=== PATIENT | male | born 1995 | race Two or more races ===

== ENCOUNTER 2024-03-04 08:35 | Emergency (ER) | payer MEDICAID, SELFPAY ==
[2024-03-04 08:46] VITALS: BP 195/97; PULSE 123; RESP 24; TEMP 36.6; O2SAT 95; BMI 29.6
--- NOTE | 2024-03-04 09:04 | PC.NURSE ---
Pt. here from home to bed 1, pt. states he woke up at 5 and went poop then started having a gastritis attack, pt. is diaphoretic and lifting himself off the bed, pt. vomiting and states he has vomited 5 or 6 times. Pt. denies any blood in his poop.
[2024-03-04 09:06] VITALS: PULSE 89
--- NOTE | 2024-03-04 09:08 | EDNOTE_ITS ---
ED Abdominal Pain RME/HPI General Chief Complaint: Abdominal Pain Stated complaint: GASTRITIS Time seen by provider: 03/04/24 08:37 Arrival date/time: 03/04/24 08:35 Limitations: no limitations RME / HPI RME / HPI narrative: 28 year old male with history of gastritis presents to the ED for complaint of gastritis attack beginning this morning. Described as burning in sensation that is located most to the epigastric region, rating as moderate-severe. Accompanied by nausea and vomiting. Mentioned yesterday had more diary products than he normally would and unsure if that is contributing to his symptoms. Stat es his last attack was 2 months ago and evaluated here with improvement. No other associated symptoms or complaints reported. Denies fevers, chills, chest pain, cough, shortness of breath, diarrhea, constipation, or urinary symptoms. Related Data Home Medications ?Medication ?Instructions ?Recorded ?Confirmed omeprazole 20 mg capsule,delayed 20 mg PO QDAY 05/30/23 05/30/23 release trazodone 50 mg tablet 50 mg PO QHSPRN PRN Insomnia 05/30/23 11/13/23 Previous Rx's ?Medication ?Instructions ?Recorded pantoprazole 40 mg tablet,delayed 40 mg PO QDAY #30 tabs 06/10/23 release (Protonix) dicyclomine 20 mg tablet 20 mg PO TID PRN abdominal pain 08/02/23 #20 tabs famotidine 40 mg tablet 40 mg PO BID #14 tabs 08/02/23 ibuprofen 600 mg tablet 600 mg PO Q8H PRN pain #14 tabs 08/02/23 ondansetron 4 mg disintegrating 4 mg PO Q8H PRN nausea and 08/02/23 tablet vomiting #20 tabs metoclopramide HCl 10 mg tablet 10 mg PO Q6H PRN nausea and 09/15/23 (Reglan) vomiting #20 tabs aluminum-mag hydroxide-simethicone 5 ml PO Q3H PRN dyspepsia #3,000 mL 01/03/24 200 mg-200 mg-20 mg/5 mL oral susp (Advanced Antacid-Antigas) ondansetron 4 mg disintegrating 4 mg PO Q8H PRN nausea and 01/03/24 tablet vomiting #14 tabs Allergies Allergy/AdvReac Type Severity Reaction Status Date / Time No Known Allergies Allergy Verified 01/06/24 14:31 Review of Systems Review of Systems Narrative Review of Systems: GEN: No fever, no chills, no weight loss EYES: No discharge, no visual changes, no pain HEENT: No ear pain, no congestion, no sore throat PULM: No shortness of breath, no cough, no congestion CV: No chest pain, no dyspnea on exertion, no palpitations GI: +nausea, +vomiting, no diarrhea, + pain, no constipation : No frequency, no urgency, no dysuria MUSC/SKEL: No joint pain, no back pain SKIN: No rash NEURO: No weakness, no headache Past Medical History Past Medical History MUSCULOSKELETAL: Positive Fractures (Ankle fracture) PSYCHO/SOCIAL: Positive Recreational Drug Use (Vape Marijuana), Depression and Anxiety OTHER HISTORY: Positive Hospitalization Family History FAMILY HISTORY: Positive Family Cardiac Disorders Surgical History SURGICAL: Negative Cardiac Surgery, Endocrine Surgery, Ear Surgery or Neurologic Surgery Social History SMOKING STATUS: Current every day smoker SUBSTANCE USE: marijuana ED Exam General Limitations: Present no limitations General appearance: Present alert and in distress (appears to be in pain, moving in bed) Head Head exam: Present atraumatic, normocephalic and normal inspection Eye Eye exam: Present normal appearance, PERRL and EOMI ENT ENT exam: Present normal exam, normal oropharynx and mucous membranes moist Neck Neck exam: Present normal inspection, full ROM and trachea midline Chest Chest inspection: Present normal inspection and symmetric chest wall rise Respiratory Respiratory exam: Present normal lung sounds bilaterally Cardiovascular Cardiovascular exam: Present regular rate, normal rhythm and normal heart sounds Abdominal Exam Abdominal exam: Present soft, tenderness (generalized moderate tenderness throughout ) and normal bowel sounds Extremities Exam Extremities exam: Present normal inspection and full ROM Back Exam Back exam: Present normal inspection and full ROM Neurological Exam Neurological exam: Present alert, oriented X3 and CN II-XII intact Psychiatric Psychiatric exam: Present normal affect and normal mood Skin Skin exam: Present warm, dry, intact and normal color Course Quality Measures none Orders Category Date Time Status [employer] Repairer STAT Care 03/04/24 09:06 Active Continuous Pulse Oximetry STAT Care 03/04/24 09:06 Active Insert IV STAT Care 03/04/24 09:06 Active NPO STAT Care 03/04/24 09:06 Active CBC Stat Lab 03/04/24 10:02 Completed Comprehensive Metabolic Panel Stat Lab 03/04/24 10:02 Completed Lipase Stat Lab 03/04/24 10:02 Completed Magnesium Stat Lab 03/04/24 10:02 Completed Urinalysis Stat Lab 03/04/24 09:06 Stop Req Famotidine Inj [Pepcid Inj] Med 03/04/24 09:05 Discontinued 20 mg IVP X1 ONE HYDROmorphone INJ [Dilaudid Inj] Med 03/04/24 09:05 Active 1 mg IVP Q1H PRN Ondansetron Inj [Zofran Inj] Med 03/04/24 09:09 Discontinued 4 mg IV X1 ONE Pantoprazole Inj [Protonix Inj] Med 03/04/24 09:05 Discontinued 40 mg IVP X1 ONE Sodium Chloride 0.9% 1000 ml [Ns] 1,000 ml Med 03/04/24 09:05 Discontinued IV 999 mls/hr Sucralfate Susp [Carafate Susp] Med 03/04/24 09:05 Discontinued 1 gm PO X1 ONE mg Hyd/Al Hyd/Patricia Susp [Maalox Susp] Med 03/04/24 09:05 Discontinued 30 ml PO X1 ONE Reevaluation(s) Reevaluation #1: Patient reports improvement after medications. No complaints at this time. We reviewed all the results, analysis, and treatment plans. Patient is amenable to discharge. Strict return precautions were outlined. Patient was discharged in stable condition. Time: 11:20 Vital Signs Vital signs: Vital Signs Temperature 97.9 F 03/04/24 08:46 Pulse Rate 123 H 03/04/24 08:46 Respiratory Rate 24 H 03/04/24 08:46 Blood Pressure 195/97 H 03/04/24 08:46 Pulse Oximetry (%) 95 03/04/24 08:46 Oxygen Delivery Method Room Air 03/04/24 08:46 Pulse ox is 95% on room air which is adequate. Abdominal Pain MDM MDM Narrative MDM Narrative:: IZahraa am scribing for and in the presence of Dr. Draper. Patient data External records reviewed:: [facility] previous records (I reviewed ED visit on 01/08/2024 for similar pain ) Clinical information provided by:: patient Social determinants that could affect healthcare access:: substance use (Marijuana ) Patient has the following chronic illnesses:: Gastritis How is presenting disease/condition affected by chronic disease/condition?: exacerbated by Evaluation data The following diagnostics were reviewed and interpreted by me:: lab results Lab and/or radiology exams considered but not ordered:: None Interpretation Summary: Electrolytes wnl Medications / Prescriptions Medications or Prescriptions considered but not ordered:: None Medication administrations:: Medication Administration History Hydromorphone HCl (Hydromorphone Inj 2 Mg/Ml Vial) 1 mg IVP Q1H PRN PRN Reason: gastritis Stop: 03/04/24 12:06 Last Admin: 03/04/24 10:03 Dose: 1 mg Documented By: Admin: 03/04/24 09:25 Dose: 1 mg Documented By: MS Discontinued Medications Al Hydrox/Mg Hydrox/Simethicone (Mg Hyd/Al Hyd/Patricia (Maalox Reg) Susp 30 Ml Udc) 30 ml PO X1 ONE Stop: 03/04/24 09:06 Last Admin: 03/04/24 09:23 Dose: 30 ml Documented By: MS Famotidine (Famotidine Inj 10 Mg/Ml Vial 2 Ml) 20 mg IVP X1 ONE Stop: 03/04/24 09:06 Last Admin: 03/04/24 09:25 Dose: 20 mg Documented By: MS Sodium Chloride (Ns) 1,000 mls @ 999 mls/hr IV .Q1H1M ONE Stop: 03/04/24 10:05 Last Infusion: 03/04/24 10:52 Dose: Infused Documented By: Admin: 03/04/24 09:36 Dose: 999 mls/hr Documented By: MS Ondansetron HCl (Ondansetron Inj 2 Mg/Ml Inj 2 Ml) 4 mg IV X1 ONE; Protocol Stop: 03/04/24 09:10 Last Admin: 03/04/24 09:24 Dose: 4 mg Documented By: MS Pantoprazole Sodium (Pantoprazole Inj 40 Mg Vial) 40 mg IVP X1 ONE Stop: 03/04/24 09:06 Last Admin: 03/04/24 09:24 Dose: 40 mg Documented By: MS Sucralfate (Sucralfate Susp 1 Gm/10 Ml Udc) 1 gm PO X1 ONE Stop: 03/04/24 09:06 Last Admin: 03/04/24 10:03 Dose: 1 gm Documented By: MS See above Consultations Consultation(s) initiated? (list below): No Diagnosis Differential diagnosis abdominal pain: abdominal pain, calculus of kidney, gastroenteritis and other (Gastritis ) Most likely diagnosis given after review of the tests above:: Gastritis Cyclical vomiting Admission Indicated Admission indicated?: not indicated Admission Request Was there a request for admission?: No Disposition Plan Disposition Plan: Discharge Discharge Attestation Discharge Attestation: The patient and all family members were given an opportunity to ask questions and understood the discharge instructions. Discharge instructions specifically effects, indications for sooner follow up or return to the emergency department, and the expected course of current diagnosis. Patient condition: Stable Discharge Plan Plan Patient Disposition: HOME (Self Care) Disposition Comment: Stable for discharge Patient condition on transfer: Stable Prescriptions/Referrals Prescriptions/Med Rec: No Action ondansetron 4 mg tablet,disintegrating 4 mg PO Q8H PRN (Reason: nausea and vomiting) Qty: 14 0RF alum-mag hydroxide-simeth [Advanced Antacid-Antigas] 200-200-20 mg/5 mL suspension 5 ml PO Q3H PRN (Reason: dyspepsia) Qty: 3000 0RF omeprazole 20 mg capsule,delayed release(DR/EC) 20 mg PO QDAY Patient Comments: 1 CAPSULE 30 MINUTES BEFORE MEAL ORALLY ONCE A DAY 30 DAYS trazodone 50 mg tablet 50 mg PO QHSPRN PRN (Reason: Insomnia) pantoprazole [Protonix] 40 mg tablet,delayed release (DR/EC) 40 mg PO QDAY Qty: 30 0RF dicyclomine 20 mg tablet 20 mg PO TID PRN (Reason: abdominal pain) Qty: 20 0RF ibuprofen 600 mg tablet 600 mg PO Q8H PRN (Reason: pain) Qty: 14 0RF ondansetron 4 mg tablet,disintegrating 4 mg PO Q8H PRN (Reason: nausea and vomiting) Qty: 20 0RF famotidine 40 mg tablet 40 mg PO BID Qty: 14 0RF metoclopramide HCl [Reglan] 10 mg tablet 10 mg PO Q6H PRN (Reason: nausea and vomiting) Qty: 20 0RF Referrals: Lindsay Barrera PA-C [Primary Care Provider] - In 1 week Quang Barrow MD [Physician] - In 1 week Problem List Clinical Impression: Gastritis, Cyclical vomiting Patient/Caregiver Discharge Instructions Discharge Activity: activity as tolerated Education Materials: Treating Gastritis, Understanding Gastritis, Cyclic Vomiting Syndrome, ED Gastritis (Adult) Additional Instructions: Please return to the emergency department for any worsening or any further medical problems You should avoid spicy or fatty foods for the next several days. Please follow-up with your primary care doctor within the next several days Please follow-up with Dr. Barrow within the next week or so. Dr. Barrow is a security assistant or a specialist for the stomach Print Language: Yi Stand Alone Forms: Jenn Award Info., Patient Portal Info Letter
[2024-03-04] MEDS: MG HYD/AL HYD/SIME (Maalox Reg) SUSP 30 ML UDC PO (09:23)
[2024-03-04] MEDS: ONDANSETRON INJ 2 MG/ML INJ 2 ML 4 MG IV (09:24)
[2024-03-04] MEDS: PANTOPRAZOLE INJ 40 MG VIAL IVP (09:24)
[2024-03-04] MEDS: FAMOTIDINE INJ 10 MG/ML VIAL 2 ML 20 MG IVP (09:25)
[2024-03-04] MEDS: HYDROmorphone INJ 2 MG/ML VIAL 1 MG IVP ×2 (09:25→10:03)
[2024-03-04] MEDS: SODIUM CHLORIDE 0.9% 1000 ML 1,000 ML 999 ML IV (09:36)
[2024-03-04] MEDS: SUCRALFATE SUSP 1 GM/10 ML UDC PO (10:03)
[2024-03-04 10:17] VITALS: BP 132/87; PULSE 79; RESP 19; TEMP 36.5; O2SAT 100
[2024-03-04 10:25] LABS: Basophils # (Auto) 0.1 Thou/mm3 (0.0-0.2); Basophils % (Auto) 1 % (0-2.5); Eosinophils % (Auto) 0 % (0-10); Hematocrit 38.8 % (41.0-53.0); Hemoglobin 13.3 g/dL (13.5-16.0); Immature Granulocytes % (Auto) 0 % (0-0); Immature Granulocytes Auto 0.03 Thou/mm3 (0.00-0.00); Lymphocytes # (Auto) 0.5 Thou/mm3 (1.0-4.8); Lymphocytes % (Auto) 4 % (10-50); Mean Corpuscular HGB Conc 34.3 g/dl (31.0-37.0); Mean Corpuscular Hemoglobin 31.9 pg (25.0-35.0); Mean Corpuscular Volume 93 fL (80-100); Monocytes # (Auto) 0.3 Thou/mm3 (0.0-0.8); Monocytes % (Auto) 2 % (0-12); Neutrophils # (Auto) 12.2 Thou/mm3 (1.8-7.7); Neutrophils % (Auto) 93 % (37-80); Nucleated Red Blood Cell % 0 /100 WBC (0); Platelet Count 288 Thou/mm3 (140-440); RDW Standard Deviation 45.5 fL (35.1-43.9); Red Blood Count 4.17 Miln/mm3 (4.50-5.90); White Blood Count 13.1 Thou/mm3 (3.8-10.6)
[2024-03-04 10:43] LABS: Alanine Aminotransferase 76 U/L (10-49); Albumin, Serum 4.5 gm/dL (3.5-5.0); Albumin/Globulin Ratio 2.4 (1.2-2.2); Alkaline Phosphatase 76 U/L (46-116); Anion Gap 8 (7-16); Aspartate Amino Transferase 25 U/L (0-34); BUN/Creatinine Ratio 16 Ratio (12-20); Bilirubin,Total 0.4 mg/dL (0.3-1.2); Blood Urea Nitrogen 11 mg/dL (9-23); Calcium 8.4 mg/dL (8.3-10.6); Calcium (Corrected) 8.4 mg/dL (8.5-10.1); Chloride 110 mMol/L (98-107); Creatinine (Component) 0.7 mg/dL (0.6-1.3); Estimated Creatinine Clearance 169.8 mL/min (>60); Globulin 1.9 gm/dL (2.3-3.5); Glucose 148 mg/dL (74-106); Lipase 38 U/L (12-53); Magnesium 1.9 mg/dL (1.6-2.6); Osmolality,Calculated 287 (275-295); Potassium 3.6 mMol/L (3.4-5.1); Sodium 143 mMol/L (136-145); Total Protein 6.4 gm/dL (5.7-8.2); eGFR > 60 See Note
[2024-03-04 12:00] VITALS: BP 124/89; PULSE 76; RESP 16; TEMP 37; O2SAT 96
== END 2024-03-04 12:06 | disposition home or self-care (01) ==
PROVIDERS: Emergency Provider Emergency Medicine; PCP Physician Assistant
DX: K29.70 Gastritis, unspecified, without bleeding (principal)
CPT/HCPCS: 36415; 80053; 81001; 83690; 83735; 85025; 96361; 96374; 96375; 99284; J2405; J2470; J3490; J7030; A9270

== ENCOUNTER 2024-03-05 09:00 | Emergency (ER) | payer MEDICAID, SELFPAY ==
[2024-03-05 09:11] VITALS: BP 148/67; PULSE 90; RESP 18; TEMP 36.6; O2SAT 97; BMI 27.9
--- NOTE | 2024-03-05 09:19 | EKG_ITS ---
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
--- NOTE | 2024-03-05 09:42 | PD.EDRME ---
Rapid Medical Screening Exam RME Arrival date/time: 03/05/24 09:00 28-year-old male with a history of alcoholism reports with complaints of abdominal pain and vomiting Chief Complaint: Abdominal Pain Time Seen by Provider: 03/05/24 09:06 Vital signs: Vital Signs Temperature 97.9 F 03/05/24 09:11 Pulse Rate 90 03/05/24 09:11 Respiratory Rate 18 03/05/24 09:11 Blood Pressure 148/67 H 03/05/24 09:11 Pulse Oximetry (%) 97 03/05/24 09:11 Oxygen Delivery Method Room Air 03/05/24 09:11
[2024-03-05] MEDS: SODIUM CHLORIDE 0.9% 1000 ML 1,000 ML 999 ML IV (09:50)
[2024-03-05] MEDS: METOCLOPRAMIDE INJ 5 MG/ML VIAL 2 ML 10 MG IVP (09:50)
[2024-03-05 10:27] LABS: Alcohol, Blood Medical < 3.0 mg/dL (0-10.0)
--- NOTE | 2024-03-05 10:29 | PD.EDABDPN ---
ED Abdominal Pain RME/HPI General Chief Complaint: Abdominal Pain Stated complaint: ABDOMINAL PAIN Time seen by provider: 03/05/24 09:06 Arrival date/time: 03/05/24 09:00 Limitations: no limitations RME / HPI RME / HPI narrative: 03/05/24 09:00 28-year-old male with a history of alcoholism reports with complaints of abdominal pain and vomiting DR. KAIA GRIMES ED EVALUATION: 28 year old male with history of gastritis presents to the ED for complaint of abdominal pain beginning this morning. Pain described as burning in sensation that is located most to the epigastric region, rating as severe. Accompanied by nausea and vomiting. Reportedly pain today is similar to previous gastritis attacks and was last evaluated here yesterday. Denies eating any spicy foods at home. Denies fevers, chills, chest pain, cough, shortness of breath, diarrhea, constipation, or urinary symptoms. Patient mentioned he had been referred to GI at [facility] in [place] and is pending an appointment. Related Data Home Medications ?Medication ?Instructions ?Recorded ?Confirmed omeprazole 20 mg capsule,delayed 20 mg PO QDAY 05/30/23 05/30/23 release trazodone 50 mg tablet 50 mg PO QHSPRN PRN Insomnia 05/30/23 11/13/23 Previous Rx's ?Medication ?Instructions ?Recorded pantoprazole 40 mg tablet,delayed 40 mg PO QDAY #30 tabs 06/10/23 release (Protonix) dicyclomine 20 mg tablet 20 mg PO TID PRN abdominal pain 08/02/23 #20 tabs famotidine 40 mg tablet 40 mg PO BID #14 tabs 08/02/23 ibuprofen 600 mg tablet 600 mg PO Q8H PRN pain #14 tabs 08/02/23 ondansetron 4 mg disintegrating 4 mg PO Q8H PRN nausea and 08/02/23 tablet vomiting #20 tabs metoclopramide HCl 10 mg tablet 10 mg PO Q6H PRN nausea and 09/15/23 (Reglan) vomiting #20 tabs aluminum-mag hydroxide-simethicone 5 ml PO Q3H PRN dyspepsia #3,000 mL 01/03/24 200 mg-200 mg-20 mg/5 mL oral susp (Advanced Antacid-Antigas) ondansetron 4 mg disintegrating 4 mg PO Q8H PRN nausea and 01/03/24 tablet vomiting #14 tabs famotidine 40 mg tablet (Pepcid) 40 mg PO BID #30 tabs 03/10/24 metoclopramide HCl 10 mg tablet 10 mg PO Q6H PRN nausea and 03/10/24 (Reglan) vomiting #30 tabs Allergies Allergy/AdvReac Type Severity Reaction Status Date / Time No Known Allergies Allergy Verified 03/05/24 09:01 Review of Systems Review of Systems Narrative Review of Systems: GEN: No fever, no chills, no weight loss EYES: No discharge, no visual changes, no pain HEENT: No ear pain, no congestion, no sore throat PULM: No shortness of breath, no cough, no congestion CV: No chest pain, no dyspnea on exertion, no palpitations GI: + nausea, + vomiting, no diarrhea, +pain, no constipation : No frequency, no urgency, no dysuria MUSC/SKEL: No joint pain, no back pain SKIN: No rash PSYCH: No hallucinations, no depression HEME/LYMPH: No easy bleeding or bruising tendencies NEURO: No weakness, no headache Past Medical History Past Medical History MUSCULOSKELETAL: Positive Fractures (Ankle fracture) PSYCHO/SOCIAL: Positive Recreational Drug Use (Vape Marijuana), Depression and Anxiety OTHER HISTORY: Positive Hospitalization Family History FAMILY HISTORY: Positive Family Cardiac Disorders; Negative Family Psychiatric Problems, Family Respiratory Disorders, Family Gastrointestinal Problems, Family Cancer, Family Surgery or Family Anesthesia Reaction Surgical History SURGICAL: Negative Cardiac Surgery, Endocrine Surgery, Ear Surgery or Neurologic Surgery Social History SMOKING STATUS: Current every day smoker SUBSTANCE USE: marijuana ED Exam General Limitations: Present no limitations General appearance: Present alert and other (Appears in pain, moving on the gurney ) Head Head exam: Present atraumatic, normocephalic and normal inspection Eye Eye exam: Present normal appearance, PERRL and EOMI ENT ENT exam: Present normal exam, normal oropharynx and mucous membranes moist Neck Neck exam: Present normal inspection, full ROM and trachea midline Chest Chest inspection: Present normal inspection and symmetric chest wall rise Respiratory Respiratory exam: Present normal lung sounds bilaterally Cardiovascular Cardiovascular exam: Present regular rate, normal rhythm and normal heart sounds Abdominal Exam Abdominal exam: Present soft, tenderness (generalized moderate tenderness throughout ) and normal bowel sounds Extremities Exam Extremities exam: Present normal inspection and full ROM Back Exam Back exam: Present normal inspection and full ROM Neurological Exam Neurological exam: Present alert, oriented X3 and CN II-XII intact Psychiatric Psychiatric exam: Present normal affect and normal mood Skin Skin exam: Present warm, dry, intact and normal color Course Quality Measures none Orders Category Date Time Status [employer] STAT Care 03/05/24 10:31 Completed EKG (ED ONLY) *Do not use* NOW Care 03/05/24 09:19 Completed Discharge Routine Discharge 03/05/24 15:04 Active EKG (ED Only) Stat Exams 03/05/24 09:19 Draft XR chest 1V portable Stat Exams 03/05/24 14:00 Completed Alcohol, Blood Medical Stat Lab 03/05/24 09:50 Completed CBC Stat Lab 03/05/24 09:50 Completed Comprehensive Metabolic Panel Stat Lab 03/05/24 09:50 Completed Lipase Stat Lab 03/05/24 09:50 Completed Bismuth Subsalicyl [Pepto-Bismol] Med 03/05/24 15:15 Discontinued 2 tab PO X1 ONE DiphenhydrAMINE INJ [Benadryl Inj] Med 03/05/24 10:31 Discontinued 12.5 mg IVP X1 ONE Famotidine Inj [Pepcid Inj] Med 03/05/24 10:31 Discontinued 20 mg IVP X1 ONE Folic Acid Inj Med 03/05/24 09:18 Discontinued 1 mg IM X1 ONE HYDROmorphone INJ [Dilaudid Inj] Med 03/05/24 10:31 Discontinued 1 mg IVP X1 ONE HYDROmorphone INJ [Dilaudid Inj] Med 03/05/24 13:15 Discontinued 1 mg IVP X1 ONE Metoclopramide Inj [Reglan Inj] Med 03/05/24 09:14 Discontinued 10 mg IVP X1 ONE Multivitamin Inj [Infuvite Inj] Med 03/05/24 09:18 Discontinued 10 ml IV X1 ONE Sodium Chloride 0.9% 1000 ml [Ns] 1,000 ml Med 03/05/24 09:14 Discontinued IV 999 mls/hr Sucralfate Susp [Carafate Susp] Med 03/05/24 10:31 Discontinued 1 gm PO X1 ONE Thiamine Inj [Vitamin B-1 Inj] Med 03/05/24 09:18 Discontinued 100 mg IM X1 ONE mg Hyd/Al Hyd/Patricia Susp [Maalox Susp] Med 03/05/24 10:31 Discontinued 30 ml PO X1 ONE Reevaluation(s) Reevaluation #1: Patient still complains of pain, will order additional medications. Time: 10:30 Vital Signs Vital signs: Vital Signs Temperature 97.9 F 03/05/24 09:11 Pulse Rate 90 03/05/24 09:11 Respiratory Rate 18 03/05/24 09:11 Blood Pressure 148/67 H 03/05/24 09:11 Pulse Oximetry (%) 97 03/05/24 09:11 Oxygen Delivery Method Room Air 03/05/24 09:11 Pulse ox is 97% on room air which is adequate. Abdominal Pain MDM MDM Narrative MDM Narrative:: Zahraa Hoang am scribing for and in the presence of Dr. Draper. Patient data External records reviewed:: [facility] previous records (I reviewed yesterdays ED visit for similar pain ) Clinical information provided by:: patient Social determinants that could affect healthcare access:: substance use (Marijuana ) Patient has the following chronic illnesses:: Gastritis How is presenting disease/condition affected by chronic disease/condition?: caused by Evaluation data The following diagnostics were reviewed and interpreted by me:: lab results and EKG tracing(s) Lab and/or radiology exams considered but not ordered:: None Interpretation Summary: WBC elevated at 12.4 however improved from yesterdays visit Medications / Prescriptions Medications or Prescriptions considered but not ordered:: None Medication administrations:: Medication Administration History Discontinued Medications Al Hydrox/Mg Hydrox/Simethicone (Mg Hyd/Al Hyd/Patricia (Maalox Reg) Susp 30 Ml Udc) 30 ml PO X1 ONE Stop: 03/05/24 10:32 Last Admin: 03/05/24 10:45 Dose: 30 ml Documented By: FELICIA Bismuth Subsalicylate (Bismuth Subsalicyl 1 Tablet (Pepto-Bismol)) 2 tab PO X1 ONE Stop: 03/05/24 15:16 Last Admin: 03/05/24 15:23 Dose: 2 tab Documented By: CORNELIUS Diphenhydramine HCl (Diphenhydramine Inj 50 Mg/Ml Vial) 12.5 mg IVP X1 ONE Stop: 03/05/24 10:32 Last Admin: 03/05/24 10:47 Dose: 12.5 mg Documented By: FELICIA Famotidine (Famotidine Inj 10 Mg/Ml Vial 2 Ml) 20 mg IVP X1 ONE Stop: 03/05/24 10:32 Last Admin: 03/05/24 10:47 Dose: 20 mg Documented By: FELICIA Folic Acid (Folic Acid Inj 1 Mg/0.2 Ml) 1 mg IM X1 ONE Stop: 03/05/24 09:19 Last Admin: 03/05/24 10:36 Dose: Not Given Documented By: VG Non-Admin Reason: Discontinued Hydromorphone HCl (Hydromorphone Inj 2 Mg/Ml Vial) 1 mg IVP X1 ONE Stop: 03/05/24 10:32 Last Admin: 03/05/24 10:44 Dose: 1 mg Documented By: FELICIA Hydromorphone HCl (Hydromorphone Inj 2 Mg/Ml Vial) 1 mg IVP X1 ONE Stop: 03/05/24 13:16 Last Admin: 03/05/24 13:31 Dose: 1 mg Documented By: FELICIA Sodium Chloride (Ns) 1,000 mls @ 999 mls/hr IV .Q1H1M ONE Stop: 03/05/24 10:14 Last Infusion: 03/05/24 11:35 Dose: Infused Documented By: Admin: 03/05/24 09:50 Dose: 999 mls/hr Documented By: FELICIA Metoclopramide HCl (Metoclopramide Inj 5 Mg/Ml Vial 2 Ml) 10 mg IVP X1 ONE; Protocol Stop: 03/05/24 09:15 Last Admin: 03/05/24 09:50 Dose: 10 mg Documented By: FELICIA Multivitamins/Minerals (Multivitamin Inj 10 Ml Vial) 10 ml IV X1 ONE Stop: 03/05/24 09:19 Last Admin: 03/05/24 10:36 Dose: Not Given Documented By: VG Non-Admin Reason: Cancelled by Provider Sucralfate (Sucralfate Susp 1 Gm/10 Ml Udc) 1 gm PO X1 ONE Stop: 03/05/24 10:32 Last Admin: 03/05/24 10:50 Dose: 1 gm Documented By: FELICIA Thiamine HCl (Thiamine Inj 100 Mg/Ml Vial 2 Ml) 100 mg IM X1 ONE Stop: 03/05/24 09:19 Last Admin: 03/05/24 10:36 Dose: Not Given Documented By: VG Non-Admin Reason: Discontinued See above Consultations Consultation(s) initiated? (list below): No Diagnosis Differential diagnosis abdominal pain: abdominal pain, acute appendicitis, calculus of kidney, constipation and other (Gastritis ) Most likely diagnosis given after review of the tests above:: gastritis Admission Indicated Admission indicated?: not indicated Admission Request Was there a request for admission?: No Disposition Plan Disposition Plan: Discharge Discharge Attestation Discharge Attestation: The patient and all family members were given an opportunity to ask questions and understood the discharge instructions. Discharge instructions specifically effects, indications for sooner follow up or return to the emergency department, and the expected course of current diagnosis. Patient condition: Stable Discharge Plan Plan Patient Disposition: HOME (Self Care) Disposition Comment: Stable for discharge Patient condition on transfer: Stable Prescriptions/Referrals Prescriptions/Med Rec: No Action ondansetron 4 mg tablet,disintegrating 4 mg PO Q8H PRN (Reason: nausea and vomiting) Qty: 14 0RF alum-mag hydroxide-simeth [Advanced Antacid-Antigas] 200-200-20 mg/5 mL suspension 5 ml PO Q3H PRN (Reason: dyspepsia) Qty: 3000 0RF omeprazole 20 mg capsule,delayed release(DR/EC) 20 mg PO QDAY Patient Comments: 1 CAPSULE 30 MINUTES BEFORE MEAL ORALLY ONCE A DAY 30 DAYS trazodone 50 mg tablet 50 mg PO QHSPRN PRN (Reason: Insomnia) pantoprazole [Protonix] 40 mg tablet,delayed release (DR/EC) 40 mg PO QDAY Qty: 30 0RF dicyclomine 20 mg tablet 20 mg PO TID PRN (Reason: abdominal pain) Qty: 20 0RF ibuprofen 600 mg tablet 600 mg PO Q8H PRN (Reason: pain) Qty: 14 0RF ondansetron 4 mg tablet,disintegrating 4 mg PO Q8H PRN (Reason: nausea and vomiting) Qty: 20 0RF famotidine 40 mg tablet 40 mg PO BID Qty: 14 0RF metoclopramide HCl [Reglan] 10 mg tablet 10 mg PO Q6H PRN (Reason: nausea and vomiting) Qty: 20 0RF metoclopramide HCl [Reglan] 10 mg tablet 10 mg PO Q6H PRN (Reason: nausea and vomiting) Qty: 30 0RF famotidine [Pepcid] 40 mg tablet 40 mg PO BID Qty: 30 0RF Referrals: [facility] [Outside] - In 1 week No Primary/Family,Physician [Primary Care Provider] - In 1 week Problem List Clinical Impression: Gastritis, Vomiting Patient/Caregiver Discharge Instructions Discharge Activity: activity as tolerated Diet Instructions: A gastritis diet involves eating bland, low-fat foods that are easy to digest. You should avoid foods that are: Spicy, Acidic, Fried, Fatty, Processed, Sugary, Caffeinated, and Alcoholic. Here are some foods you can eat on a gastritis diet: Whole grains: Brown bread, brown rice, and whole grain pasta Lean meats: Chicken and fish, preferably roasted, grilled, or boiled Eggs: A common inclusion in bland diets Leafy greens: Spinach, kale, and Bolivian chard Oats: Plain, unflavored oats are a good source of soluble fiber Lizzie: Can soothe stomach inflammation and alleviate nausea and bloating Probiotic foods: Fermented milk products like yogurt contain bacteria that promote digestion Education Materials: Understanding Gastritis, Anatomy of the Digestive System, ED Diet for Vomiting or ..., ED Gastritis (Adult) Additional Instructions: Return to the emergency department for any worsening or any further medical problem Please follow-up with your primary care doctor within the next several days Print Language: Japanese Stand Alone Forms: Jenn Award Info., Patient Portal Info Letter
[2024-03-05] MEDS: HYDROmorphone INJ 2 MG/ML VIAL 1 MG IVP ×2 (10:44→13:31)
[2024-03-05] MEDS: MG HYD/AL HYD/SIME (Maalox Reg) SUSP 30 ML UDC PO (10:45)
[2024-03-05] MEDS: DiphenhydrAMINE INJ 50 MG/ML VIAL 12.5 MG IVP (10:47)
[2024-03-05] MEDS: FAMOTIDINE INJ 10 MG/ML VIAL 2 ML 20 MG IVP (10:47)
[2024-03-05] MEDS: SUCRALFATE SUSP 1 GM/10 ML UDC PO (10:50)
[2024-03-05 10:54] LABS: Alanine Aminotransferase 71 U/L (10-49); Albumin, Serum 4.9 gm/dL (3.5-5.0); Albumin/Globulin Ratio 2.3 (1.2-2.2); Alkaline Phosphatase 69 U/L (46-116); Anion Gap 9 (7-16); Aspartate Amino Transferase 31 U/L (0-34); BUN/Creatinine Ratio 11 Ratio (12-20); Basophils # (Auto) 0.1 Thou/mm3 (0.0-0.2); Basophils % (Auto) 0 % (0-2.5); Bilirubin,Total 0.5 mg/dL (0.3-1.2); Blood Urea Nitrogen 9 mg/dL (9-23); Calcium 9.2 mg/dL (8.3-10.6); Calcium (Corrected) 9.2 mg/dL (8.5-10.1); Carbon Dioxide 23.9 mMol/L (20.0-31.0); Chloride 106 mMol/L (98-107); Creatinine (Component) 0.8 mg/dL (0.6-1.3); Eosinophils % (Auto) 0 % (0-10); Estimated Creatinine Clearance 144.7 mL/min (>60); Globulin 2.1 gm/dL (2.3-3.5); Glucose 138 mg/dL (74-106); Hematocrit 41.4 % (41.0-53.0); Hemoglobin 14.4 g/dL (13.5-16.0); Immature Granulocytes % (Auto) 0 % (0-0); Immature Granulocytes Auto 0.05 Thou/mm3 (0.00-0.00); Lipase 33 U/L (12-53); Lymphocytes # (Auto) 0.8 Thou/mm3 (1.0-4.8); Lymphocytes % (Auto) 7 % (10-50); Mean Corpuscular HGB Conc 34.8 g/dl (31.0-37.0); Mean Corpuscular Volume 92 fL (80-100); Monocytes # (Auto) 0.5 Thou/mm3 (0.0-0.8); Monocytes % (Auto) 4 % (0-12); Neutrophils # (Auto) 10.9 Thou/mm3 (1.8-7.7); Neutrophils % (Auto) 88 % (37-80); Nucleated Red Blood Cell % 0 /100 WBC (0); Osmolality,Calculated 278 (275-295); Platelet Count 325 Thou/mm3 (140-440); Potassium 3.6 mMol/L (3.4-5.1); RDW Standard Deviation 45.9 fL (35.1-43.9); Sodium 139 mMol/L (136-145); White Blood Count 12.4 Thou/mm3 (3.8-10.6); eGFR > 60 See Note
[2024-03-05 12:00] VITALS: PULSE 72
[2024-03-05 12:04] VITALS: BP 146/96; PULSE 100; RESP 15; TEMP 36.7; O2SAT 99
--- NOTE | 2024-03-05 14:00 | XR_ITS ---
Examination: AP chest single view Technique: AP portable semiupright chest single view Exam date and time: March 05, 2024 1407 hrs. Comparison September 06, 2020 Indications: Onset chest pain today. Findings: Normal heart size Lungs are clear. The osseous structures are intact Impression: No active disease
[2024-03-05 14:31] VITALS: BP 127/89; PULSE 93; RESP 15; O2SAT 97
--- NOTE | 2024-03-05 15:11 | PC.NURSE ---
spoke w/pharmacy regarding med they will bring it
[2024-03-05] MEDS: BISMUTH SUBSALICYL 1 TABLET (Pepto-Bismol) 2 TAB PO (15:23)
[2024-03-05 15:40] VITALS: BP 125/65; PULSE 90; RESP 16; TEMP 36.6; O2SAT 99
== END 2024-03-05 15:40 | disposition home or self-care (01) ==
PROVIDERS: Physician Assistant; Emergency Provider Emergency Medicine
DX: K29.70 Gastritis, unspecified, without bleeding (principal); R07.9 Chest pain, unspecified
CPT/HCPCS: 36415; 71045; 80053; 80320; 83690; 85025; 93005; 96361; 96374; 96375; 96376; 99284; J1200; J2765; J3490; J7030; A9270; G0480

== ENCOUNTER 2024-03-10 19:34 | Emergency (ER) | payer MEDICAID, SELFPAY ==
[2024-03-10 19:42] VITALS: BP 159/75; PULSE 106; RESP 20; TEMP 37; O2SAT 98; BMI 28.1
--- NOTE | 2024-03-10 19:57 | EDNOTE_ITS ---
<Statement entered by Janet Nieves MD - 03/11/24 19:39> As co-signing physician, I was present and available for consult prn. I concur with the plan and care as documented by the midlevel provider. ED Abdominal Pain RME/HPI General Chief Complaint: Abdominal Pain Stated complaint: ABD PAIN Time seen by provider: 03/10/24 19:47 Arrival date/time: 03/10/24 19:34 RME / HPI RME / HPI narrative: 28-year-old male patient with significant history of gastritis in the past, came in for evaluation regarding epigastric tenderness. Onset of symptoms since earlier today as sudden onset of epigastric tenderness, severity moderate associated with nausea. Patient had surgery today right foot in [facility] for foot reconstruction according to him. Patient was given ketamine prior to arrival. Denies any other complaints or medications taken prior to arrival. Related Data Home Medications ?Medication ?Instructions ?Recorded ?Confirmed omeprazole 20 mg capsule,delayed 20 mg PO QDAY 05/30/23 05/30/23 release trazodone 50 mg tablet 50 mg PO QHSPRN PRN Insomnia 05/30/23 11/13/23 Previous Rx's ?Medication ?Instructions ?Recorded pantoprazole 40 mg tablet,delayed 40 mg PO QDAY #30 tabs 06/10/23 release (Protonix) dicyclomine 20 mg tablet 20 mg PO TID PRN abdominal pain 08/02/23 #20 tabs famotidine 40 mg tablet 40 mg PO BID #14 tabs 08/02/23 ibuprofen 600 mg tablet 600 mg PO Q8H PRN pain #14 tabs 08/02/23 ondansetron 4 mg disintegrating 4 mg PO Q8H PRN nausea and 08/02/23 tablet vomiting #20 tabs metoclopramide HCl 10 mg tablet 10 mg PO Q6H PRN nausea and 09/15/23 (Reglan) vomiting #20 tabs aluminum-mag hydroxide-simethicone 5 ml PO Q3H PRN dyspepsia #3,000 mL 01/03/24 200 mg-200 mg-20 mg/5 mL oral susp (Advanced Antacid-Antigas) ondansetron 4 mg disintegrating 4 mg PO Q8H PRN nausea and 01/03/24 tablet vomiting #14 tabs famotidine 40 mg tablet (Pepcid) 40 mg PO BID #30 tabs 03/10/24 metoclopramide HCl 10 mg tablet 10 mg PO Q6H PRN nausea and 03/10/24 (Reglan) vomiting #30 tabs Allergies Allergy/AdvReac Type Severity Reaction Status Date / Time No Known Allergies Allergy Verified 03/05/24 09:01 Review of Systems Review of Systems Narrative Review of Systems: Review of system reviewed and within normal limits except mentioned in HPI ED Exam Narrative Physical exam: VITAL SIGNS: Reviewed. GENERAL APPEARANCE: Alert and interactive, follows commands, no acute distress, HEAD AND FACE: Non-traumatic. ENT: PERRL, pink conjunctivitis, eyelid no trauma, Mucous membrane moist. NECK: Supple, nontender, no nuchal rigidity. CHEST: No tenderness, no crepitus, no paradoxical movement, no retractions. LUNGS: Clear, well ventilated, symmetric, no rales, no wheezing, no ronchi, no stridor, good breath sounds bilaterally. HEART: Regular rate, regular rhythm, no murmur, no gallops. ABDOMEN: Soft, positive bowel sounds, nondistended, no guarding, epigastric tenderness, no rebound, no masses, RECTAL: Deferred. GENITAL: Deferred. NEUROLOGICAL: Gross motor function intact sensory function intact, Appropriate for age. MUSCULOSKELETAL: low back nontender, full range of motion. EXTREMITIES: Nontender, full range of motion. SKIN: Color pink, dry, no rash, no lacerations, no abrasions, no contusions. LYMPHATICS: Deferred. Course Quality Measures none Orders Category Date Time Status CBC [CBC] Stat Lab 03/10/24 20:44 Completed CMP [Comprehensive Metabolic Panel] Stat Lab 03/10/24 20:44 Completed Lipase Stat Lab 03/10/24 20:44 Completed DiphenhydrAMINE INJ [Benadryl Inj] Med 03/10/24 19:54 Discontinued 50 mg IVP X1 ONE Famotidine Inj [Pepcid Inj] Med 03/10/24 19:55 Discontinued 20 mg IVP X1 ONE Haloperidol Lactate [Haldol Inj] Med 03/10/24 19:56 Discontinued 5 mg IM X1 ONE Metoclopramide Inj [Reglan Inj] Med 03/10/24 19:54 Discontinued 10 mg IVP X1 ONE Vital Signs Vital signs: Vital Signs Temperature 98.6 F 03/10/24 19:42 Pulse Rate 106 H 03/10/24 19:42 Respiratory Rate 20 03/10/24 19:42 Blood Pressure 159/75 H 03/10/24 19:42 Pulse Oximetry (%) 98 03/10/24 19:42 Oxygen Delivery Method Room Air 03/10/24 19:42 Abdominal Pain MDM MDM Narrative MDM Narrative:: Patient's laboratory workup all came back unremarkable. Patient was given Haldol, Reglan, Benadryl, and Pepcid with complete resolution of symptoms. 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 CBC CMP all came back normal. Lipase is normal Medications / Prescriptions Medications or Prescriptions considered but not ordered:: None Medication administrations:: Medication Administration History Discontinued Medications Diphenhydramine HCl (Diphenhydramine Inj 50 Mg/Ml Vial) 50 mg IVP X1 ONE Stop: 03/10/24 19:55 Last Admin: 03/10/24 20:01 Dose: 50 mg Documented By: CVL Famotidine (Famotidine Inj 10 Mg/Ml Vial 2 Ml) 20 mg IVP X1 ONE Stop: 03/10/24 19:56 Last Admin: 03/10/24 20:00 Dose: 20 mg Documented By: CVL Haloperidol Lactate (Haloperidol Lact Inj 5 Mg/Ml Vial) 5 mg IM X1 ONE Stop: 03/10/24 19:57 Last Admin: 03/10/24 19:59 Dose: 5 mg Documented By: CVL Metoclopramide HCl (Metoclopramide Inj 5 Mg/Ml Vial 2 Ml) 10 mg IVP X1 ONE; Protocol Stop: 03/10/24 19:55 Last Admin: 03/10/24 20:04 Dose: 10 mg Documented By: CVL Reglan, Haldol, famotidine and Benadryl Consultations Consultation(s) initiated? (list below): No Diagnosis Differential diagnosis abdominal pain: abdominal pain, gastroenteritis, pancreatitis and other (Gastritis) Most likely diagnosis given after review of the tests above:: Gastritis, abdominal pain Admission Indicated Admission indicated?: indicated Explain why admission is indicated or not indicated:: Stable for discharge Admission Request Was there a request for admission?: No Disposition Plan Disposition Plan: Discharge Discharge Attestation Discharge Attestation: The patient was given an opportunity to ask questions and understood the discharge instructions. Discharge instructions specifically effects, indications for sooner follow up or return to the emergency department, and the expected course of current diagnosis. Patient condition: Stable Discharge Plan Plan Patient Disposition: HOME (Self Care) Disposition Comment: stable Prescriptions/Referrals Prescriptions/Med Rec: New metoclopramide HCl [Reglan] 10 mg tablet 10 mg PO Q6H PRN (Reason: nausea and vomiting) Qty: 30 0RF famotidine [Pepcid] 40 mg tablet 40 mg PO BID Qty: 30 0RF No Action ondansetron 4 mg tablet,disintegrating 4 mg PO Q8H PRN (Reason: nausea and vomiting) Qty: 14 0RF alum-mag hydroxide-simeth [Advanced Antacid-Antigas] 200-200-20 mg/5 mL suspension 5 ml PO Q3H PRN (Reason: dyspepsia) Qty: 3000 0RF omeprazole 20 mg capsule,delayed release(DR/EC) 20 mg PO QDAY Patient Comments: 1 CAPSULE 30 MINUTES BEFORE MEAL ORALLY ONCE A DAY 30 DAYS trazodone 50 mg tablet 50 mg PO QHSPRN PRN (Reason: Insomnia) pantoprazole [Protonix] 40 mg tablet,delayed release (DR/EC) 40 mg PO QDAY Qty: 30 0RF dicyclomine 20 mg tablet 20 mg PO TID PRN (Reason: abdominal pain) Qty: 20 0RF ibuprofen 600 mg tablet 600 mg PO Q8H PRN (Reason: pain) Qty: 14 0RF ondansetron 4 mg tablet,disintegrating 4 mg PO Q8H PRN (Reason: nausea and vomiting) Qty: 20 0RF famotidine 40 mg tablet 40 mg PO BID Qty: 14 0RF metoclopramide HCl [Reglan] 10 mg tablet 10 mg PO Q6H PRN (Reason: nausea and vomiting) Qty: 20 0RF Referrals: No Primary/Family,Physician [Referring Provider] - In 1 week Problem List Clinical Impression: Abdominal pain Patient/Caregiver Discharge Instructions Discharge Activity: activity as tolerated Education Materials: Abdominal Pain Additional Instructions: Thank you for the opportunity for serving you today. You are stable for discharged . You are advised to: Follow-up with your PCP in 1 to 2 days Return to ED for worsening of symptoms Increase oral fluids Take medication as prescribed Print Language: Croatian Stand Alone Forms: Jenn Award Info., Patient Portal Info Letter PA/ZOIE Supervising Physician PA/ESTHETICIAN PERMANENT MAKEUP ARTIST Supervising Physician: MD Ezequiel
[2024-03-10] MEDS: HALOPERIDOL LACT INJ 5 MG/ML VIAL IM (19:59)
[2024-03-10] MEDS: FAMOTIDINE INJ 10 MG/ML VIAL 2 ML 20 MG IVP (20:00)
[2024-03-10] MEDS: DiphenhydrAMINE INJ 50 MG/ML VIAL IVP (20:01)
[2024-03-10] MEDS: METOCLOPRAMIDE INJ 5 MG/ML VIAL 2 ML 10 MG IVP (20:04)
[2024-03-10 20:37] VITALS: BP 136/96; PULSE 92; RESP 20; O2SAT 99
[2024-03-10 20:57] LABS: Basophils % (Auto) 0 % (0-2.5); Eosinophils % (Auto) 0 % (0-10); Hemoglobin 14.2 g/dL (13.5-16.0); Immature Granulocytes % (Auto) 0 % (0-0); Immature Granulocytes Auto 0.05 Thou/mm3 (0.00-0.00); Lymphocytes % (Auto) 7 % (10-50); Mean Corpuscular HGB Conc 35.5 g/dl (31.0-37.0); Mean Corpuscular Hemoglobin 32.5 pg (25.0-35.0); Mean Corpuscular Volume 92 fL (80-100); Monocytes # (Auto) 1.1 Thou/mm3 (0.0-0.8); Monocytes % (Auto) 7 % (0-12); Neutrophils # (Auto) 13.2 Thou/mm3 (1.8-7.7); Neutrophils % (Auto) 86 % (37-80); Nucleated Red Blood Cell % 0 /100 WBC (0); Platelet Count 218 Thou/mm3 (140-440); RDW Standard Deviation 45.1 fL (35.1-43.9); Red Blood Count 4.37 Miln/mm3 (4.50-5.90); White Blood Count 15.4 Thou/mm3 (3.8-10.6)
[2024-03-10 21:14] LABS: Alanine Aminotransferase 41 U/L (10-49); Albumin, Serum 4.6 gm/dL (3.5-5.0); Albumin/Globulin Ratio 2.3 (1.2-2.2); Alkaline Phosphatase 63 U/L (46-116); Anion Gap 7 (7-16); Aspartate Amino Transferase 43 U/L (0-34); BUN/Creatinine Ratio 10 Ratio (12-20); Bilirubin,Total 0.3 mg/dL (0.3-1.2); Blood Urea Nitrogen 9 mg/dL (9-23); Calcium 9.3 mg/dL (8.3-10.6); Calcium (Corrected) 9.3 mg/dL (8.5-10.1); Carbon Dioxide 27.1 mMol/L (20.0-31.0); Chloride 105 mMol/L (98-107); Creatinine (Component) 0.9 mg/dL (0.6-1.3); Estimated Creatinine Clearance 128.9 mL/min (>60); Glucose 131 mg/dL (74-106); Lipase 32 U/L (12-53); Osmolality,Calculated 278 (275-295); Potassium 3.9 mMol/L (3.4-5.1); Sodium 139 mMol/L (136-145); Total Protein 6.6 gm/dL (5.7-8.2); eGFR > 60 See Note
[2024-03-10 22:23] VITALS: BP 133/88; PULSE 89; RESP 16; O2SAT 99
== END 2024-03-10 22:37 | disposition home or self-care (01) ==
PROVIDERS: Nurse Practitioner Family; Emergency Provider Emergency Medicine; PCP Family Medicine
DX: R10.9 Unspecified abdominal pain (principal)
CPT/HCPCS: 36415; 80053; 83690; 85025; 96372; 96374; 96375; 99284; J1200; J1630; J2765; J3490

== ENCOUNTER 2024-04-21 19:43 | Emergency (ER) | payer MEDICAID, SELFPAY ==
[2024-04-21 19:52] VITALS: PULSE 109; RESP 22; TEMP 37; O2SAT 97
--- NOTE | 2024-04-21 19:53 | PC.NURSE ---
unable to obtain b/p at this time, pt is jerking body back and fourth and is unable to follow commands. CN aware.
--- NOTE | 2024-04-21 19:57 | PD.EDABDPN ---
ED Abdominal Pain RME/HPI General Chief Complaint: Skin/Abscess/Foreign Body Stated complaint: ABDOMINAL PAIN Time seen by provider: 04/21/24 19:55 Arrival date/time: 04/21/24 19:43 RME / HPI RME / HPI narrative: 28-year-old male patient with significant history of cannabinoid hyperemesis syndrome, came in for evaluation regarding sudden onset of vomiting, abdominal pain, restless, crying, moaning, severity moderate. Everything started after eating dinner today. Patient has been vomiting a lot according to him also. Nonbloody. Denies any fever denies any other complaints patient admits of smoking marijuana still however stopped drinking alcohol. Was given Tylenol with no relief. Related Data Home Medications ?Medication ?Instructions ?Recorded ?Confirmed omeprazole 20 mg capsule,delayed 20 mg PO QDAY 05/30/23 05/30/23 release trazodone 50 mg tablet 50 mg PO QHSPRN PRN Insomnia 05/30/23 11/13/23 Previous Rx's ?Medication ?Instructions ?Recorded pantoprazole 40 mg tablet,delayed 40 mg PO QDAY #30 tabs 06/10/23 release (Protonix) dicyclomine 20 mg tablet 20 mg PO TID PRN abdominal pain 08/02/23 #20 tabs famotidine 40 mg tablet 40 mg PO BID #14 tabs 08/02/23 ibuprofen 600 mg tablet 600 mg PO Q8H PRN pain #14 tabs 08/02/23 ondansetron 4 mg disintegrating 4 mg PO Q8H PRN nausea and 08/02/23 tablet vomiting #20 tabs metoclopramide HCl 10 mg tablet 10 mg PO Q6H PRN nausea and 09/15/23 (Reglan) vomiting #20 tabs aluminum-mag hydroxide-simethicone 5 ml PO Q3H PRN dyspepsia #3,000 mL 01/03/24 200 mg-200 mg-20 mg/5 mL oral susp (Advanced Antacid-Antigas) ondansetron 4 mg disintegrating 4 mg PO Q8H PRN nausea and 01/03/24 tablet vomiting #14 tabs famotidine 40 mg tablet (Pepcid) 40 mg PO BID #30 tabs 03/10/24 metoclopramide HCl 10 mg tablet 10 mg PO Q6H PRN nausea and 03/10/24 (Reglan) vomiting #30 tabs dicyclomine 20 mg tablet 20 mg PO TID PRN abdominal pain 04/21/24 #20 tabs famotidine 40 mg tablet (Pepcid) 40 mg PO BID #14 tabs 04/21/24 metoclopramide HCl 10 mg tablet 10 mg PO Q6H PRN nausea and 04/21/24 (Reglan) vomiting #20 tabs Allergies Allergy/AdvReac Type Severity Reaction Status Date / Time No Known Allergies Allergy Verified 03/05/24 09:01 Review of Systems Review of Systems Narrative Review of Systems: Review of system reviewed and within normal limits except mentioned in HPI ED Exam Narrative Physical exam: VITAL SIGNS: Reviewed. GENERAL APPEARANCE: Alert and interactive, follows commands, no acute distress, HEAD AND FACE: Non-traumatic. ENT: PERRL, pink conjunctivitis, eyelid no trauma, Mucous membrane moist. NECK: Supple, nontender, no nuchal rigidity. CHEST: No tenderness, no crepitus, no paradoxical movement, no retractions. LUNGS: Clear, well ventilated, symmetric, no rales, no wheezing, no ronchi, no stridor, good breath sounds bilaterally. HEART: Regular rate, regular rhythm, no murmur, no gallops. ABDOMEN: Soft, positive bowel sounds, nondistended, no guarding, epigastric tenderness, no rebound, no masses, RECTAL: Deferred. GENITAL: Deferred. NEUROLOGICAL: Gross motor function intact sensory function intact, Appropriate for age. MUSCULOSKELETAL: low back nontender, full range of motion. EXTREMITIES: Nontender, full range of motion. SKIN: Color pink, dry, no rash, no lacerations, no abrasions, no contusions. LYMPHATICS: Deferred. Course Quality Measures none Orders Category Date Time Status CBC Stat Lab 04/21/24 20:10 Completed Comprehensive Metabolic Panel Stat Lab 04/21/24 20:10 Completed Lipase Stat Lab 04/21/24 20:10 Completed Prothrombin Time with INR Stat Lab 04/21/24 20:10 Completed CHLORpromAZINE INJ [Thorazine Inj] Med 04/21/24 19:56 Discontinued 25 mg IV X1 ONE DiphenhydrAMINE INJ [Benadryl Inj] Med 04/21/24 19:55 Discontinued 50 mg IVP X1 ONE Ketorolac Inj [Toradol Inj] Med 04/21/24 19:55 Discontinued 30 mg IVP X1 ONE Metoclopramide Inj [Reglan Inj] Med 04/21/24 19:55 Discontinued 10 mg IVP X1 ONE Sodium Chloride 0.9% 1000 ml [Ns] 1,000 ml Med 04/21/24 19:56 Discontinued IV 999 mls/hr Vital Signs Vital signs: Vital Signs Temperature 98.6 F 04/21/24 19:52 Pulse Rate 109 H 04/21/24 19:52 Respiratory Rate 22 H 04/21/24 19:52 Pulse Oximetry (%) 97 04/21/24 19:52 Oxygen Delivery Method Room Air 04/21/24 19:52 Abdominal Pain MDM MDM Narrative MDM Narrative:: 28-year-old male patient with significant history of cannabinoid hyperemesis syndrome, came in for evaluation regarding sudden onset of vomiting, abdominal pain, restless, crying, moaning, severity moderate. Everything started after eating dinner today. Patient has been vomiting a lot according to him also. Nonbloody. Denies any fever denies any other complaints patient admits of smoking marijuana still however stopped drinking alcohol. Was given Tylenol with no relief. Patient's workup today all came back normal. Patient was given IV fluids, Reglan, Thorazine, Benadryl, with significant improvement of symptoms. Patient data External records reviewed:: None Clinical information provided by:: none Social determinants that could affect healthcare access:: substance use Patient has the following chronic illnesses:: Cannabinoid hyperemesis syndrome How is presenting disease/condition affected by chronic disease/condition?: exacerbated by Evaluation data The following diagnostics were reviewed and interpreted by me:: lab results Lab and/or radiology exams considered but not ordered:: None Interpretation Summary: Laboratory workup all came back unremarkable. Medications / Prescriptions Medications or Prescriptions considered but not ordered:: None Medication administrations:: Medication Administration History Discontinued Medications Chlorpromazine HCl (Chlorpromazine Inj 25 Mg/Ml Ampule 2ml) 25 mg IV X1 ONE Stop: 04/21/24 19:57 Last Admin: 04/21/24 20:22 Dose: 25 mg Documented By: MARIAH Diphenhydramine HCl (Diphenhydramine Inj 50 Mg/Ml Vial) 50 mg IVP X1 ONE Stop: 04/21/24 19:56 Last Admin: 01/24/25 20:22 Dose: 50 mg Documented By: EE Sodium Chloride (Ns) 1,000 mls @ 999 mls/hr IV .Q1H1M ONE Stop: 04/21/24 20:56 Last Infusion: 04/21/24 22:44 Dose: Infused Documented By: Admin: 04/21/24 20:23 Dose: 999 mls/hr Documented By: EE Ketorolac Tromethamine (Ketorolac Inj 30 Mg/Ml Vial) 30 mg IVP X1 ONE Stop: 04/21/24 19:56 Last Admin: 04/21/24 20:23 Dose: 30 mg Documented By: EE Metoclopramide HCl (Metoclopramide Inj 5 Mg/Ml Vial 2 Ml) 10 mg IVP X1 ONE; Protocol Stop: 04/21/24 19:56 Last Admin: 04/21/24 20:22 Dose: 10 mg Documented By: EE Toradol, Reglan, IV fluids, Benadryl, and Thorazine IV Consultations Consultation(s) initiated? (list below): No Diagnosis Differential diagnosis abdominal pain: abdominal pain and constipation Most likely diagnosis given after review of the tests above:: Cannabinoid hyperemesis syndrome Admission Indicated Admission indicated?: not indicated Explain why admission is indicated or not indicated:: Discharge stable Admission Request Was there a request for admission?: No Disposition Plan Disposition Plan: Discharge Discharge Attestation Discharge Attestation: The patient was given an opportunity to ask questions and understood the discharge instructions. Discharge instructions specifically effects, indications for sooner follow up or return to the emergency department, and the expected course of current diagnosis. Patient condition: Stable Discharge Plan Plan Patient Disposition: HOME (Self Care) Disposition Comment: Stable Prescriptions/Referrals Prescriptions/Med Rec: New metoclopramide HCl [Reglan] 10 mg tablet 10 mg PO Q6H PRN (Reason: nausea and vomiting) Qty: 20 0RF dicyclomine 20 mg tablet 20 mg PO TID PRN (Reason: abdominal pain) Qty: 20 0RF famotidine [Pepcid] 40 mg tablet 40 mg PO BID Qty: 14 0RF No Action ondansetron 4 mg tablet,disintegrating 4 mg PO Q8H PRN (Reason: nausea and vomiting) Qty: 14 0RF alum-mag hydroxide-simeth [Advanced Antacid-Antigas] 200-200-20 mg/5 mL suspension 5 ml PO Q3H PRN (Reason: dyspepsia) Qty: 3000 0RF omeprazole 20 mg capsule,delayed release(DR/EC) 20 mg PO QDAY Patient Comments: 1 CAPSULE 30 MINUTES BEFORE MEAL ORALLY ONCE A DAY 30 DAYS trazodone 50 mg tablet 50 mg PO QHSPRN PRN (Reason: Insomnia) pantoprazole [Protonix] 40 mg tablet,delayed release (DR/EC) 40 mg PO QDAY Qty: 30 0RF dicyclomine 20 mg tablet 20 mg PO TID PRN (Reason: abdominal pain) Qty: 20 0RF ibuprofen 600 mg tablet 600 mg PO Q8H PRN (Reason: pain) Qty: 14 0RF ondansetron 4 mg tablet,disintegrating 4 mg PO Q8H PRN (Reason: nausea and vomiting) Qty: 20 0RF famotidine 40 mg tablet 40 mg PO BID Qty: 14 0RF metoclopramide HCl [Reglan] 10 mg tablet 10 mg PO Q6H PRN (Reason: nausea and vomiting) Qty: 20 0RF metoclopramide HCl [Reglan] 10 mg tablet 10 mg PO Q6H PRN (Reason: nausea and vomiting) Qty: 30 0RF famotidine [Pepcid] 40 mg tablet 40 mg PO BID Qty: 30 0RF Referrals: Nadir Khoury MD [Primary Care Provider] - In 1 week Problem List Clinical Impression: Abdominal pain, Cannabinoid hyperemesis syndrome Patient/Caregiver Discharge Instructions Discharge Activity: activity as tolerated Education Materials: ED Vomiting (Adult) Additional Instructions: Thank you for the opportunity for serving you today. You are stable for discharged . You are advised to: Follow-up with your PCP in 1 to 2 days Return to ED for worsening of symptoms Increase oral fluids Take medication as prescribed Stop abusing or using marijuana which could be the reason for your symptoms Print Language: Japanese Stand Alone Forms: Jenn Award Info., Patient Portal Info Letter PA/ZOIE Supervising Physician NATANAEL/ZOIE Supervising Physician: MD Malou
[2024-04-21 20:03] VITALS: PULSE 66; RESP 24; O2SAT 99; BMI 28.8
[2024-04-21 20:07] VITALS: BP 153/110
[2024-04-21] MEDS: METOCLOPRAMIDE INJ 5 MG/ML VIAL 2 ML 10 MG IVP (20:22)
[2024-04-21] MEDS: CHLORpromAZINE INJ 25 MG/ML AMPULE 2ML IV (20:22)
[2024-04-21] MEDS: DiphenhydrAMINE INJ 50 MG/ML VIAL IVP (20:22)
[2024-04-21] MEDS: SODIUM CHLORIDE 0.9% 1000 ML 1,000 ML 999 ML IV (20:23)
[2024-04-21] MEDS: KETOROLAC INJ 30 MG/ML VIAL IVP (20:23)
[2024-04-21 20:26] LABS: Basophils # (Auto) 0.1 Thou/mm3 (0.0-0.2); Basophils % (Auto) 0 % (0-2.5); Eosinophils % (Auto) 0 % (0-10); Hematocrit 38.6 % (41.0-53.0); Hemoglobin 13.5 g/dL (13.5-16.0); Immature Granulocytes % (Auto) 0 % (0-0); Immature Granulocytes Auto 0.05 Thou/mm3 (0.00-0.00); Lymphocytes # (Auto) 0.9 Thou/mm3 (1.0-4.8); Lymphocytes % (Auto) 6 % (10-50); Mean Corpuscular Hemoglobin 31.8 pg (25.0-35.0); Mean Corpuscular Volume 91 fL (80-100); Monocytes # (Auto) 0.8 Thou/mm3 (0.0-0.8); Monocytes % (Auto) 5 % (0-12); Neutrophils # (Auto) 13.9 Thou/mm3 (1.8-7.7); Neutrophils % (Auto) 89 % (37-80); Nucleated Red Blood Cell % 0 /100 WBC (0); Platelet Count 275 Thou/mm3 (140-440); RDW Standard Deviation 41.9 fL (35.1-43.9); Red Blood Count 4.24 Miln/mm3 (4.50-5.90); White Blood Count 15.8 Thou/mm3 (3.8-10.6)
[2024-04-21 20:43] LABS: Prothrombin Time 10.9 Seconds (9.0-12.2)
[2024-04-21 20:48] LABS: Alanine Aminotransferase 112 U/L (10-49); Albumin, Serum 4.9 gm/dL (3.5-5.0); Alkaline Phosphatase 65 U/L (46-116); Anion Gap 11 (7-16); Aspartate Amino Transferase 110 U/L (0-34); BUN/Creatinine Ratio 12 Ratio (12-20); Bilirubin,Total 0.4 mg/dL (0.3-1.2); Blood Urea Nitrogen 11 mg/dL (9-23); Calcium 10.1 mg/dL (8.3-10.6); Calcium (Corrected) 10.1 mg/dL (8.5-10.1); Carbon Dioxide 26.7 mMol/L (20.0-31.0); Chloride 105 mMol/L (98-107); Creatinine (Component) 0.9 mg/dL (0.6-1.3); Estimated Creatinine Clearance 130.5 mL/min (>60); Globulin 2.5 gm/dL (2.3-3.5); Glucose 150 mg/dL (74-106); Lipase 41 U/L (12-53); Osmolality,Calculated 287 (275-295); Potassium 3.8 mMol/L (3.4-5.1); Sodium 143 mMol/L (136-145); Total Protein 7.4 gm/dL (5.7-8.2); eGFR > 60 See Note
[2024-04-21 21:47] VITALS: BP 120/82; PULSE 110; RESP 18; TEMP 36.9; O2SAT 97
[2024-04-21 23:51] VITALS: BP 136/89; PULSE 108; RESP 17; TEMP 36.9; O2SAT 97
== END 2024-04-22 00:09 | disposition home or self-care (01) ==
PROVIDERS: Nurse Practitioner Family; Emergency Provider Emergency Medicine; PCP Family Medicine
DX: F12.90 Cannabis use, unspecified, uncomplicated (principal); R11.2 Nausea with vomiting, unspecified; R10.9 Unspecified abdominal pain
CPT/HCPCS: 36415; 80053; 83690; 85025; 85610; 96361; 96374; 96375; J1200; J1885; J2765; J3230; J7030

== ENCOUNTER 2024-06-11 07:21 | Observation (INO) | payer MEDICAID, SELFPAY ==
[2024-06-11] VITALS (15 sets, daily range): BP systolic 111–146; BP diastolic 58–94; PULSE 60–135; RESP 17–24; TEMP 36.5–37.3; O2SAT 95–98; BMI 28.8; BMI 27.3
--- NOTE | 2024-06-11 07:29 | PD.EDABDPN ---
ED Abdominal Pain RME/HPI General Chief Complaint: Abdominal Pain Stated complaint: ABD PAIN Time seen by provider: 06/11/24 07:23 Arrival date/time: 06/11/24 07:21 Source: patient, EMS and old records reviewed Mode of arrival: ambulatory Limitations: no limitations RME / HPI RME / HPI narrative: DR. WESTFALL MAIN ED EVALUATION: 28-year-old male patient with significant history of cannabinoid hyperemesis syndrome, presents to the emergency department by ambulance came in for evaluation regarding sudden onset of vomiting, abdominal pain, restlessness after smoking marijuana 30 minutes prior to arrival. Patient is crying, moaning, severity- moderate. Patient states he has had similar symptoms after smoking marijuana. Patient has nausea and dry heaving is unable to keep any fluid down. Denies vomiting. No black, dark or foul-smelling diarrhea/stools Denies any fever denies any other complaints patient admits of smoking marijuana still however stopped drinking alcohol. Related Data Home Medications ?Medication ?Instructions ?Recorded ?Confirmed omeprazole 20 mg capsule,delayed 20 mg PO QDAY 05/30/23 05/30/23 release trazodone 50 mg tablet 50 mg PO QHSPRN PRN Insomnia 05/30/23 11/13/23 Previous Rx's ?Medication ?Instructions ?Recorded pantoprazole 40 mg tablet,delayed 40 mg PO QDAY #30 tabs 06/10/23 release (Protonix) dicyclomine 20 mg tablet 20 mg PO TID PRN abdominal pain 08/02/23 #20 tabs famotidine 40 mg tablet 40 mg PO BID #14 tabs 08/02/23 ibuprofen 600 mg tablet 600 mg PO Q8H PRN pain #14 tabs 08/02/23 ondansetron 4 mg disintegrating 4 mg PO Q8H PRN nausea and 08/02/23 tablet vomiting #20 tabs metoclopramide HCl 10 mg tablet 10 mg PO Q6H PRN nausea and 09/15/23 (Reglan) vomiting #20 tabs aluminum-mag hydroxide-simethicone 5 ml PO Q3H PRN dyspepsia #3,000 mL 01/03/24 200 mg-200 mg-20 mg/5 mL oral susp (Advanced Antacid-Antigas) ondansetron 4 mg disintegrating 4 mg PO Q8H PRN nausea and 01/03/24 tablet vomiting #14 tabs famotidine 40 mg tablet (Pepcid) 40 mg PO BID #30 tabs 03/10/24 metoclopramide HCl 10 mg tablet 10 mg PO Q6H PRN nausea and 03/10/24 (Reglan) vomiting #30 tabs dicyclomine 20 mg tablet 20 mg PO TID PRN abdominal pain 04/21/24 #20 tabs famotidine 40 mg tablet (Pepcid) 40 mg PO BID #14 tabs 04/21/24 metoclopramide HCl 10 mg tablet 10 mg PO Q6H PRN nausea and 04/21/24 (Reglan) vomiting #20 tabs Allergies Allergy/AdvReac Type Severity Reaction Status Date / Time No Known Allergies Allergy Verified 03/05/24 09:01 Review of Systems Review of Systems Systems Reviewed: All systems reviewed, normal except as documented Gastrointestinal Gastrointestinal: Reports abdominal pain, Reports cramping, Reports heartburn and Reports nausea Past Medical History Past Medical History CARDIAC: Negative Cardiac Disorders RESPIRATORY: Negative Asthma GASTROINTESTINAL: Negative Gastrointestinal Disorders or Gastroesophageal Reflux Disease GENITOURINARY: Negative Genitourinary Disorders or Renal Disease PSYCHO/SOCIAL: Positive Recreational Drug Use, Depression and Anxiety OTHER HISTORY: Positive Hospitalization Family History FAMILY HISTORY: Positive Family Cardiac Disorders; Negative Family Psychiatric Problems, Family Respiratory Disorders, Family Gastrointestinal Problems, Family Cancer, Family Surgery or Family Anesthesia Reaction Surgical History SURGICAL: Negative Cardiac Surgery, Endocrine Surgery, Ear Surgery or Neurologic Surgery Social History SMOKING STATUS: Current every day smoker SUBSTANCE USE: marijuana ALCOHOL: Never Past Medical History Comments PMH COMMENT: Cannabis hyperemesis syndrome ED Exam Narrative Physical exam: Patient is awake and lying on stretcher. He is kicking his legs [id number]. General Limitations: Present no limitations General appearance: Present alert; Absent appears intoxicated, obese or cachectic Head Head exam: Present atraumatic Eye Eye exam: Present normal appearance and EOMI; Absent scleral icterus or nystagmus ENT ENT exam: Present normal exam, normal oropharynx and mucous membranes moist Neck Neck exam: Present normal inspection, full ROM and trachea midline Chest Chest inspection: Present normal inspection and symmetric chest wall rise Respiratory Respiratory exam: Present normal lung sounds bilaterally Cardiovascular Cardiovascular exam: Present regular rate, normal rhythm and normal heart sounds Abdominal Exam Abdominal exam: Present soft, guarding and normal bowel sounds; Absent mass exam: Present normal inspection; Absent testicular tenderness, scrotal swelling or normal testicular lie Extremities Exam Extremities exam: Present normal inspection and full ROM Back Exam Back exam: Present normal inspection and full ROM Neurological Exam Neurological exam: Present alert, oriented X3 and normal gait; Absent motor sensory deficit Psychiatric Psychiatric exam: Present normal affect; Absent homicidal ideation or suicidal ideation Skin Skin exam: Present warm, dry, intact and normal color Course Course Course Narrative: 0733: Patient placed in the bed. States this is similar to his hyperemesis secondary to cannabis and his gastritis. Medications are ordered. 0800: NS IVF and started. 0919: Sepsis alert initiated. Orders made at this time are congruent with ED Adult Sepsis Order List. Re-evaluation is to be completed. 0919- @L NS given. Addition 500 CC pending NS IVF and Zosyn started. CT ordered. 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 Care 06/11/24 09:14 Active Continuous Pulse Oximetry STAT Care 06/11/24 09:14 Completed EKG (ED ONLY) *Do not use* NOW Care 06/11/24 09:14 Completed Insert IV STAT Care 06/11/24 07:26 Active NPO STAT Care 06/11/24 09:14 Active Strict Intake and Output Routine Care 06/11/24 09:[address] chest abdomen pelvis w con SEPSIS PROTOCOL Stat Exams 06/11/24 09:14 Completed EKG (ED Only) Stat Exams 06/11/24 09:14 Draft B-Type Natriuretic Peptide Stat Lab 06/11/24 09:27 Completed Blood Culture (Lab) Stat Lab 06/11/24 09:20 Received CBC Stat Lab 06/11/24 07:55 Completed CBC Stat Lab 06/11/24 15:05 Completed Comprehensive Metabolic Panel Stat Lab 06/11/24 07:55 Completed Drug Screen,Urine Stat Lab 06/11/24 10:47 Completed LDH (Lactate Dehydrogenase) Stat Lab 06/11/24 09:27 Completed Lactate (Lactic Acid) Stat Lab 06/11/24 09:27 Completed Lactate (Lactic Acid) Stat Lab 06/11/24 10:22 Completed Lactic Acid [Lactate (Lactic Acid)] Stat Lab 06/11/24 15:05 Results Lactic Acid, 3 HR Stat Lab 06/11/24 12:56 Completed Lipase Stat Lab 06/11/24 07:55 Completed Magnesium Stat Lab 06/11/24 07:55 Completed Magnesium Stat Lab 06/11/24 09:27 Completed Partial Thromboplastin Time Stat Lab 06/11/24 09:27 Completed Phosphorous Stat Lab 06/11/24 09:27 Completed Procalcitonin Stat Lab 06/11/24 09:27 Completed Prothrombin Time with INR Stat Lab 06/11/24 09:27 Completed Troponin I Stat Lab 06/11/24 09:27 Completed Urinalysis Stat Lab 06/11/24 10:47 Completed Urine Culture Stat Lab 06/11/24 10:47 Received Famotidine Inj [Pepcid Inj] Med 06/11/24 07:24 Discontinued 20 mg IVP X1 ONE Haloperidol Lactate [Haldol Inj] Med 06/11/24 07:24 Discontinued 5 mg IM X1 ONE LORazepam [Ativan Inj] Med 06/11/24 08:10 Discontinued 1 mg IVP X1 ONE Ondansetron Inj [Zofran Inj] Med 06/11/24 07:26 Discontinued 4 mg IV X1 ONE Pantoprazole Inj [Protonix Inj] Med 06/11/24 10:38 Discontinued 40 mg IVP X1 ONE Piper/Tazo 3.375 gm Premix [Zosyn] Med 06/11/24 09:14 Discontinued 3.375 gm in 50 ml IV X1 Sodium Chloride 0.9% 1000 ml [Ns] 1,000 ml Med 06/11/24 07:24 Discontinued IV 999 mls/hr Sodium Chloride 0.9% 1000 ml [Ns] 1,000 ml Med 06/11/24 08:10 Discontinued IV 999 mls/hr Sodium Chloride 0.9% 1000 ml [Ns] 2,052 ml Med 06/11/24 09:14 Discontinued IV 2,052 mls/hr Sodium Chloride 0.9% 500 ml [Ns] 500 ml Med 06/11/24 09:35 Discontinued IV 999 mls/hr cefTRIAXone [Rocephin] 1,000 mg Med 06/11/24 16:27 Discontinued SODIUM CHLORIDE 0.9% (Popper) [Ns 0.9% (P)] 50 ml IV X1 Oxygen Delivery NOW RT 06/11/24 09:14 Active Reevaluation(s) Reevaluation #1: Patient resting comfortably in the stretcher. Repeat abdominal exam shows no rebound. No Chávez sign. Patient is not vomiting at this time. Time: 10:00 Vital Signs Vital signs: Vital Signs Temperature 97.9 F 06/11/24 07:48 Pulse Rate 135 H 06/11/24 07:48 Respiratory Rate 22 H 06/11/24 07:48 Blood Pressure 111/94 H 06/11/24 07:48 Pulse Oximetry (%) 97 06/11/24 07:48 Oxygen Delivery Method Room Air 06/11/24 07:48 Procedures -ED EKG Interpretation #1: Date of EK06/11/24 Time of EK:58 Rate: 79 Interpretation: Interpreted by me EKG Impression: Normal sinus rhythm, No acute ST-T changes and Multifocal PVCs Additional EKG comment: No ischemia Abdominal Pain MDM MDM Narrative MDM Narrative:: While in the emergency department the patient screened positive for sepsis. He is placed into a room and IV fluids are started. Patient is treated with Zosyn after all cultures. Patient denies testicular pain. Repeat heart rate at approximately 1027 is down to 83 and he is 97% on room air Suspect pneumonia, bacterial or viral gastroenteritis, small bowel obstruction, possible undiagnosed gallbladder disease, diverticulitis, appendicitis White count is 32,000. 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 1620: Patient repeat lactic acid is down to 2.6 and white count is slightly decreased as well to 27,000. I had a long discussion with the patient at this time he is tolerating p.o. and not having any abdominal pain. Suspect likely chronic cyclic syndrome versus etiology from daily marijuana however this is the highest white count that this patient has had and I am not sure how reliable he is he stated that I will try to come back when I asked him to come back in 24 hours for recheck. 1640: Hospitalist paged for admission for observation. Kyleigh Hoang am scribing for and in the presence of Dr. Westfall. Patient data External records reviewed:: [facility] previous records (Recently seen in March 2024 for similar hyperemesis secondary to cannabis) Clinical information provided by:: patient and EMS (EMS reports the patient is coming from home) Social determinants that could affect healthcare access:: substance use Patient has the following chronic illnesses:: History of gastritis, cannabis use How is presenting disease/condition affected by chronic disease/condition?: exacerbated by Evaluation data The following diagnostics were reviewed and interpreted by me:: lab results and radiology exam(s) Lab and/or radiology exams considered but not ordered:: None Interpretation Summary: See above under MDM narrative. RADIOLOGY Procedure(s): CT chest abd pel w SEPSIS PRO Accession Number(s): [id number] cc: Nadir Khoury MD; Jj Mckeon MD; Beth Westfall MD~ Examination: CT abdomen with intravenous contrast CT pelvis with intravenous contrast 2-D coronal reconstructions 2-D sagittal reconstructions Date and time of exam:June 11, 2024 0935 hrs. Indications: Sepsis today. CTDI: vol (mGy) 4.82 DLP: (mGycm) 380 Technique: Multiple axial sections of the abdomen and pelvis have been obtained. 64 slice high-resolution scanner used. 3 mm axial sections have been obtained, post intravenous injection 60 cc Isovue-370 2-D sagittal, coronal reconstructions obtained. Low dose protocols were performed. One or more of the following dose reduction techniques were used; automated exposure control, adjustment of the mA and/or KV according to patient size, use of iterative reconstruction technique. Findings: No thoracic aortic aneurysm dilatation or dissection No mediastinal lymphadenopathy No pneumonia or pulmonary edema Diffuse fatty liver Absent gallbladder No pancreatic or adrenal mass Spleen not enlarged No hydronephrosis or renal calculi Normal appendix No bowel obstruction No abdominal or pelvic abscess Urinary bladder intact Intact osseous structures Impression: No mediastinal lymphadenopathy No pneumonia or pulmonary edema or pleural disease. Fatty liver. No abdominal or pelvic abscess Dictated By: Jj Mckeon MD Procedure(s): CT chest abd pel w SEPSIS PRO Accession Number(s): [id number] cc: Nadir Khoury MD; Jj Mckeon MD; Beth Westfall MD~ Examination: CT abdomen with intravenous contrast CT pelvis with intravenous contrast 2-D coronal reconstructions 2-D sagittal reconstructions Date and time of exam:June 11, 2024 0935 hrs. Indications: Sepsis today. CTDI: vol (mGy) 4.82 DLP: (mGycm) 380 Technique: Multiple axial sections of the abdomen and pelvis have been obtained. 64 slice high-resolution scanner used. 3 mm axial sections have been obtained, post intravenous injection 60 cc Isovue-370 2-D sagittal, coronal reconstructions obtained. Low dose protocols were performed. One or more of the following dose reduction techniques were used; automated exposure control, adjustment of the mA and/or KV according to patient size, use of iterative reconstruction technique. Findings: No thoracic aortic aneurysm dilatation or dissection No mediastinal lymphadenopathy No pneumonia or pulmonary edema Diffuse fatty liver Absent gallbladder No pancreatic or adrenal mass Spleen not enlarged No hydronephrosis or renal calculi Normal appendix No bowel obstruction No abdominal or pelvic abscess Urinary bladder intact Intact osseous structures Impression: No mediastinal lymphadenopathy No pneumonia or pulmonary edema or pleural disease. Fatty liver. No abdominal or pelvic abscess Dictated By: Jj Mckeon MD Medications / Prescriptions Medications or Prescriptions considered but not ordered:: none Medication administrations:: Medication Administration History Acetaminophen (Acetaminophen 325 Mg Tablet) 650 mg PO Q6H PRN PRN Reason: Fever >100.4 or Pain 1-10 Stop: 07/11/24 17:11 Capsaicin (Capsaicin Cr 60 Gm Tube) 0 gm TOP TID [facility] Stop: 07/11/24 17:29 Enoxaparin Sodium (Enoxaparin Sod Inj 40 Mg/0.4 Ml Syringe) 40 mg SC QDAY [facility] Stop: 06/26/24 08:59 Folic Acid (Folic Acid 1 Mg Tablet) 1 mg PO BID [facility] Stop: 06/16/24 20:59 Lactated Ringer's (Lactated Ringers) 1,000 mls @ 75 mls/hr IV .[id number] [facility] Stop: 07/11/24 17:14 Lorazepam (Lorazepam 0.5 Mg Tablet) 0.5 mg PO Q4HR PRN PRN Reason: CIWA Score 2-6 Stop: 06/16/24 17:15 Lorazepam (Lorazepam 2 Mg/Ml Vial) 1 mg IV X1 PRN PRN Reason: Breakthrough Agitation Lorazepam (Lorazepam 0.5 Mg Tablet) 2 mg PO Q4HR PRN PRN Reason: CIWA SCORE 12-15 Stop: 06/16/24 17:15 Lorazepam (Lorazepam 0.5 Mg Tablet) 1 mg PO Q4HR PRN PRN Reason: CIWA SCORE 7-11 Stop: 06/16/24 17:15 Ondansetron HCl (Ondansetron Inj 2 Mg/Ml Inj 2 Ml) 4 mg IV Q6H PRN; Protocol PRN Reason: NAUSEA OR VOMITING Stop: 07/11/24 17:11 Pantoprazole Sodium (Pantoprazole 40 Mg Tablet) 40 mg PO QDAY [facility] Stop: 07/12/24 08:59 Thiamine HCl (Thiamine 100 Mg Tablet) 100 mg PO BID [facility] Stop: 06/16/24 20:59 Discontinued Medications Famotidine (Famotidine Inj 10 Mg/Ml Vial 2 Ml) 20 mg IVP X1 ONE Stop: 06/11/24 07:25 Last Admin: 06/11/24 07:40 Dose: 20 mg Documented By: DB Haloperidol Lactate (Haloperidol Lact Inj 5 Mg/Ml Vial) 5 mg IM X1 ONE Stop: 06/11/24 07:25 Last Admin: 06/11/24 07:42 Dose: 5 mg Documented By: AUGUSTUS Sodium Chloride (Ns) 1,000 mls @ 999 mls/hr IV .Q1H1M ONE Stop: 06/11/24 08:24 Last Infusion: 06/11/24 09:29 Dose: Infused Documented By: Admin: 06/11/24 07:44 Dose: 999 mls/hr Documented By: AUGUSTUS Sodium Chloride (Ns) 1,000 mls @ 999 mls/hr IV .Q1H1M ONE Stop: 06/11/24 09:10 Last Infusion: 06/11/24 09:29 Dose: Infused Documented By: Admin: 06/11/24 08:25 Dose: 999 mls/hr Documented By: DAMARIS Sodium Chloride (Ns) 2,052 mls @ 2,052 mls/hr 30 ml/kg infuse over 60 min (2052 ml) IV .Q1H ONE Stop: 06/11/24 10:13 Last Admin: 06/11/24 09:36 Dose: Not Given Documented By: AUGUSTUS Non-Admin Reason: Cancelled by Provider Piperacillin/Tazobactam/Dextrose (Zosyn) 3.375 gm in 50 mls @ 100 mls/hr IV X1 ONE Stop: 06/11/24 09:43 Last Infusion: 06/11/24 10:43 Dose: Infused Documented By: Admin: 06/11/24 09:59 Dose: 100 mls/hr Documented By: DAMARIS Sodium Chloride (Ns) 500 mls @ 999 mls/hr IV .Q31M ONE Stop: 06/11/24 10:05 Last Infusion: 06/11/24 10:43 Dose: Infused Documented By: Admin: 06/11/24 10:08 Dose: 999 mls/hr Documented By: DAMARIS Ceftriaxone Sodium 1,000 mg/ (Sodium Chloride) 50 mls @ 100 mls/hr IV X1 ONE Stop: 06/11/24 16:56 Last Admin: 06/11/24 17:00 Dose: 100 mls/hr Documented By: AUGUSTUS Lorazepam (Lorazepam 2 Mg/Ml Vial) 1 mg IVP X1 ONE Stop: 06/11/24 08:11 Last Admin: 06/11/24 08:24 Dose: 1 mg Documented By: DAMARIS Ondansetron HCl (Ondansetron Inj 2 Mg/Ml Inj 2 Ml) 4 mg IV X1 ONE Stop: 06/11/24 07:27 Last Admin: 06/11/24 07:40 Dose: 4 mg Documented By: AUGUSTUS Pantoprazole Sodium (Pantoprazole Inj 40 Mg Vial) 40 mg IVP X1 ONE Stop: 06/11/24 10:39 Last Admin: 06/11/24 11:01 Dose: 40 mg Documented By: DAMARIS see above Consultations Consultation(s) initiated? (list below): Yes Consultation #1 (Physician, Specialty, Details): Discussed test HPI, PMHx, lab, radiology results and/or management with hospitalist. Will admit for further evaluation and management. Accepts patient for admission. Time: 17:11 Diagnosis Differential diagnosis abdominal pain: abdominal pain and other (marijuana abuse, vomiting, cannabinoid hyperemesis syndrome) Most likely diagnosis given after review of the tests above:: See below. Admission Indicated Admission indicated?: indicated Admission Request Was there a request for admission?: Yes Admission Attestation Admission request attestation: Discussed case with [] from Hospitalist service regarding admission. Discussed patients ED course, exam findings, labs, and radiology results. The Hospitalist [agrees,declines] to accept the patient for admission. Disposition Plan Disposition Plan: Admit Discharge Plan Plan Patient Disposition: Admit Acute Care w/in Hospital Patient condition on transfer: Stable Problem List Clinical Impression: Abdominal pain, Vomiting, Cannabis abuse, Leukocytosis, Elevated lactic acid level, Severe sepsis Patient/Caregiver Discharge Instructions Diet Instructions: Please continue hydration with Pedialyte and or Gatorade. Avoid greasy or fatty foods or anything spicy for the next 24 to 48 hours.
[2024-06-11] MEDS: FAMOTIDINE INJ 10 MG/ML VIAL 2 ML 20 MG IVP (07:40)
[2024-06-11] MEDS: ONDANSETRON INJ 2 MG/ML INJ 2 ML 4 MG IV (07:40)
[2024-06-11] MEDS: HALOPERIDOL LACT INJ 5 MG/ML VIAL IM (07:42)
[2024-06-11] MEDS: SODIUM CHLORIDE 0.9% 1000 ML 1,000 ML 999 ML IV ×2 (07:44→08:25)
[2024-06-11 08:06] LABS: Basophils # (Auto) 0.1 Thou/mm3 (0.0-0.2); Basophils % (Auto) 0 % (0-2.5); Eosinophils % (Auto) 0 % (0-10); Hematocrit 43.2 % (41.0-53.0); Hemoglobin 15.3 g/dL (13.5-16.0); Immature Granulocytes % (Auto) 1 % (0-0); Immature Granulocytes Auto 0.26 Thou/mm3 (0.00-0.00); Lymphocytes # (Auto) 0.9 Thou/mm3 (1.0-4.8); Lymphocytes % (Auto) 3 % (10-50); Mean Corpuscular HGB Conc 35.4 g/dl (31.0-37.0); Mean Corpuscular Hemoglobin 31.4 pg (25.0-35.0); Mean Corpuscular Volume 89 fL (80-100); Monocytes # (Auto) 1.7 Thou/mm3 (0.0-0.8); Monocytes % (Auto) 5 % (0-12); Neutrophils # (Auto) 29.9 Thou/mm3 (1.8-7.7); Neutrophils % (Auto) 91 % (37-80); Nucleated Red Blood Cell % 0 /100 WBC (0); Platelet Count 251 Thou/mm3 (140-440); RDW Standard Deviation 39.7 fL (35.1-43.9); Red Blood Count 4.87 Miln/mm3 (4.50-5.90); White Blood Count 32.8 Thou/mm3 (3.8-10.6)
[2024-06-11 08:20] LABS: Alanine Aminotransferase 36 U/L (10-49); Albumin, Serum 4.6 gm/dL (3.5-5.0); Albumin/Globulin Ratio 1.7 (1.2-2.2); Alkaline Phosphatase 61 U/L (46-116); Anion Gap 16 (7-16); Aspartate Amino Transferase 27 U/L (0-34); BUN/Creatinine Ratio 11 Ratio (12-20); Bilirubin,Total 0.5 mg/dL (0.3-1.2); Blood Urea Nitrogen 9 mg/dL (9-23); Calcium 8.8 mg/dL (8.3-10.6); Calcium (Corrected) 8.8 mg/dL (8.5-10.1); Carbon Dioxide 21.5 mMol/L (20.0-31.0); Chloride 108 mMol/L (98-107); Creatinine (Component) 0.8 mg/dL (0.6-1.3); Estimated Creatinine Clearance 146.8 mL/min (>60); Globulin 2.7 gm/dL (2.3-3.5); Glucose 140 mg/dL (74-106); Lipase 30 U/L (12-53); Magnesium 1.9 mg/dL (1.6-2.6); Osmolality,Calculated 289 (275-295); Potassium 3.9 mMol/L (3.4-5.1); Sodium 145 mMol/L (136-145); Total Protein 7.3 gm/dL (5.7-8.2); eGFR > 60 See Note
[2024-06-11] MEDS: LORazepam 2 MG/ML VIAL 1 MG IVP (08:24)
--- NOTE | 2024-06-11 09:14 | EKG_ITS ---
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
--- NOTE | 2024-06-11 09:14 | XR_ITS ---
Examination: CT abdomen with intravenous contrast CT pelvis with intravenous contrast 2-D coronal reconstructions 2-D sagittal reconstructions Date and time of exam:June 11, 2024 0935 hrs. Indications: Sepsis today. CTDI: vol (mGy) 4.82 DLP: (mGycm) 380 Technique: Multiple axial sections of the abdomen and pelvis have been obtained. 64 slice high-resolution scanner used. 3 mm axial sections have been obtained, post intravenous injection 60 cc Isovue-370 2-D sagittal, coronal reconstructions obtained. Low dose protocols were performed. One or more of the following dose reduction techniques were used; automated exposure control, adjustment of the mA and/or KV according to patient size, use of iterative reconstruction technique. Findings: No thoracic aortic aneurysm dilatation or dissection No mediastinal lymphadenopathy No pneumonia or pulmonary edema Diffuse fatty liver Absent gallbladder No pancreatic or adrenal mass Spleen not enlarged No hydronephrosis or renal calculi Normal appendix No bowel obstruction No abdominal or pelvic abscess Urinary bladder intact Intact osseous structures Impression: No mediastinal lymphadenopathy No pneumonia or pulmonary edema or pleural disease. Fatty liver. No abdominal or pelvic abscess
[2024-06-11 09:48] LABS: Lactate (Lactic Acid) 4.8 mMol/L (0.4-2.0)
[2024-06-11 09:52] LABS: INR 1.1 (0.9-1.3); Partial Thromboplastin Time 23.6 Seconds (22.0-36.0); Prothrombin Time 11.7 Seconds (9.0-12.2)
[2024-06-11 09:55] LABS: B-Type Natriuretic Peptide < 20 pg/mL (0-100)
[2024-06-11] MEDS: PIPER/TAZO 3.375 GM PREMIX 3.375 GM/50 ML BAG IV (09:59)
[2024-06-11 10:03] LABS: LDH (Lactate Dehydrogenase) 241 U/L (120-246); Magnesium 1.7 mg/dL (1.6-2.6); Phosphorous 2.7 mg/dL (2.4-5.1); Procalcitonin 0.12 ng/ml (0.0-0.49); Troponin I < 0.002 ng/mL (0.0-0.045)
[2024-06-11] MEDS: SODIUM CHLORIDE 0.9% 500 ML 500 ML 999 ML IV (10:08)
[2024-06-11 10:26] LABS: Lactate (Lactic Acid) 5.2 mMol/L (0.4-2.0)
[2024-06-11 10:53] LABS: Collection Type, Urine Clean Catch; Squamous Epithelial Cell,Urine 0 /hpf (0-5)
[2024-06-11] MEDS: PANTOPRAZOLE INJ 40 MG VIAL IVP (11:01)
--- NOTE | 2024-06-11 11:02 | PRELIM_ITS ---
CT scan of the chest, abdomen and pelvis with intravenous contrast (axial sections with sagittal and coronal reformats) June 11, 2024 0935 hours Clinical History: Abdominal pain and vomiting Comparison: Reference is made to the prior report dated November 13, 2023 Findings: Linear atelectasis is seen in the lungs. There is no focal consolidation, pleural effusion or pneumothorax. The aorta is unremarkable without evidence of dissection or aneurysm. No evidence of mediastinal mass or significant lymphadenopathy. There is no pericardial effusion. There is mild fatty infiltration of the liver. The gallbladder is surgically absent. The spleen, pancreas, and adrenals are unremarkable. Mild extrarenal pelvis is seen. No evidence of bowel obstruction. The appendix is not definitively visualized; however, there is no evidence of inflammatory process in the right lower quadrant to suggest appendicitis. There is mild thickening versus underdistention of the cecum, ascending colon and hepatic flexure with mild adjacent fat stranding. The urinary bladder is incompletely distended at the time of the examination. There is no free fluid, free air or abscess. The aorta is unremarkable. Small marginal osteophytes are seen involving a few thoracic vertebrae. Mild disc disease is seen in the lumbar spine. Impression: No pneumonia or pleural effusion. No evidence of bowel obstruction or discrete fluid collection. Mild thickening versus underdistention of the right hemicolon. Recommend clinical correlation to rule out mild colitis of inflammatory or infectious etiology in the appropriate clinical setting. Other findings as described above. Report Electronically Signed By: Moose Roy 06/11/2024 11:01:04 AM [EST]
[2024-06-11 11:11] LABS: Bilirubin,Urine Negative (Negative); Blood,Urine Negative (Negative); Clarity,Urine Clear (Clear/Hazy); Color,Urine Lt-Yellow (Lt Yel-Yel); Glucose, Urine Negative (Negative); Ketones,Urine 2+ (Negative); Leukocyte Esterase,Urine Negative (Negative); Nitrite,Urine Negative (Negative); Protein,Urine Trace (Neg - Trace); RBC,Urine 2 /hpf (0-3); Urobilinogen,Urine Negative mg/dL (0.0-1.0); WBC,Urine < 1 /hpf (0-5)
[2024-06-11 11:14] LABS: Specific Gravity,Urine 1.025 (1.001-1.035)
[2024-06-11 11:15] LABS: Amphetamine/Methamp Scrn,U Negative (Negative); Barbiturate Screen,Urine Negative (Negative); Benzodiazepines Screen,Urine Negative (Negative); Benzoylecgonine Screen, Ur Negative (Negative); Fentanyl Screen,Urine Negative (Negative); Opiate Screen,Urine Negative (Negative); THC Screen,Urine Positive (Negative)
[2024-06-11 12:31] LABS: Reflex Lactate? Y
[2024-06-11 13:23] LABS: Reflex Lactate? Y
[2024-06-11 15:11] LABS: Lactate (Lactic Acid) 2.6 mMol/L (0.4-2.0)
[2024-06-11 15:12] LABS: Basophils % (Auto) 0 % (0-2.5); Eosinophils % (Auto) 0 % (0-10); Hematocrit 38.6 % (41.0-53.0); Hemoglobin 13.7 g/dL (13.5-16.0); Immature Granulocytes % (Auto) 1 % (0-0); Immature Granulocytes Auto 0.15 Thou/mm3 (0.00-0.00); Lymphocytes # (Auto) 1.1 Thou/mm3 (1.0-4.8); Lymphocytes % (Auto) 4 % (10-50); Mean Corpuscular HGB Conc 35.5 g/dl (31.0-37.0); Mean Corpuscular Hemoglobin 31.6 pg (25.0-35.0); Mean Corpuscular Volume 89 fL (80-100); Monocytes # (Auto) 1.1 Thou/mm3 (0.0-0.8); Monocytes % (Auto) 4 % (0-12); Neutrophils # (Auto) 25.2 Thou/mm3 (1.8-7.7); Neutrophils % (Auto) 92 % (37-80); Nucleated Red Blood Cell % 0 /100 WBC (0); Platelet Count 236 Thou/mm3 (140-440); RDW Standard Deviation 40.1 fL (35.1-43.9); Red Blood Count 4.34 Miln/mm3 (4.50-5.90); White Blood Count 27.5 Thou/mm3 (3.8-10.6)
[2024-06-11] MEDS: cefTRIAXone 1,000 MG in SODIUM CHLORIDE 0.9% (Popper) 50 ML 100 MG IV (17:00)
--- NOTE | 2024-06-11 17:18 | PD.RESHP ---
Documentation for date of: 06/11/24 [facility] History of Present Illness Chief complaint: Abdominal pain, nausea, vomiting 30 minutes after smoking marijuana History of present illness: Patient is a 28-year-old male with past medical history of cannabinoid hyperemesis syndrome and alcohol use disorder who presented to the ED on 06/11/2024 with abdominal pain, nausea, and vomiting about 30 minutes after smoking marijuana this morning. He reports he was unable to keep anything down and mild amount of blood tinge in the vomitus. Patient endorses smoking marijuana daily. He also drinks alcohol, recently had been trying to stay sober but relapsed, last drink was last night. Patient reports similar episodes in the past, and has multiple ED visits and past prior admissions for the same problem. Per RN report patient was initially very agitated, restless, and yelling in pain in the morning. At the time of evaluation for admission patient is very somnolent, arousable to repeated prompting and sternal rub but falling asleep repeatedly. ED Course: -Initial vitals were BP 111/94, HR 135, RR 22, and Temp 97.9, saturating 97% on room air -Labs significant for WBC 32.8->27.5, lactate 4.8->5.2->5.0->2.6, otherwise all other labs normal, including normal troponin, BNP, procalcitonin, UA -Urine tox was positive for marijuana -CT chest/abdomen/pelvis with contrast was negative for any abnormalities -Sepsis alert was initiated in the ED around 09:19 due to leukocytosis, tachypneia, tachycardia -In the ED, patient was given famotidine 20 mg IV x1, Zofran 4 mg IV x1, haloperidol 5 mg IM x1, 2L IV NS, lorazepam 1 mg IV x1, Zosyn 3.375 g IV x1, pantoprazole 40 mg IV x1, ceftriaxone 1 g IV x1 -Patient was admitted for observation for cannabinoid hyperemesis syndrome, intractable nausea and vomiting Review of Systems Review of systems otherwise negative except what is mentioned above. Past Medical History Past Medical History Comments PMH COMMENT: Past Medical History: Cannabinoid hyperemesis syndrome and alcohol use disorder Family History: Type 2 diabetes in mother, positive for family cardiac disease Surgical History: Cholecystectomy, ankle fracture s/p repair, rhinoplasty Social History: Smokes marijuana daily, drinks alcohol daily but was previously trying to quit, denies other recreational drug use Current Medications: None (Source: Patient) Allergies: No known drug allergies Exam Vital Signs Temp Pulse Resp BP Pulse Ox O2 Del Method 98.4 F 100 18 115/64 95 Room Air 06/11/24 16:24 06/11/24 16:24 06/11/24 16:24 06/11/24 16:24 06/11/24 16:24 06/11/24 16:24 Narrative Exam Physical Exam General: Somnolent in no acute distress. Repeatedly falling asleep mid-question. HEENT: Normocephalic, atraumatic, mucous membranes moist. Bilateral injected conjunctiva. Heart: Regular rate and rhythm, no murmurs. Lungs: Clear to auscultation with no wheezing or crackles. Abdomen: Soft, nondistended, nontender, positive bowel sounds. ?No guarding or rebound tenderness. Neurologic: Alert and oriented x3, no gross neurological deficit, and patient able to move all 4 extremities. Extremities: No edema. Skin: No rash or ecchymoses. Results: Labs 06/12/24 05:23 06/12/24 05:23 Labs: Short CBC 06/11/24 06/11/24 Range/Units 07:55 15:05 WBC 32.8 H 27.5 H D (3.8-10.6) Thou/mm3 Hgb 15.3 13.7 (13.5-16.0) g/dL Hct 43.2 38.6 L (41.0-53.0) % Plt Count 251 236 (140-440) Thou/mm3 BMP 06/11/24 07:55 Sodium 145 Potassium 3.9 Chloride 108 H Carbon Dioxide 21.5 BUN 9 Creatinine 0.8 Glucose 140 H Calcium 8.8 Cardiac Enzymes 06/11/24 Range/Units 09:27 Troponin I < 0.002 (0.0-0.045) ng/mL Liver Function 06/11/24 Range/Units 07:55 Total Bilirubin 0.5 (0.3-1.2) mg/dL AST 27 (0-34) U/L ALT 36 (10-49) U/L Alkaline Phosphatase 61 (46-116) U/L Albumin 4.6 (3.5-5.0) gm/dL Urine 03/16/25 Range/Units 10:47 Urine Color Lt-Yellow (Lt Yel-Yel) Urine Clarity Clear (Clear/Hazy) Urine pH 6.0 (5.0-7.0) Ur Specific [place] 1.025 (1.001-1.035) Urine Protein Trace (Neg - Trace) Urine Glucose (UA) Negative (Negative) Quality Measures Quality Measures none Medications Home Medications and Allergies Home Medications ?Medication ?Instructions ?Recorded ?Confirmed ?Type No Known Home Medications 06/12/24 06/12/24 History Allergies Allergy/AdvReac Type Severity Reaction Status Date / Time No Known Allergies Allergy Verified 03/05/24 09:01 Visit Medications Acetaminophen (Acetaminophen 325 Mg Tablet) 650 mg PO Q6H PRN PRN Reason: Fever >100.4 or Pain 1-10 Stop: 07/11/24 17:11 Capsaicin (Capsaicin Cr 60 Gm Tube) 0 gm TOP TID [facility] Stop: 07/11/24 17:29 Enoxaparin Sodium (Enoxaparin Sod Inj 40 Mg/0.4 Ml Syringe) 40 mg SC QDAY [facility] Stop: 06/26/24 08:59 Folic Acid (Folic Acid 1 Mg Tablet) 1 mg PO BID [facility] Stop: 06/16/24 20:59 Lactated Ringer's (Lactated Ringers) 1,000 mls @ 75 mls/hr IV .[id number] [facility] Stop: 07/11/24 17:14 Lorazepam (Lorazepam 0.5 Mg Tablet) 0.5 mg PO Q4HR PRN PRN Reason: CIWA Score 2-6 Stop: 06/16/24 17:15 Lorazepam (Lorazepam 2 Mg/Ml Vial) 1 mg IV X1 PRN PRN Reason: Breakthrough Agitation Lorazepam (Lorazepam 0.5 Mg Tablet) 2 mg PO Q4HR PRN PRN Reason: CIWA SCORE 12-15 Stop: 06/16/24 17:15 Lorazepam (Lorazepam 0.5 Mg Tablet) 1 mg PO Q4HR PRN PRN Reason: CIWA SCORE 7-11 Stop: 06/16/24 17:15 Ondansetron HCl (Ondansetron Inj 2 Mg/Ml Inj 2 Ml) 4 mg IV Q6H PRN; Protocol PRN Reason: NAUSEA OR VOMITING Stop: 07/11/24 17:11 Pantoprazole Sodium (Pantoprazole 40 Mg Tablet) 40 mg PO QDAY [facility] Stop: 07/12/24 08:59 Thiamine HCl (Thiamine 100 Mg Tablet) 100 mg PO BID [facility] Stop: 06/16/24 20:59 Discontinued Medications Famotidine (Famotidine Inj 10 Mg/Ml Vial 2 Ml) 20 mg IVP X1 ONE Stop: 06/11/24 07:25 Last Admin: 06/11/24 07:40 Dose: 20 mg Haloperidol Lactate (Haloperidol Lact Inj 5 Mg/Ml Vial) 5 mg IM X1 ONE Stop: 06/11/24 07:25 Last Admin: 06/11/24 07:42 Dose: 5 mg Sodium Chloride (Ns) 1,000 mls @ 999 mls/hr IV .Q1H1M ONE Stop: 06/11/24 08:24 Last Infusion: 06/11/24 09:29 Dose: Infused Sodium Chloride (Ns) 1,000 mls @ 999 mls/hr IV .Q1H1M ONE Stop: 06/11/24 09:10 Last Infusion: 06/11/24 09:29 Dose: Infused Sodium Chloride (Ns) 2,052 mls @ 2,052 mls/hr 30 ml/kg infuse over 60 min (2052 ml) IV .Q1H ONE Stop: 06/11/24 10:13 Last Admin: 06/11/24 09:36 Dose: Not Given Piperacillin/Tazobactam/Dextrose (Zosyn) 3.375 gm in 50 mls @ 100 mls/hr IV X1 ONE Stop: 06/11/24 09:43 Last Infusion: 06/11/24 10:43 Dose: Infused Sodium Chloride (Ns) 500 mls @ 999 mls/hr IV .Q31M ONE Stop: 06/11/24 10:05 Last Infusion: 06/11/24 10:43 Dose: Infused Ceftriaxone Sodium 1,000 mg/ (Sodium Chloride) 50 mls @ 100 mls/hr IV X1 ONE Stop: 06/11/24 16:56 Last Admin: 06/11/24 17:00 Dose: 100 mls/hr Lorazepam (Lorazepam 2 Mg/Ml Vial) 1 mg IVP X1 ONE Stop: 06/11/24 08:11 Last Admin: 06/11/24 08:24 Dose: 1 mg Ondansetron HCl (Ondansetron Inj 2 Mg/Ml Inj 2 Ml) 4 mg IV X1 ONE Stop: 06/11/24 07:27 Last Admin: 06/11/24 07:40 Dose: 4 mg Pantoprazole Sodium (Pantoprazole Inj 40 Mg Vial) 40 mg IVP X1 ONE Stop: 06/11/24 10:39 Last Admin: 06/11/24 11:01 Dose: 40 mg Assessment & Plan Plan 28-year-old male with past medical history of cannabinoid hyperemesis syndrome and alcohol use disorder who presented to the ED on 06/11/2024 with abdominal pain, nausea, and vomiting after smoking marijuana and had a sepsis alert initiated in ED for leukocytosis, tachycardia, and tachypneia and was subsequently admitted for observation for exacerbation of cannabinoid hyperemesis syndrome. #Intractable nausea and vomiting #Generalized abdominal pain #Cannabinoid hyperemesis syndrome #SIRS without sepsis #Leukocytosis #Lactic acidosis, resolving Patient presented with generalized abdominal pain, nausea, and vomiting. Patient met SIRS criteria with leukocytosis, tachycardia, tachypneia, likely reactive and less likely to be infectious given the patient's history, examination, and workup. While WBC is higher than previous visits at 32.8, there is no finding to suggest a sepsis source. Physical exam reveals nontender soft abdomen. CT chest/abdomen/pelvis with contrast did not show any pathology. General surgery Dr. Talbot was consulted from the ED and was not concerned for any acute abdomen or infectious etiology. Patient was thus admitted for observation and symptomatic management. -IV fluids LR at 75 ml/hr -Capsaicin topical cream TID for hyperemesis -Acetaminophen as needed for fever or pain -Zofran as needed for nausea -Follow blood cultures, urine culture -Resume diet as tolerated #Alcohol use disorder Patient endorses drinking alcohol, he was not able to clarify amount as he was somnolent. Last drink 06/10 at night. -CIWA protocol with PO lorazepam -Folic acid 1 mg PO BID -Thiamine 100 mg PO BID -network services project manager referral DVT prophylaxis: Lovenox GI prophylaxis: Pantoprazole 40 mg PO daily Diet: Regular Bishop: None Lines: Peripheral IV Antibiotics: Not indicated CODE STATUS: FULL Reason for hospitalization: Cannabinoid hyperemesis syndrome Patient plan of care was discussed with the attending physician, Dr. Reynolds. Rachel Lewis, PGY-2 Attending Provider Attestation/Addendum I reviewed labs, imaging, EKG, home medications and prior available records. Face to face evaluation was performed by me. I have personally examined the patient and discussed assessment and plan with the IM team. I reviewed the resident note and agree with the plan with exceptions as below. Intractable nausea and vomiting Dehydration Marijuana abuse Alcohol abuse Lactic acidosis Continue IV fluids Zofran as needed for nausea/vomiting Trend lactic acid Start thiamine and folic acid Counseled the patient regarding the importance of avoiding marijuana and alcohol
[2024-06-11 18:08] LABS: Reflex Lactate? Y
[2024-06-11] MEDS: RINGERS LACTATED 1000 ML 1,000 ML 75 ML IV (18:14)
[2024-06-11 18:39] LABS: Lactic Acid, 3 HR 1.5 mMol/L (0.4-2.0)
[2024-06-11] MEDS: THIAMINE 100 MG TABLET PO (20:34)
[2024-06-11] MEDS: FOLIC ACID 1 MG TABLET PO (20:34)
[2024-06-12] VITALS: BP 146/83; PULSE 76; RESP 18; TEMP 37.2; O2SAT 95
[2024-06-12 04:00] VITALS: BP 131/75; PULSE 81; RESP 18; TEMP 37.1; O2SAT 96
[2024-06-12] MEDS: LORazepam 0.5 MG TABLET PO (05:48)
[2024-06-12] MEDS: RINGERS LACTATED 1000 ML 1,000 ML 75 ML IV (05:48)
[2024-06-12 05:59] LABS: Basophils # (Auto) 0.1 Thou/mm3 (0.0-0.2); Basophils % (Auto) 0 % (0-2.5); Eosinophils % (Auto) 0 % (0-10); Hematocrit 37.6 % (41.0-53.0); Hemoglobin 13.3 g/dL (13.5-16.0); Immature Granulocytes % (Auto) 0 % (0-0); Immature Granulocytes Auto 0.06 Thou/mm3 (0.00-0.00); Lymphocytes # (Auto) 1.8 Thou/mm3 (1.0-4.8); Lymphocytes % (Auto) 9 % (10-50); Mean Corpuscular HGB Conc 35.4 g/dl (31.0-37.0); Mean Corpuscular Hemoglobin 31.8 pg (25.0-35.0); Mean Corpuscular Volume 90 fL (80-100); Monocytes # (Auto) 1.2 Thou/mm3 (0.0-0.8); Monocytes % (Auto) 6 % (0-12); Neutrophils # (Auto) 15.7 Thou/mm3 (1.8-7.7); Neutrophils % (Auto) 83 % (37-80); Nucleated Red Blood Cell % 0 /100 WBC (0); Platelet Count 353 Thou/mm3 (140-440); RDW Standard Deviation 40.9 fL (35.1-43.9); Red Blood Count 4.18 Miln/mm3 (4.50-5.90); White Blood Count 18.8 Thou/mm3 (3.8-10.6)
[2024-06-12 06:34] LABS: Anion Gap 10 (7-16); BUN/Creatinine Ratio 13 Ratio (12-20); Blood Urea Nitrogen 10 mg/dL (9-23); Calcium 9.1 mg/dL (8.3-10.6); Chloride 99 mMol/L (98-107); Creatinine (Component) 0.8 mg/dL (0.6-1.3); Glucose 105 mg/dL (74-106); Magnesium 1.8 mg/dL (1.6-2.6); Osmolality,Calculated 274 (275-295); Phosphorous 2.3 mg/dL (2.4-5.1); Potassium 3.3 mMol/L (3.4-5.1); Sodium 138 mMol/L (136-145); eGFR > 60 See Note
[2024-06-12 08:00] VITALS: BP 129/87; PULSE 86; RESP 17; TEMP 36.3; O2SAT 95
[2024-06-12] MEDS: ENOXAPARIN SOD INJ 40 MG/0.4 ML SYRINGE SC (10:01)
[2024-06-12] MEDS: PANTOPRAZOLE 40 MG TABLET PO (10:01)
[2024-06-12] MEDS: THIAMINE 100 MG TABLET PO (10:02)
[2024-06-12] MEDS: FOLIC ACID 1 MG TABLET PO (10:02)
--- NOTE | 2024-06-12 10:51 | PC.SS ---
Toni Khoury is a 28-year-old female admitted to [facility] for Cannabinoid Hyperemesis. . SS conducted bedside contact with the patient to complete initial assessment and to discuss discharge planning.? Patient confirmed demographic information. Patient identifies his Mother Adwoa Khoury [phone]. . Patient resides at home with family. Pt states he is able to complete all ADL?s independently, no need for any source of DME. Pts PCP is Dr. Khoury at [facility] last visit was on the . and pharmacy of choice is [facility]. DC option discussed and pt wishes to return home. Pt may need [facility]. No further intervention required at this time, high school social studies teacher would be available to address any further concerns. DC Plan: Home Contact: Mother Adwoa Khoury [phone] PCP: Peng
--- NOTE | 2024-06-12 11:38 | PC.NURSE ---
PATIENT REFUSED MEDICATION DUE AT 8128, PROVIDED EDUCATION
--- NOTE | 2024-06-12 11:41 | PD.RESDS ---
Planned Discharge Date 06/12/24 DS: Providers Provider Date of admission: 06/11/24 17:11 Primary care physician: Nadir Khoury MD Admitting Provider: Kaleb Reynolds MD Attending Provider on Admission: Kaleb Reynolds MD Attending Provider on DC: Kaleb Reynolds MD Discharging Provider: Rachel Lewis MD DS: Diagnosis Problem List Completed Was Problem List Reviewed/Reconciled?: Yes Hospital Course Hospital Course Hospital course: Reason for hospitalization: Cannabinoid hyperemesis syndrome Patient is a 28-year-old male with past medical history of cannabinoid hyperemesis syndrome and alcohol use disorder who presented to the ED on 06/11/2024 with abdominal pain, nausea, and vomiting after smoking marijuana and had a sepsis alert initiated in ED for leukocytosis, tachycardia, and tachypneia. He was subsequently admitted for observation for exacerbation of cannabinoid hyperemesis syndrome. Patient met SIRS criteria however this was likely reactive and less likely to be infectious given the patient's history, examination, and workup. While WBC was higher than previous visits at 32.8, there was no finding to suggest a sepsis source. Physical exam showed nontender soft abdomen. CT chest/abdomen/pelvis with contrast did not show any pathology. General surgery Dr. Talbot was consulted from the ED and was not concerned for any acute abdomen or infectious etiology. Patient was thus admitted for observation and symptomatic management. Patient was given IV fluids and antiemetics. He clinically improved and was stable to be discharged the next day. He was instructed to abstain from marijuana and alcohol. Discharge Recommendations: -Follow up with your PCP within 1 week of discharge -Stop smoking marijuana or your symptoms will keep returning -Drink plenty of fluids, try to aim for 2 liters or 4 standard size water bottles daily -Abstain from all alcohol Hospital Diagnoses: #Intractable nausea and vomiting #Generalized abdominal pain #Cannabinoid hyperemesis syndrome #SIRS without sepsis #Leukocytosis #Lactic acidosis, resolving #Alcohol use disorder Patient plan of care was discussed with the attending physician, Dr. Reynolds. Rachel Lewis, PGY-2 Time Spent with Patient Time attestation: Total time spent providing and/or coordinating discharge services: Exam Vital Signs Temp Pulse Resp BP Pulse Ox O2 Del Method 97.3 F 86 17 129/87 H 95 Room Air 06/12/24 08:00 06/12/24 08:00 06/12/24 08:00 06/12/24 08:00 06/12/24 08:00 06/12/24 08:00 Narrative Exam Physical Exam General: Awake and in no acute distress, conversational. HEENT: Normocephalic, atraumatic, mucous membranes moist. Heart: Regular rate and rhythm, no murmurs. Lungs: Clear to auscultation with no wheezing or crackles. Abdomen: Soft, nondistended, nontender, positive bowel sounds. ?No guarding or rebound tenderness. Neurologic: Alert and oriented x3, no gross neurological deficit, and patient able to move all 4 extremities. Extremities: No edema. Skin: No rash or ecchymoses. Discharge Plan Plan Patient Disposition: HOME (Self Care) Patient condition on transfer: Stable Care Plan Goals: Discharge Recommendations: -Follow up with your PCP within 1 week of discharge -Stop smoking marijuana or your symptoms will keep returning -Drink plenty of fluids, try to aim for 2 liters or 4 standard size water bottles daily -Abstain from all alcohol Prescriptions/Referrals Prescriptions/Med Rec: No Action No Known Home Medications Referrals: Nadir Khoury MD [Primary Care Provider] - Patient/Caregiver Discharge Instructions Discharge Activity: activity as tolerated Other Discharge Diet Instructions: Please continue hydration with Pedialyte and or Gatorade. Avoid greasy or fatty foods or anything spicy for the next 24 to 48 hours. Education Materials: Cannabinoid Hyperemesis Syndrome, Alcoholism Resources, Alcoholism: Getting Help, Understanding Marijuana Abuse, ED Gastritis (Adult), ED Marijuana Abuse Print Language: Khmer Stand Alone Forms: Jenn Award Info., Patient Portal Info Letter, Work/Release Restrictions Discharge Order Discharge Orders: Discharge (Routine); Ordered 06/12/24 Ordered By: Rachel Lewis Quality Discharge Quality Measures VTE prophylaxis Attestestation MD Attestation I reviewed labs, imaging, EKG, home medications and prior available records. Face to face evaluation was performed by me. I have personally examined the patient and discussed assessment and plan with the IM team. I reviewed the resident note and agree with the plan with exceptions as below. Intractable nausea and vomiting, improved Dehydration Marijuana abuse Alcohol abuse Leukocytosis, downtrending Lactic acidosis, resolved Encourage oral hydration Trend lactic acid: Downtrending Counseled the patient regarding the importance of avoiding marijuana and alcohol Time spent is 40 minutes. More than 50% of the time was spent on patient education and coordination of care.
[2024-06-12 12:00] VITALS: BP 134/92; PULSE 90; RESP 18; TEMP 36.2; O2SAT 94
== END 2024-06-12 13:41 | disposition home or self-care (01) ==
LOC: SERX 16:27 → SERHOLD 17:31 → S3SX 06-12 06:15
PROVIDERS: Student in an Organized Health Care Education/Training Program; Admitting Provider Student in an Organized Health Care Education/Training Program; Emergency Provider Emergency Medicine; PCP Family Medicine; Visit Provider Student in an Organized Health Care Education/Training Program
DX: F12.188 Cannabis abuse with other cannabis-induced disorder (principal); E86.0 Dehydration; E87.20 Acidosis, unspecified; F12.11 Cannabis abuse, in remission; F17.200 Nicotine dependence, unspecified, uncomplicated; K76.0 Fatty (change of) liver, not elsewhere classified; Z90.49 Acquired absence of other specified parts of digestive tract; Z83.3 Family history of diabetes mellitus; Z82.49 Family history of ischemic heart disease and other diseases of the circulatory system; R65.10 Systemic inflammatory response syndrome (SIRS) of non-infectious origin without acute organ dysfunction; F10.90 Alcohol use, unspecified, uncomplicated
CPT/HCPCS: 36415; 71260; 74177; 80048; 80053; 80307; 81001; 83605; 83615; 83690; 83735; 83880; 84100; 84145; 84484; 85025; 85610; 85730; 87040; 87086; 93005; 96361; 96365; 96372; 96375; 99285; A4649; G0378; J0696; J1630; J1650; J2060; J2405; J2470; J2543; J3490; J7030; J7040; J7050; J7120; Q9967; A9270

== ENCOUNTER 2024-08-05 14:55 | Emergency (ER) | payer MEDICAID, SELFPAY ==
[2024-08-05 15:02] VITALS: BP 148/79; PULSE 145; RESP 18; TEMP 36.9; O2SAT 97
--- NOTE | 2024-08-05 15:14 | EKG_ITS ---
[facility] Test Date: 2024-08-05 Pat Name: NGHIA WADDELL Department: Room: - Gender: Male [employer]er: : [id number] Requested By: Bruce Sapp Order Number: [id number] Reading MD: Bruce Sapp Measurements Intervals [place] Rate: 133 P: 71 ME: 133 QRS: 69 QRSD: 74 T: 48 QT: 280 QTc: 417 Interpretive Statements SINUS TACHYCARDIA ABNORMAL RHYTHM ECG Compared to ECG 06/11/2024 09:58:33 Sinus rhythm no longer present Sinus arrhythmia no longer present /store/S0/[id number].pdf
--- NOTE | 2024-08-05 15:19 | PD.EDADULT ---
ED General RME/HPI General Chief complaint: Abdominal Pain Stated complaint: ABD PAIN Time Seen by Provider: 08/05/24 16:19 Arrival date/time: 08/05/24 14:55 RME / HPI RME / HPI narrative: This patient is a 28-year-old male with past medical history of recurrent intractable abdominal pain due to history of marijuana use, alcohol use disorder, chronic gastritis presented to the ED with intractable abdominal pain associated with vomiting x 5 episodes. Patient stated that his pain started this morning excruciating constant crushing in nature rated as 10/10 radiating to the back and associated with vomiting almost 5 times. Vomitus consisted of food particles without blood. He denied having bloody stool and has been passing gas. He reported that he drinks alcohol moderately around 5 packs of alcohol unspecified type of alcohol every day. Last drink of alcohol was yesterday. Denies any fever, chest pain, shortness of breath, dysuria or any other complaint. Patient appears agitated and unable to lie comfortably on the bed. He appears restless with abdominal pain and is moaning in severity. PMH: Alcohol use disorder and Hx of cannabinoid hyperemesis syndrome FH: Type 2 diabetes in mother, positive for family cardiac disease PSH: Cholecystectomy, ankle surgery s/p repair, rhinoplasty SH: Quit smoking marijuana. Drinks alcohol moderately, usually drinks 4 packs of alcohol every day. Last drink was yesterday. Denies recreational drug use Allergies: NKDA Home medications none Vitals showed blood pressure 148/79, heart rate 145, respiratory rate 18 and afebrile. Patient was saturating well on room air. EKG showed sinus tachycardia with QTc 417.CBC showed leukocytosis white count 16.4, hemoglobin 14.5, platelet count 357. Blood alcohol levels Differentials include intractable abdominal pain likely due to gastritis, alcohol intoxication, alcohol withdrawal,? Pancreatitis Patient was given famotidine 20 mg IV x 1, folic acid 1 mg x 1, and all bolus 1 L x 1, Ativan 2 mg IV x 1, magnesium sulfate 2, morphine, Zofran 4 mg x 1 and thiamine 100 mg x 1. MD complaint: intractable abdominal pain Onset (ago): day(s) (1) Location: abdomen Radiation: back and abdomen Severity: severe Quality: crushing and constant Consistency: constant Exacerbating factors: movement Associated symptoms: loss of appetite, malaise and nausea/vomiting Related Data Previous Rx's ?Medication ?Instructions ?Recorded folic acid 1 mg tablet 1 mg PO QDAY #30 tabs 08/05/24 thiamine HCl (vitamin B1) 100 mg 100 mg PO QDAY #30 caps 08/05/24 capsule Allergies Allergy/AdvReac Type Severity Reaction Status Date / Time No Known Allergies Allergy Verified 03/05/24 09:01 Review of Systems Review of Systems Systems Reviewed: All systems reviewed, normal except as documented Past Medical History Past Medical History CARDIAC: Negative Cardiac Disorders RESPIRATORY: Negative Asthma GASTROINTESTINAL: Negative Gastrointestinal Disorders or Gastroesophageal Reflux Disease GENITOURINARY: Negative Genitourinary Disorders or Renal Disease PSYCHO/SOCIAL: Positive Recreational Drug Use, Depression and Anxiety OTHER HISTORY: Positive Hospitalization Family History FAMILY HISTORY: Positive Family Cardiac Disorders; Negative Family Psychiatric Problems, Family Respiratory Disorders, Family Gastrointestinal Problems, Family Cancer, Family Surgery or Family Anesthesia Reaction Surgical History SURGICAL: Negative Cardiac Surgery, Endocrine Surgery, Ear Surgery or Neurologic Surgery Social History SMOKING STATUS: Current every day smoker SUBSTANCE USE: marijuana ALCOHOL: Never Past Medical History Comments PMH COMMENT: Cannabis hyperemesis syndrome ED Exam Narrative Physical exam: GENERAL APPEARANCE: AxOx4,young male in acute distres due to abdominal pain HEENT: NC, AT. dry mucus membrane. EOMI, clear conjunctiva, oropharynx clear. NECK: Supple without lymphadenopathy. No stiffness or restricted ROM. HEART: sinus tacy with regular rhythm, normal S1/S2, no m/r/g LUNGS: CTAB, moving air well. No crackles or wheezes are heard. ABDOMEN: Soft, epigastric tenderness , nondistended with good bowel sounds heard. BACK: No CVAT, no obvious deformity. EXTREMITIES: Without cyanosis, clubbing or edema. NEUROLOGICAL: Grossly nonfocal. Alert and oriented, moving all 4 extremities. CN not formally tested but appear grossly intact. Observed to ambulate with normal gait. Skin: Warm and dry without any rash. Pscyh: anxious with appropriate mood and affect Course Course Course Narrative: This patient is a 28-year-old male with past medical history of recurrent intractable abdominal pain due to history of marijuana use, alcohol use disorder, chronic gastritis presented to the ED with intractable abdominal pain associated with vomiting x 5 episodes. Patient stated that his pain started this morning excruciating constant crushing in nature rated as 10/10 radiating to the back and associated with vomiting almost 5 times. Vomitus consisted of food particles without blood. He denied having bloody stool and has been passing gas. He reported that he drinks alcohol moderately around 5 packs of alcohol unspecified type of alcohol every day. Last drink of alcohol was yesterday. Denies any fever, chest pain, shortness of breath, dysuria or any other complaint. Vitals showed blood pressure 148/79, heart rate 145, respiratory rate 18 and afebrile. Patient was saturating well on room air. CBC showed leukocytosis white count 16.4, hemoglobin 14.5, platelet count 357. Blood alcohol levels Differentials include intractable abdominal pain likely due to gastritis, alcohol intoxication, acute psychosis,? Pancreatitis Patient was given famotidine 20 mg IV x 1, folic acid 1 mg x 1, and all bolus 1 L x 1, Ativan 2 mg IV x 1, magnesium sulfate 2, morphine, Zofran 4 mg x 1 and thiamine 100 mg x 1. 17:00 Revaluated patient. He received his medications and needed awaiting CT abdominal pelvis results. EtOH levels 136.9. Chemistry panel showed sodium 148, potassium 3.7, CL 114. Kidney functions showed BUN 7 and creatinine 0.9 with GFR 60. Lactic acid 2.0. Mildly elevated transaminases AST 56 and ALT 51. Troponin I was negative. We gave IM Haldol 5 mg x 1 as it is most likely related to behavioral problem/disorder and already running bolus of fluid due to hypernatermia.free water defecit is around 0.8L. Serum lipase was negative. 18:00 Discussed case with ED Physician regarding observation for few hours as it is most likely behavioral disorder and follow up with CT abdomen/pelvis. Discussed patient's ED course, exam findings, labs. Quality Measures none Orders Category Date Time Status CT Screening NOW Care 08/05/24 15:45 Active EKG (ED ONLY) *Do not use* NOW Care 08/05/24 15:15 Completed NPO NOW Care 08/05/24 15:58 Active Diet NPO (NOW) Diet 08/05/24 15:[address] abdomen pelvis w con Stat Exams 08/05/24 15:45 Taken EKG (ED Only) Stat Exams 08/05/24 15:14 Draft Alcohol, Blood Medical Stat Lab 08/05/24 16:22 Completed CBC Stat Lab 08/05/24 16:22 Completed CMP [Comprehensive Metabolic Panel] Stat Lab 08/05/24 16:22 Completed Drug Screen,Urine Stat Lab 08/05/24 15:17 Ordered Lactate (Lactic Acid) Stat Lab 08/05/24 16:22 Completed Lipase Stat Lab 08/05/24 16:22 Completed Mag [Magnesium] Stat Lab 08/05/24 16:22 Completed Phosphorous Stat Lab 08/05/24 16:22 Completed Troponin I Stat Lab 08/05/24 16:22 Completed Urinalysis Stat Lab 08/05/24 15:17 Ordered Famotidine Inj [Pepcid Inj] Med 08/05/24 15:13 Discontinued 20 mg IVP X1 ONE Folic Acid Inj Med 08/05/24 15:13 Discontinued 1 mg IVP X1 ONE Haloperidol Lactate [Haldol Inj] Med 08/05/24 17:18 Discontinued 5 mg IM X1 ONE LORazepam [Ativan Inj] Med 08/05/24 15:12 Discontinued 2 mg IVP X1 ONE Magnesium Sulfate 2 GM Ivpb [Magnesium Sulfate Ivpb] Med 08/05/24 15:16 Discontinued 2 gm in 50 ml IV X1 Morphine Inj Med 08/05/24 15:12 Discontinued 1 mg IVP X1 ONE Ondansetron Inj [Zofran Inj] Med 08/05/24 15:13 Discontinued 4 mg IV X1 ONE Pantoprazole Inj [Protonix Inj] Med 08/05/24 16:07 Discontinued 40 mg IV X1 ONE Ringers Lactated 1000 ml [Lactated Ringers] 1,000 ml Med 08/05/24 16:40 Discontinued IV 999 mls/hr Ringers Lactated 500 ml [Lactated Ringers] 500 ml Med 08/05/24 15:13 Discontinued IV 999 mls/hr Thiamine Inj [Vitamin B-1 Inj] Med 08/05/24 15:30 Discontinued 100 mg IVP X1 ONE Vital Signs Vital signs: Vital Signs Temperature 98.5 F 08/05/24 15:02 Pulse Rate 145 H 08/05/24 15:02 Respiratory Rate 18 08/05/24 15:02 Blood Pressure 148/79 H 08/05/24 15:02 Pulse Oximetry (%) 97 08/05/24 15:02 Oxygen Delivery Method Room Air 08/05/24 15:02 Discharge Plan Prescriptions/Referrals Prescriptions/Med Rec: New folic acid 1 mg tablet 1 mg PO QDAY Qty: 30 0RF thiamine HCl (vitamin B1) 100 mg capsule 100 mg PO QDAY Qty: 30 0RF Problem List Clinical Impression: Intractable abdominal pain, Alcohol intoxication, Behavioral disorder Patient/Caregiver Discharge Instructions Print Language: Bel[place]ian MDM Narrative MDM hospital course (for use when minimal MDM required): This patient is a 28-year-old male with past medical history of recurrent intractable abdominal pain due to history of marijuana use, alcohol use disorder, chronic gastritis presented to the ED with intractable abdominal pain associated with vomiting x 5 episodes. Patient stated that his pain started this morning excruciating constant crushing in nature rated as 10/10 radiating to the back and associated with vomiting almost 5 times. Vomitus consisted of food particles without blood. He denied having bloody stool and has been passing gas. He reported that he drinks alcohol moderately around 5 packs of alcohol unspecified type of alcohol every day. Last drink of alcohol was yesterday. Denies any fever, chest pain, shortness of breath, dysuria or any other complaint. Vitals showed blood pressure 148/79, heart rate 145, respiratory rate 18 and afebrile. Patient was saturating well on room air. CBC showed leukocytosis white count 16.4, hemoglobin 14.5, platelet count 357. Blood alcohol levels Differentials include intractable abdominal pain likely due to gastritis, alcohol intoxication, acute psychosis,? Pancreatitis Patient was given famotidine 20 mg IV x 1, folic acid 1 mg x 1, and all bolus 1 L x 1, Ativan 2 mg IV x 1, magnesium sulfate 2, morphine, Zofran 4 mg x 1 and thiamine 100 mg x 1. 17:00 Revaluated patient. He received his medications and needed awaiting CT abdominal pelvis results. EtOH levels 136.9. Chemistry panel showed sodium 148, potassium 3.7, CL 114. Kidney functions showed BUN 7 and creatinine 0.9 with GFR 60. Lactic acid 2.0. Mildly elevated transaminases AST 56 and ALT 51. Troponin I was negative. We gave IM Haldol 5 mg x 1 as it is most likely related to behavioral problem/disorder and already running bolus of fluid due to hypernatermia.free water defecit is around 0.8L. 18:00 Discussed case with ED Physician regarding observation for few hours as it is most likely behavioral disorder and follow up with CT abdomen/pelvis. Discussed patient's ED course, exam findings, labs. Medication Administration(s) Medication Administration History Discontinued Medications Famotidine (Famotidine Inj 10 Mg/Ml Vial 2 Ml) 20 mg IVP X1 ONE Stop: 08/05/24 15:14 Last Admin: 08/05/24 16:41 Dose: 20 mg Documented By: LF Folic Acid (Folic Acid Inj 1 Mg/0.2 Ml) 1 mg IVP X1 ONE Stop: 08/05/24 15:14 Last Admin: 08/05/24 16:44 Dose: 1 mg Documented By: LF Haloperidol Lactate (Haloperidol Lact Inj 5 Mg/Ml Vial) 5 mg IM X1 ONE Stop: 08/05/24 17:19 Last Admin: 08/05/24 17:31 Dose: 5 mg Documented By: LF Lactated Ringer's (Lactated Ringers) 500 mls @ 999 mls/hr IV .Q31M ONE Stop: 08/05/24 15:43 Last Admin: 08/05/24 17:36 Dose: Not Given Documented By: LF Non-Admin Reason: Discontinued Magnesium Sulfate (Magnesium Sulfate Ivpb) 2 gm in 50 mls @ 25 mls/hr IV X1 ONE Stop: 08/05/24 17:15 Last Admin: 08/05/24 17:26 Dose: 25 mls/hr Documented By: LF Lactated Ringer's (Lactated Ringers) 1,000 mls @ 999 mls/hr IV .Q1H1M ONE Stop: 08/05/24 17:40 Last Admin: 08/05/24 16:46 Dose: 999 mls/hr Documented By: LF Lorazepam (Lorazepam 2 Mg/Ml Vial) 2 mg IVP X1 ONE Stop: 08/05/24 15:13 Last Admin: 08/05/24 16:45 Dose: 2 mg Documented By: LF Morphine Sulfate (Morphine Sulf Inj 10 Mg/Ml Vial) 1 mg IVP X1 ONE Stop: 08/05/24 15:13 Last Admin: 08/05/24 17:05 Dose: Not Given Documented By: LF Non-Admin Reason: Patient Asleep Ondansetron HCl (Ondansetron Inj 2 Mg/Ml Inj 2 Ml) 4 mg IV X1 ONE; Protocol Stop: 08/05/24 15:14 Last Admin: 08/05/24 16:42 Dose: 4 mg Documented By: LF Pantoprazole Sodium (Pantoprazole Inj 40 Mg Vial) 40 mg IV X1 ONE Stop: 08/05/24 16:08 Last Admin: 08/05/24 16:40 Dose: 40 mg Documented By: LF Thiamine HCl (Thiamine Inj 100 Mg/Ml Vial 2 Ml) 100 mg IVP X1 ONE Stop: 08/05/24 15:31 Last Admin: 08/05/24 16:43 Dose: 100 mg Documented By: LF
--- NOTE | 2024-08-05 15:45 | XR_ITS ---
Examination: CT abdomen with intravenous contrast CT pelvis with intravenous contrast 2-D coronal reconstructions 2-D sagittal reconstructions Date and time of exam:August 05, 2024 7005 hours COMPARISON: January 06, 2024 INDICATIONS: Acute intractable abdominal pain today. CTDI: vol (mGy) 8.1 DLP: (mGycm) 437 Technique: Multiple axial sections of the abdomen and pelvis have been obtained. 64 slice high-resolution scanner used. 3 mm axial sections have been obtained, post intravenous injection of 60 cc Isovue 370 2-D sagittal, coronal reconstructions obtained. Low dose protocols were performed. One or more of the following dose reduction techniques were used; automated exposure control, adjustment of the mA and/or KV according to patient size, use of iterative reconstruction technique. Findings: No focal liver or splenic lesion No gallstones Suspicious for early edema around the pancreas, no pseudocyst No renal or ureteral calculi, no hydronephrosis No pericecal inflammatory change No bowel obstruction Tiny fat-containing inguinal hernia No diverticulitis Urinary bladder intact No prostatomegaly IMPRESSION: Suspicious for early acute pancreatitis
[2024-08-05] MEDS: PANTOPRAZOLE INJ 40 MG VIAL IV (16:40)
[2024-08-05 16:41] LABS: Basophils # (Auto) 0.1 Thou/mm3 (0.0-0.2); Basophils % (Auto) 0 % (0-2.5); Eosinophils % (Auto) 0 % (0-10); Hematocrit 39.9 % (41.0-53.0); Hemoglobin 14.5 g/dL (13.5-16.0); Immature Granulocytes % (Auto) 0 % (0-0); Immature Granulocytes Auto 0.05 Thou/mm3 (0.00-0.00); Lymphocytes # (Auto) 0.7 Thou/mm3 (1.0-4.8); Lymphocytes % (Auto) 4 % (10-50); Mean Corpuscular HGB Conc 36.3 g/dl (31.0-37.0); Mean Corpuscular Hemoglobin 31.3 pg (25.0-35.0); Mean Corpuscular Volume 86 fL (80-100); Monocytes # (Auto) 0.7 Thou/mm3 (0.0-0.8); Monocytes % (Auto) 4 % (0-12); Neutrophils # (Auto) 14.9 Thou/mm3 (1.8-7.7); Neutrophils % (Auto) 91 % (37-80); Nucleated Red Blood Cell % 0 /100 WBC (0); Platelet Count 357 Thou/mm3 (140-440); RDW Standard Deviation 42.6 fL (35.1-43.9); Red Blood Count 4.63 Miln/mm3 (4.50-5.90); White Blood Count 16.4 Thou/mm3 (3.8-10.6)
[2024-08-05] MEDS: FAMOTIDINE INJ 10 MG/ML VIAL 2 ML 20 MG IVP (16:41)
[2024-08-05] MEDS: ONDANSETRON INJ 2 MG/ML INJ 2 ML 4 MG IV (16:42)
[2024-08-05] MEDS: THIAMINE INJ 100 MG/ML VIAL 2 ML IVP (16:43)
[2024-08-05] MEDS: FOLIC ACID INJ 1 MG/0.2 ML IVP (16:44)
[2024-08-05] MEDS: LORazepam 2 MG/ML VIAL IVP (16:45)
[2024-08-05] MEDS: RINGERS LACTATED 1000 ML 1,000 ML 999 ML IV (16:46)
[2024-08-05 17:08] LABS: Alanine Aminotransferase 51 U/L (10-49); Albumin, Serum 4.9 gm/dL (3.5-5.0); Albumin/Globulin Ratio 1.9 (1.2-2.2); Alcohol, Blood Medical 136.9 mg/dL (0-10.0); Alkaline Phosphatase 71 U/L (46-116); Anion Gap 12 (7-16); Aspartate Amino Transferase 56 U/L (0-34); BUN/Creatinine Ratio 8 Ratio (12-20); Bilirubin,Total 0.4 mg/dL (0.3-1.2); Blood Urea Nitrogen 7 mg/dL (9-23); Calcium 8.7 mg/dL (8.3-10.6); Calcium (Corrected) 8.7 mg/dL (8.5-10.1); Carbon Dioxide 21.7 mMol/L (20.0-31.0); Chloride 114 mMol/L (98-107); Creatinine (Component) 0.9 mg/dL (0.6-1.3); Globulin 2.6 gm/dL (2.3-3.5); Glucose 145 mg/dL (74-106); Lipase 32 U/L (12-53); Magnesium 2.1 mg/dL (1.6-2.6); Osmolality,Calculated 295 (275-295); Phosphorous 3.8 mg/dL (2.4-5.1); Potassium 3.7 mMol/L (3.4-5.1); Sodium 148 mMol/L (136-145); Total Protein 7.5 gm/dL (5.7-8.2); Troponin I < 0.002 ng/mL (0.0-0.045); eGFR > 60 See Note
[2024-08-05] MEDS: Magnesium Sulfate 2 GM Ivpb 2 GM/50 ML BAG IV (17:26)
[2024-08-05] MEDS: HALOPERIDOL LACT INJ 5 MG/ML VIAL IM (17:31)
[2024-08-05 17:42] VITALS: BP 117/66; PULSE 125; RESP 20; TEMP 36.7; O2SAT 97
--- NOTE | 2024-08-05 18:29 | PD.EDADDENDU ---
Emergency Room Addendum <Johanny Pineda - Last Filed: 08/05/24 22:12> Addendum Narrative: I took over the care from previous shift physician at 1800 on 08/05/2024. See previous notes for complete H & P and ED course. I reviewed all diagnostic test results. My interpretation of the EKG is My review of the Abdomen/Pelvis CT report is Suspicious for early acute pancreatitis. Blood tests and urine tests Diagnoses include: Treatment here included Not yet done: I discussed the case with our hospitalist. About the presentation and exam and diagnostics and treatments here. And need of further care in the hospital. Will accept the patient. Not yet done: Based on my best medical judgment, made decision no further evaluation or treatment indicated at this time. Patient understands and agrees to the discharge instructions customized and printed, see below. Carlton Anderson MD <Carlton Anderson MD - Last Filed: 08/05/24 22:15> Addendum Narrative: I took over the care from previous shift physician at 1800 on 08/05/2024. See previous notes for complete H & P and ED course. I reviewed all pending diagnostic test results. My review of the Abdomen/Pelvis CT report is: Suspicious for early acute pancreatitis. Diagnoses include: Alcohol intoxication and early pancreatitis. Treatment here included IV fluid. Patient returned to baseline. Based on my best medical judgment, made decision no further evaluation or treatment indicated at this time. Patient understands and agrees to the discharge instructions customized and printed, see below. Discharge Instructions from Dr. Anderson printed for you: 1.? After evaluation, your symptoms are due to alcohol intoxication and possible mild pancreatitis shown on abdominal CT scan. 2.? See attached handouts. 3.? Zofran for nausea/vomiting.? Tylenol with codeine for severe pain. 4.? Absolutely no alcohol.? Severe pancreatitis eventually can be fatal. No drugs. 5.? Clear liquid diet for 24 hours and advance slowly as tolerated. 6.? See a private doctor on 08/07/2024 for recheck and further care. Ask to review all test results and official radiology reports, to make sure you receive all necessary follow-ups and monitoring. Ask for help until you are completely better 7.? Seek immediate medical care with worsening or with any concerns. Carlton Anderson MD
[2024-08-05 21:32] VITALS: BP 118/71; PULSE 74; RESP 18; TEMP 37.1; O2SAT 99
== END 2024-08-05 23:20 | disposition home or self-care (01) ==
PROVIDERS: Student in an Organized Health Care Education/Training Program; Emergency Provider Emergency Medicine
DX: F10.929 Alcohol use, unspecified with intoxication, unspecified (principal); K85.90 Acute pancreatitis without necrosis or infection, unspecified; F91.9 Conduct disorder, unspecified; R00.0 Tachycardia, unspecified
CPT/HCPCS: 36415; 74177; 80053; 80307; 80320; 81001; 83605; 83690; 83735; 84100; 84484; 85025; 93005; 96361; 96365; 96366; 96375; 99285; A4649; J1630; J2060; J2405; J2470; J3411; J3475; J3490; J7120; Q9967; G0480

== ENCOUNTER 2024-11-03 12:56 | Emergency (ER) | payer MEDICAID, SELFPAY ==
[2024-11-03 12:58] VITALS: PULSE 102; O2SAT 96; BMI 25.0
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
[2024-11-03 13:05] VITALS: BP 130/88; PULSE 123; RESP 12; TEMP 36.8; O2SAT 96
--- NOTE | 2024-11-03 13:06 | PC.NURSE ---
YAZ ACEVEDO SPEAKING WITH PATIENT OBTAINING REPORT INFORMATION.
[2024-11-03] MEDS: ACETAMINOPHEN 500 MG TABLET 1000 MG PO (13:20)
--- NOTE | 2024-11-03 15:29 | PC.NURSE ---
called for pt from lobby/outside, no answerx1@[id number]
--- NOTE | 2024-11-03 15:50 | PC.NURSE ---
called for pt from lobby/outside, no answer x2@ [phone]
--- NOTE | 2024-11-03 16:55 | PC.NURSE ---
CALLED FOR PT from lobby/outside, no answerx3@[phone]
== END 2024-11-03 16:55 | disposition left against medical advice (07) ==
PROVIDERS: Emergency Provider Emergency Medicine; PCP Family Medicine
DX: S00.93XA Contusion of unspecified part of head, initial encounter (principal); S10.93XA Contusion of unspecified part of neck, initial encounter; S20.219A Contusion of unspecified front wall of thorax, initial encounter; S30.1XXA Contusion of abdominal wall, initial encounter; V89.9XXA Person injured in unspecified vehicle accident, initial encounter
CPT/HCPCS: 70450; 71250; 72125; 74176; 99283; A9270

== ENCOUNTER 2024-11-26 20:16 | Emergency (ER) | payer MEDICAID, SELFPAY ==
[2024-11-26 20:17] VITALS: PULSE 125; RESP 22; O2SAT 98
[2024-11-26 20:20] VITALS: BMI 27.3
[2024-11-26 20:26] VITALS: BP 156/109; PULSE 120; RESP 18; TEMP 37; O2SAT 97
--- NOTE | 2024-11-26 20:27 | PD.EDABDPN ---
ED Abdominal Pain RME/HPI General Chief Complaint: Abdominal Pain Stated complaint: ABDOMINAL PAIN Time seen by provider: 11/26/24 20:24 Arrival date/time: 11/26/24 20:16 RME / HPI RME / HPI narrative: DR. GÓMEZ MAIN ED EVALUATION: 29 y/o male with SHx of Cholecystectomy and Hx of Marijuana and Alcohol use BIBA from home presents to ED c/o severe epigastric abdominal pain x 2 days, but worse today. Patient admits to continuing marijuana use, but states he is trying to quit. Last consumed alcohol 6 days ago. No other concerns or complaints expressed at this time. Related Data Previous Rx's ?Medication ?Instructions ?Recorded acetaminophen 300 mg-codeine 30 mg 2 tab PO Q8H PRN pain #20 tabs 08/05/24 tablet folic acid 1 mg tablet 1 mg PO QDAY #30 tabs 08/05/24 thiamine HCl (vitamin B1) 100 mg 100 mg PO QDAY #30 caps 08/05/24 capsule benztropine 1 mg tablet 1 mg PO BID #14 tabs 11/26/24 metoclopramide HCl 10 mg tablet 10 mg PO Q6H PRN nausea and 11/26/24 (Reglan) vomiting #20 tabs Allergies Allergy/AdvReac Type Severity Reaction Status Date / Time No Known Allergies Allergy Verified 11/03/24 13:02 Review of Systems Review of Systems Systems Reviewed: All systems reviewed, normal except as documented Past Medical History Past Medical History MUSCULOSKELETAL: Positive Fractures PSYCHO/SOCIAL: Positive Recreational Drug Use, Depression and Anxiety OTHER HISTORY: Positive Hospitalization Family History FAMILY HISTORY: Positive Family Cardiac Disorders Social History SUBSTANCE USE: marijuana ALCOHOL: Current ALCOHOL FREQUENCY: 0-2 Drinks per Day ALCOHOL LAST INTAKE: Days (ago) (6) ED Exam Narrative Physical exam: Generally patient is alert and in moderate distress secondary to his epigastric abdominal pain. Heart regular rate and rhythm, lungs clear to auscultation bilaterally, abdomen soft bowel sounds present nondistended epigastric abdominal tenderness without rebound, skin is cool pale and slightly moist, neurologic exam [place] Coma Scale is 15 without focal motor deficits Course Quality Measures none Orders Category Date Time Status Alcohol, Blood Medical Stat Lab 11/26/24 20:49 Completed CBC Stat Lab 11/26/24 20:49 Completed CMP [Comprehensive Metabolic Panel] Stat Lab 11/26/24 20:49 Completed Drug Screen,Urine Stat Lab 11/26/24 20:29 Ordered Lipase Stat Lab 11/26/24 20:49 Completed DiphenhydrAMINE INJ [Benadryl Inj] Med 11/26/24 21:53 Discontinued 50 mg .ROUTE .STK-MED ONE Haloperidol Lactate [Haldol Inj] Med 11/26/24 20:28 Active 10 mg IV Q6HR PRN Metoclopramide Inj [Reglan Inj] Med 11/26/24 20:28 Discontinued 10 mg IVP X1 ONE Sodium Chloride 0.9% 1000 ml [Ns] 1,000 ml Med 11/26/24 20:31 Discontinued IV 999 mls/hr Vital Signs Vital signs: Vital Signs Temperature 98.6 F 11/26/24 20:26 Pulse Rate 120 H 11/26/24 20:26 Respiratory Rate 18 11/26/24 20:26 Blood Pressure 156/109 H 11/26/24 20:26 Pulse Oximetry (%) 97 11/26/24 20:26 Oxygen Delivery Method Room Air 11/26/24 20:26 Abdominal Pain MDM MDM Narrative MDM Narrative:: Scribe Attestation: I, Johanny Pineda, am scribing for and in the presence of Dr. Gómez. Provider Notation: Although this document has been carefully reviewed, there may still be some phonetic and other typographical errors. These errors are purely grammatical due to imperfections in the software program and should not be construed in any way to compromise the substance of the patient's medical care during this visit. Patient has a history of cannabinoid hyperemesis syndrome. He continues to smoke marijuana. He is not drink alcohol for 6 days. Lipase is not elevated. Alcohol level is less than 30. Patient was hydrated with a liter normal saline. For the cannabinol aid induced hyperemesis the patient received Reglan 10 mg IV and Haldol 10 mg IV with benefit. He got somewhat agitated so he received Benadryl 50 mg IV with marked benefit. This increased agitation most likely was a dystonic reaction from the Reglan. Patient is resting very comfortably at this time. I interpreted all labs. Patient will be discharged on Reglan and Cogentin to be taken as prescribed. The Cogentin is to guard against the extraparametal side effects of the Reglan. He is to stop the marijuana. Patient data External records reviewed:: [facility] previous records (Reviewed prior ED records from 11/03/24. Patient was seen for Contusion.) and EMS form Clinical information provided by:: patient and EMS Social determinants that could affect healthcare access:: substance use (Marijuana, Alcohol) Patient has the following chronic illnesses:: Recreational Drug Use, Depression and Anxiety How is presenting disease/condition affected by chronic disease/condition?: exacerbated by Evaluation data The following diagnostics were reviewed and interpreted by me:: lab results Lab and/or radiology exams considered but not ordered:: None Interpretation Summary: See MDM above. Medications / Prescriptions Medications or Prescriptions considered but not ordered:: None Medication administrations:: Medication Administration History Haloperidol Lactate (Haloperidol Lact Inj 5 Mg/Ml Vial) 10 mg IV Q6HR PRN PRN Reason: AGITATION (SEVERE) Stop: 12/01/24 20:27 Last Admin: 11/26/24 21:37 Dose: 10 mg Documented By: DAMARIS Discontinued Medications Diphenhydramine HCl (Diphenhydramine Inj 50 Mg/Ml Vial) Confirm Administered Dose 50 mg .ROUTE .STK-MED ONE Stop: 11/26/24 21:54 Last Admin: 11/26/24 21:58 Dose: 50 mg Documented By: DAMARIS Comments: overrride for adverse reaction, VO Dr Gómez Sodium Chloride (Ns) 1,000 mls @ 999 mls/hr IV .Q1H1M ONE Stop: 11/26/24 21:31 Last Admin: 11/26/24 21:38 Dose: 999 mls/hr Documented By: DAMARIS Metoclopramide HCl (Metoclopramide Inj 5 Mg/Ml Vial 2 Ml) 10 mg IVP X1 ONE; Protocol Stop: 11/26/24 20:29 Last Admin: 11/26/24 21:25 Dose: 10 mg Documented By: DAMARIS See above if any. Consultations Consultation(s) initiated? (list below): No Diagnosis Differential diagnosis abdominal pain: abdominal pain, acute appendicitis, calculus of kidney, constipation, diverticulitis, gastroenteritis, pancreatitis and small bowel obstruction Most likely diagnosis given after review of the tests above:: Cannabinoid hyperemesis syndrome Admission Indicated Admission indicated?: not indicated Explain why admission is indicated or not indicated:: Patient does not meet admission criteria. Admission Request Was there a request for admission?: No Disposition Plan Disposition Plan: Discharge Discharge Attestation Discharge Attestation: The patient and all family members were given an opportunity to ask questions and understood the discharge instructions. Discharge instructions specifically effects, indications for sooner follow up or return to the emergency department, and the expected course of current diagnosis. Patient condition: Stable Critical Care Time Critical Care Time Critical Care Time: Yes Total Critical Care Time (min.): 35 Attestation: Excluding other billable procedures Discharge Plan Plan Patient Disposition: HOME (Self Care) Prescriptions/Referrals Prescriptions/Med Rec: New metoclopramide HCl [Reglan] 10 mg tablet 10 mg PO Q6H PRN (Reason: nausea and vomiting) Qty: 20 0RF benztropine 1 mg tablet 1 mg PO BID Qty: 14 0RF No Action folic acid 1 mg tablet 1 mg PO QDAY Qty: 30 0RF thiamine HCl (vitamin B1) 100 mg capsule 100 mg PO QDAY Qty: 30 0RF acetaminophen-codeine 300-30 mg tablet 2 tab PO Q8H MDD 6 PRN (Reason: pain) Qty: 20 0RF Referrals: Nadir Khoury MD [Primary Care Provider] - In 1 week Problem List Clinical Impression: Cannabinoid hyperemesis syndrome Patient/Caregiver Discharge Instructions Additional Instructions: Stop using marijuana. Reglan and Cogentin as prescribed. Return as needed. Print Language: Georgian Stand Alone Forms: Jenn Award Info., Patient Portal Info Letter
[2024-11-26 21:03] LABS: Basophils # (Auto) 0.1 Thou/mm3 (0.0-0.2); Basophils % (Auto) 1 % (0-2.5); Eosinophils # (Auto) 0.0 Thou/mm3 (0.0-0.5); Eosinophils % (Auto) 0 % (0-10); Hematocrit 42.0 % (41.0-53.0); Hemoglobin 14.9 g/dL (13.5-16.0); Immature Granulocytes Auto 0.03 Thou/mm3 (0.00-0.00); Lymphocytes # (Auto) 1.1 Thou/mm3 (1.0-4.8); Lymphocytes % (Auto) 9 % (10-50); Mean Corpuscular HGB Conc 35.5 g/dl (31.0-37.0); Mean Corpuscular Hemoglobin 32.3 pg (25.0-35.0); Mean Corpuscular Volume 91 fL (80-100); Monocytes # (Auto) 0.4 Thou/mm3 (0.0-0.8); Monocytes % (Auto) 4 % (0-12); Neutrophils # (Auto) 10.6 Thou/mm3 (1.8-7.7); Neutrophils % (Auto) 87 % (37-80); Nucleated Red Blood Cell # 0.00 Thou/mm3 (0.00-0.00); Nucleated Red Blood Cell % 0 /100 WBC (0); Platelet Count 323 Thou/mm3 (140-440); RDW Standard Deviation 44.0 fL (35.1-43.9); Red Blood Count 4.61 Miln/mm3 (4.50-5.90); White Blood Count 12.3 Thou/mm3 (3.8-10.6)
[2024-11-26 21:21] LABS: Alanine Aminotransferase 11 U/L (10-49); Albumin, Serum 4.6 gm/dL (3.5-5.0); Albumin/Globulin Ratio 1.9 (1.2-2.2); Alcohol, Blood Medical < 3.0 mg/dL (0-10.0); Alkaline Phosphatase 74 U/L (46-116); Anion Gap 12 (7-16); Aspartate Amino Transferase 21 U/L (0-34); BUN/Creatinine Ratio 11 Ratio (12-20); Bilirubin,Total 0.6 mg/dL (0.3-1.2); Blood Urea Nitrogen 10 mg/dL (9-23); Calcium 9.9 mg/dL (8.3-10.6); Calcium (Corrected) 9.9 mg/dL (8.5-10.1); Carbon Dioxide 24.2 mMol/L (20.0-31.0); Chloride 108 mMol/L (98-107); Creatinine (Component) 0.9 mg/dL (0.6-1.3); Estimated Creatinine Clearance 117.2 mL/min (>60); Globulin 2.4 gm/dL (2.3-3.5); Glucose 116 mg/dL (74-106); Lipase 24 U/L (12-53); Osmolality,Calculated 286 (275-295); Potassium 3.8 mMol/L (3.4-5.1); Sodium 144 mMol/L (136-145); Total Protein 7.0 gm/dL (5.7-8.2); eGFR > 60 See Note
[2024-11-26] MEDS: METOCLOPRAMIDE INJ 5 MG/ML VIAL 2 ML 10 MG IVP (21:25)
[2024-11-26] MEDS: HALOPERIDOL LACT INJ 5 MG/ML VIAL 10 MG IV (21:37)
[2024-11-26] MEDS: SODIUM CHLORIDE 0.9% 1000 ML 1,000 ML 999 ML IV (21:38)
[2024-11-27 00:44] VITALS: PULSE 86; RESP 20; TEMP 37.2; O2SAT 98
== END 2024-11-27 00:44 | disposition home or self-care (01) ==
PROVIDERS: Emergency Provider Emergency Medicine; PCP Family Medicine
DX: R11.2 Nausea with vomiting, unspecified (principal); F12.90 Cannabis use, unspecified, uncomplicated
CPT/HCPCS: 36415; 80053; 80307; 80320; 83690; 85025; 96374; 99283; J1200; J1630; J2765; J7030; G0480

== ENCOUNTER 2024-11-28 01:54 | Emergency (ER) | payer MEDICAID, SELFPAY ==
[2024-11-28 02:02] VITALS: BP 150/110; PULSE 113; RESP 24; TEMP 36.6; O2SAT 96; BMI 26.6
--- NOTE | 2024-11-28 02:03 | XR_ITS ---
Examination: CT abdomen and pelvis without contrast. Coronal 3-D reconstructions. Sagittal 2-D reconstructions. Date and time of exam:November 28, 2024 0358 hours, comparison November 03, 2024 INDICATIONS: Severe abdominal pain beginning last night CTDI: vol (mGy): 7.38 DLP: (mGycm): 428 Technique: Axial images of the abdomen have been obtained, 3 mm slice thickness Intravenous contrast material has not been administered. Low dose protocols were performed. One or more of the following dose reduction techniques were used; automated exposure control, adjustment of the mA and/or KV according to patient size, use of iterative reconstruction technique. Findings: No focal liver or splenic lesions Absent gallbladder No pancreatic or adrenal mass. No renal or ureteral calculi, no hydronephrosis Aorta normal size 15 mm fat-containing umbilical hernia. Normal appendix No bowel obstruction No diverticulitis Urinary bladder intact. No prostatomegaly IMPRESSION: No renal or ureteral calculi, no hydronephrosis Normal appendix No bowel obstruction or diverticulitis
--- NOTE | 2024-11-28 02:03 | XR_ITS ---
Examination: Abdomen sonogram, Limited Date and time of exam: November 28, 2024 0228 hours INDICATIONS: Onset epigastric pain this week Technique: Real-time nur scale transabdominal sonographic images of the upper abdomen obtained. Findings: Absent gallbladder Common bile duct 0.5 cm no stones Pancreatic head 2.9 cm Liver 16.4 cm no liver lesions Normal hepatopedal portal venous flow Patent IVC IMPRESSION: Absent gallbladder No common bile duct stones noted
--- NOTE | 2024-11-28 02:11 | PD.EDABDPN ---
ED Abdominal Pain RME/HPI General Chief Complaint: Abdominal Pain Stated complaint: Gastritis/Pain Time seen by provider: 11/28/24 02:01 Arrival date/time: 11/28/24 01:54 RME / HPI RME / HPI narrative: See [facility] for Dr. Anderson's HPI Documentation. Related Data Previous Rx's ?Medication ?Instructions ?Recorded acetaminophen 300 mg-codeine 30 mg 2 tab PO Q8H PRN pain #20 tabs 08/05/24 tablet folic acid 1 mg tablet 1 mg PO QDAY #30 tabs 08/05/24 thiamine HCl (vitamin B1) 100 mg 100 mg PO QDAY #30 caps 08/05/24 capsule benztropine 1 mg tablet 1 mg PO BID #14 tabs 11/26/24 metoclopramide HCl 10 mg tablet 10 mg PO Q6H PRN nausea and 11/26/24 (Reglan) vomiting #20 tabs famotidine 40 mg tablet 40 mg PO .bedtime #30 tabs 11/28/24 omeprazole 40 mg capsule,delayed 40 mg PO QDAY #30 caps 11/28/24 release ondansetron 4 mg disintegrating 4 mg PO TID PRN nausea and 11/28/24 tablet vomiting 30 days #10 tabs Allergies Allergy/AdvReac Type Severity Reaction Status Date / Time No Known Allergies Allergy Verified 11/03/24 13:02 Review of Systems Review of Systems Systems Reviewed: All systems reviewed, normal except as documented Past Medical History Past Medical History MUSCULOSKELETAL: Positive Fractures PSYCHO/SOCIAL: Positive Recreational Drug Use, Depression and Anxiety OTHER HISTORY: Positive Hospitalization Family History FAMILY HISTORY: Positive Family Cardiac Disorders Social History SMOKING STATUS: Former smoker SUBSTANCE USE: marijuana ED Exam Narrative Physical exam: See [facility] for Dr. Anderson's Physical Exam Documentation. Course Quality Measures none Orders Category Date Time Status MRI Screening NOW Care 11/28/24 05:16 Active Saline [Insert IV] NOW Care 11/28/24 02:03 Active Straight [In and Out Catheter] X1 Care 11/28/24 02:[address] abdomen pelvis wo con Stat Exams 11/28/24 02:03 Taken MR MRCP Stat Exams 11/28/24 Ordered US gall bladder Stat Exams 11/28/24 02:03 Taken Alcohol, Blood Medical Stat Lab 11/28/24 02:06 Completed Bilirubin,Direct Stat Lab 11/28/24 02:06 Completed CBC Stat Lab 11/28/24 02:06 Completed CMP [Comprehensive Metabolic Panel] Stat Lab 11/28/24 02:06 Completed CRP [C-Reactive Protein] Stat Lab 11/28/24 02:06 Completed Drug Screen,Urine Stat Lab 11/28/24 02:04 Ordered ESR [Sed Rate (ESR)] Stat Lab 11/28/24 02:06 Completed Lipase Stat Lab 11/28/24 02:06 Completed Magnesium Stat Lab 11/28/24 02:06 Completed Procalcitonin Stat Lab 11/28/24 02:06 Completed UA, C/S IF [Urinalysis, C/S if Indicated] Stat Lab 11/28/24 02:04 Ordered HYDROmorphone INJ [Dilaudid Inj] Med 11/28/24 04:08 Discontinued 1 mg IVP X1 ONE HYDROmorphone INJ [Dilaudid Inj] Med 11/28/24 02:03 Discontinued 2 mg IVP X1 ONE Ketorolac Inj [Toradol Inj] Med 11/28/24 04:08 Discontinued 30 mg IVP X1 ONE Ondansetron Inj [Zofran Inj] Med 11/28/24 02:03 Discontinued 4 mg IVP X1 ONE Ondansetron Inj [Zofran Inj] Med 11/28/24 04:08 Discontinued 4 mg IVP X1 ONE Ringers Lactated 1000 ml [Lactated Ringers] 1,000 ml Med 11/28/24 04:09 Discontinued IV 1,000 mls/hr Sodium Chloride 0.9% 1000 ml [Ns] 1,000 ml Med 11/28/24 02:03 Discontinued IV 999 mls/hr Vital Signs Vital signs: Vital Signs Temperature 97.9 F 11/28/24 02:02 Pulse Rate 113 H 11/28/24 02:02 Respiratory Rate 24 H 11/28/24 02:02 Blood Pressure 150/110 H 11/28/24 02:02 Pulse Oximetry (%) 96 11/28/24 02:02 Oxygen Delivery Method Room Air 11/28/24 02:02 Abdominal Pain MDM MDM Narrative MDM Narrative:: This section includes all my notes and documentations, including HPI, PE, and ED course. Carlton Anderson MD HPI: 29 y/o male here with abdominal pain. Reports upper abdominal pain for several days, severe in the past several hours. With nausea and vomiting. Had cholecystectomy in the past. No fever. No urinary symptoms. No other complaints. ROS: All negative except as documented in HPI. Physical Exam: General: Alert and oriented. In severe pain. Eyes: Conjunctivae and lids clear. ENT: No nasal congestion. Neck: Supple. Heart: RRR. Lungs: No respiratory distress. Good air movement. No rhonchi, wheezing, rales. Abdomen: Soft with severe upper quadrant tenderness. Normal bowel sounds. No distension. No rebound or guarding. Back: No CVA tenderness. Skin: Warm and dry. Neuro: Alert and oriented X 3. I reviewed all diagnostic test results: My review of the Gall Bladder US report is no acute findings. My review of the Abdomen/Pelvis CT report is no acute findings. Blood tests unremarkable At this point, diagnoses include: Abdominal Pain possibly due to gastritis Treatment here included: IVF Dilaudid 2 mg Zofran 4 mg Toradol 30 mg Zofran 4 mg Dilaudid 1 mg Significant improvement noted. Recommend outpatient care. Discharge instructions from Dr. Anderson: ?After evaluation, your symptoms may be due to stomach ulcer (see attached handout).? ?To help heal the ulcer, take Omeprazole 40 mg every morning and Famotidine 40 mg at bedtime for a month. ?Zofran for nausea/vomiting.? Clear liquid diet for 24 hours.? Then slowly advance diet as tolerated. ?Avoid food and beverages that can trigger and worsen ulcers.? See attached handout. ?See a private doctor on 11/29/2024 for recheck and further care. Ask to review all test results and official radiology reports, to make sure you receive all necessary follow-ups and monitoring. To make sure there is no serious intra-abdominal condition, ask for help with more investigation not available here in the ER.? Such as MRCP, EGD or scoping the stomach, colonoscopy or scoping the colon, and referral to see choir teacher. ?Seek immediate medical care with worsening or with any concerns. Carlton Anderson MD Patient data External records reviewed:: [facility] previous records (Reviewed prior ED records for 11/26/24. Patient was seen for Cannabinoid hyperemesis syndrome.) Clinical information provided by:: patient Social determinants that could affect healthcare access:: substance use (Marijuana) Patient has the following chronic illnesses:: Recreational Drug Use, Depression and Anxiety How is presenting disease/condition affected by chronic disease/condition?: exacerbated by Evaluation data The following diagnostics were reviewed and interpreted by me:: lab results and radiology exam(s) Lab and/or radiology exams considered but not ordered:: None Interpretation Summary: I reviewed all diagnostic test results: My review of the Gall Bladder US report is no acute findings. My review of the Abdomen/Pelvis CT report is no acute findings. Blood tests unremarkable Medications / Prescriptions Medications or Prescriptions considered but not ordered:: None Medication administrations:: Medication Administration History Discontinued Medications Hydromorphone HCl (Hydromorphone Inj 2 Mg/Ml Vial) 2 mg IVP X1 ONE Stop: 11/28/24 02:04 Last Admin: 11/28/24 02:14 Dose: 2 mg Documented By: SUZIE Hydromorphone HCl (Hydromorphone Inj 2 Mg/Ml Vial) 1 mg IVP X1 ONE Stop: 11/28/24 04:09 Last Admin: 11/28/24 04:24 Dose: 1 mg Documented By: SUZIE Sodium Chloride (Ns) 1,000 mls @ 999 mls/hr IV .Q1H1M ONE Stop: 11/28/24 03:03 Last Infusion: 11/28/24 03:17 Dose: Infused Documented By: Admin: 11/28/24 02:13 Dose: 999 mls/hr Documented By: SUZIE Lactated Ringer's (Lactated Ringers) 1,000 mls @ 1,000 mls/hr IV .Q1H ONE Stop: 11/28/24 05:08 Last Infusion: 11/28/24 05:40 Dose: Infused Documented By: Admin: 11/28/24 04:28 Dose: 1,000 mls/hr Documented By: SUZIE Ketorolac Tromethamine (Ketorolac Inj 30 Mg/Ml Vial) 30 mg IVP X1 ONE Stop: 11/28/24 04:09 Last Admin: 11/28/24 04:26 Dose: 30 mg Documented By: SUZIE Ondansetron HCl (Ondansetron Inj 2 Mg/Ml Inj 2 Ml) 4 mg IVP X1 ONE; Protocol Stop: 11/28/24 02:04 Last Admin: 11/28/24 02:16 Dose: 4 mg Documented By: SUZIE Ondansetron HCl (Ondansetron Inj 2 Mg/Ml Inj 2 Ml) 4 mg IVP X1 ONE; Protocol Stop: 11/28/24 04:09 Last Admin: 11/28/24 04:28 Dose: 4 mg Documented By: SUZIE Treatment here included: IVF Dilaudid 2 mg Zofran 4 mg Toradol 30 mg Zofran 4 mg Dilaudid 1 mg Consultations Consultation(s) initiated? (list below): No Diagnosis Differential diagnosis abdominal pain: abdominal pain, acute appendicitis, calculus of kidney, constipation, diverticulitis, gastroenteritis, pancreatitis, small bowel obstruction and other (ischemic bowel, LBO) Most likely diagnosis given after review of the tests above:: Abdominal pain possibly due to gastritis Admission Indicated Admission indicated?: not indicated Explain why admission is indicated or not indicated:: With significant improvement and no condition needing emergent intervention, there was no indication for admission. Admission Request Was there a request for admission?: No Disposition Plan Disposition Plan: Discharge Discharge Attestation Discharge Attestation: The patient and all family members were given an opportunity to ask questions and understood the discharge instructions. Discharge instructions specifically effects, indications for sooner follow up or return to the emergency department, and the expected course of current diagnosis. Patient condition: Stable Discharge Plan Plan Patient Disposition: HOME (Self Care) Prescriptions/Referrals Prescriptions/Med Rec: New famotidine 40 mg tablet 40 mg PO .bedtime Qty: 30 0RF omeprazole 40 mg capsule,delayed release(DR/EC) 40 mg PO QDAY Qty: 30 0RF ondansetron 4 mg tablet,disintegrating 4 mg PO TID PRN (Reason: nausea and vomiting) 30 Days Qty: 10 0RF No Action folic acid 1 mg tablet 1 mg PO QDAY Qty: 30 0RF thiamine HCl (vitamin B1) 100 mg capsule 100 mg PO QDAY Qty: 30 0RF acetaminophen-codeine 300-30 mg tablet 2 tab PO Q8H MDD 6 PRN (Reason: pain) Qty: 20 0RF metoclopramide HCl [Reglan] 10 mg tablet 10 mg PO Q6H PRN (Reason: nausea and vomiting) Qty: 20 0RF benztropine 1 mg tablet 1 mg PO BID Qty: 14 0RF Problem List Clinical Impression: Abdominal pain Patient/Caregiver Discharge Instructions Discharge Activity: activity as tolerated Education Materials: ED PEPTIC ULCER vs GASTRITIS, ED Unknown Causes of Abdominal ... Additional Instructions: Discharge instructions from Dr. Anderson: ?After evaluation, your symptoms may be due to stomach ulcer (see attached handout).? ?To help heal the ulcer, take Omeprazole 40 mg every morning and Famotidine 40 mg at bedtime for a month. ?Zofran for nausea/vomiting.? Clear liquid diet for 24 hours.? Then slowly advance diet as tolerated. ?Avoid food and beverages that can trigger and worsen ulcers.? See attached handout. ?See a private doctor on 11/29/2024 for recheck and further care. Ask to review all test results and official radiology reports, to make sure you receive all necessary follow-ups and monitoring. To make sure there is no serious intra-abdominal condition, ask for help with more investigation not available here in the ER.? Such as MRCP, EGD or scoping the stomach, colonoscopy or scoping the colon, and referral to see choir teacher. ?Seek immediate medical care with worsening or with any concerns. Print Language: French Stand Alone Forms: Jenn Award Info., Patient Portal Info Letter
[2024-11-28] MEDS: SODIUM CHLORIDE 0.9% 1000 ML 1,000 ML 999 ML IV (02:13)
[2024-11-28] MEDS: HYDROmorphone INJ 2 MG/ML VIAL IVP (02:14)
[2024-11-28] MEDS: ONDANSETRON INJ 2 MG/ML INJ 2 ML 4 MG IVP ×2 (02:16→04:28)
[2024-11-28 02:19] LABS: Basophils # (Auto) 0.1 Thou/mm3 (0.0-0.2); Basophils % (Auto) 1 % (0-2.5); Eosinophils # (Auto) 0.0 Thou/mm3 (0.0-0.5); Eosinophils % (Auto) 0 % (0-10); Hematocrit 40.5 % (41.0-53.0); Hemoglobin 14.2 g/dL (13.5-16.0); Immature Granulocytes Auto 0.05 Thou/mm3 (0.00-0.00); Lymphocytes # (Auto) 1.1 Thou/mm3 (1.0-4.8); Lymphocytes % (Auto) 8 % (10-50); Mean Corpuscular HGB Conc 35.1 g/dl (31.0-37.0); Mean Corpuscular Hemoglobin 31.7 pg (25.0-35.0); Mean Corpuscular Volume 90 fL (80-100); Monocytes # (Auto) 0.5 Thou/mm3 (0.0-0.8); Monocytes % (Auto) 4 % (0-12); Neutrophils # (Auto) 12.0 Thou/mm3 (1.8-7.7); Neutrophils % (Auto) 87 % (37-80); Nucleated Red Blood Cell # 0.00 Thou/mm3 (0.00-0.00); Nucleated Red Blood Cell % 0 /100 WBC (0); Platelet Count 322 Thou/mm3 (140-440); RDW Standard Deviation 43.8 fL (35.1-43.9); Red Blood Count 4.48 Miln/mm3 (4.50-5.90); White Blood Count 13.8 Thou/mm3 (3.8-10.6)
[2024-11-28 02:36] LABS: Sed Rate (ESR) 8 mm/hr (0-15)
[2024-11-28 02:42] LABS: Alanine Aminotransferase 12 U/L (10-49); Albumin, Serum 4.6 gm/dL (3.5-5.0); Albumin/Globulin Ratio 2.1 (1.2-2.2); Alcohol, Blood Medical < 3.0 mg/dL (0-10.0); Alkaline Phosphatase 70 U/L (46-116); Anion Gap 12 (7-16); Aspartate Amino Transferase 21 U/L (0-34); BUN/Creatinine Ratio 10 Ratio (12-20); Bilirubin,Direct 0.1 mg/dL (0.0-0.3); Bilirubin,Total 0.4 mg/dL (0.3-1.2); Blood Urea Nitrogen 10 mg/dL (9-23); C-Reactive Protein < 0.5 mg/dL (0.0-0.9); Calcium 9.8 mg/dL (8.3-10.6); Calcium (Corrected) 9.8 mg/dL (8.5-10.1); Carbon Dioxide 25.1 mMol/L (20.0-31.0); Chloride 108 mMol/L (98-107); Creatinine (Component) 1.0 mg/dL (0.6-1.3); Estimated Creatinine Clearance 105.5 mL/min (>60); Globulin 2.2 gm/dL (2.3-3.5); Glucose 156 mg/dL (74-106); Lipase 113 U/L (12-53); Magnesium 1.8 mg/dL (1.6-2.6); Osmolality,Calculated 290 (275-295); Potassium 3.5 mMol/L (3.4-5.1); Procalcitonin 0.04 ng/ml (0.0-0.49); Sodium 145 mMol/L (136-145); Total Protein 6.8 gm/dL (5.7-8.2); eGFR > 60 See Note
[2024-11-28 03:47] VITALS: BP 127/77; PULSE 68; RESP 20; O2SAT 98
--- NOTE | 2024-11-28 04:00 | PRELIM_ITS ---
Right upper quadrant abdominal ultrasound with Doppler and wave Doppler spectral analysis. November 28, 2024 at 0228 hours Clinical history: Epigastric tenderness. Technique: Grayscale and color flow images of the right upper quadrant are provided. Hepatic and portal veins were also imaged with color flow images. Comparison: No prior study is available for comparison. Findings: The liver is normal in echogenicity. No intrahepatic biliary ductal dilatation. Status postcholecystectomy. The common bile duct measures 0.5 cm. The pancreas is unremarkable to the extent visualized. The imaged portions of the right kidney are within normal limits. The portal vein is patent with hepatopetal flow and normal with Doppler spectral analysis. Impression: Prominent CBD, possibly functionally status post cholecystectomy. If choledocholithiasis is clinically suspected consider correlation with MRCP. Report Electronically Signed By: Cliff Graff 11/28/2024 4:00:23 AM [EST]
[2024-11-28] MEDS: HYDROmorphone INJ 2 MG/ML VIAL 1 MG IVP (04:24)
[2024-11-28] MEDS: KETOROLAC INJ 30 MG/ML VIAL IVP (04:26)
[2024-11-28] MEDS: RINGERS LACTATED 1000 ML 1,000 ML IV (04:28)
--- NOTE | 2024-11-28 04:41 | PRELIM_ITS ---
CT scan of the abdomen and pelvis without intravenous contrast (axial sections with sagittal and coronal reformats) November 28, 2024 0358 hours Clinical History: ABD PAIN Comparison: No prior study is available for comparison. Findings: The lung bases are clear. The gallbladder is surgically absent. The liver, pancreas, spleen, kidneys and adrenals are unremarkable on this noncontrast study. No evidence of bowel obstruction. There is submucosal fatty infiltration of the acceding and descending colon, likely related to prior inflammation. A moderate amount of fecal material is present in the colon. The appendix is within normal limits (coronal images 75-81/158). There is no mesenteric or retroperitoneal adenopathy. The urinary bladder is unremarkable. There is no free fluid or free air. The osseous structures are unremarkable. Impression: No evidence of bowel obstruction, free air or abscess. Other findings as described above. Report Electronically Signed By: Dipika Mosqueda 11/28/2024 4:41:51 AM [EST]
[2024-11-28 05:14] VITALS: BP 112/69; PULSE 62; RESP 16; TEMP 36.7; O2SAT 96
== END 2024-11-28 05:55 | disposition home or self-care (01) ==
LOC: SERX 05:52
PROVIDERS: Emergency Provider Emergency Medicine; PCP Family Medicine
DX: R10.10 Upper abdominal pain, unspecified (principal); R10.13 Epigastric pain; R11.2 Nausea with vomiting, unspecified; K25.9 Gastric ulcer, unspecified as acute or chronic, without hemorrhage or perforation; K29.70 Gastritis, unspecified, without bleeding
CPT/HCPCS: 36415; 74176; 76705; 80053; 80307; 80320; 81001; 82248; 83690; 83735; 84145; 85025; 85652; 86140; 96361; 96374; 96375; 96376; 99284; J1171; J1885; J2405; J7030; J7120; G0480

== ENCOUNTER 2024-11-29 22:30 | Emergency (ER) | payer MEDICAID, SELFPAY ==
[2024-11-29 22:33] VITALS: BMI 24.7
[2024-11-29 22:34] VITALS: BP 138/79; PULSE 77; TEMP 36.7; O2SAT 96
--- NOTE | 2024-11-29 22:34 | EDNOTE_ITS ---
ED Abdominal Pain RME/HPI General Chief Complaint: Abdominal Pain Stated complaint: ABD PAIN Time seen by provider: 11/29/24 22:38 Arrival date/time: 11/29/24 22:30 RME / HPI RME / HPI narrative: See MDM for Dr. Anderson's HPI documentation. Related Data Previous Rx's ?Medication ?Instructions ?Recorded acetaminophen 300 mg-codeine 30 mg 2 tab PO Q8H PRN pa in #20 tabs 08/05/24 tablet folic acid 1 mg tablet 1 mg PO QDAY #30 tabs thiamine HCl (vitamin B1) 100 mg 100 mg PO QDAY #30 ca ps 08/05/24 capsule benztropine 1 mg tablet 1 mg PO BID #14 tabs 5 metoclopramide HCl 10 mg tablet 10 mg PO Q6H PRN nause a and 11/26/24 (Reglan) vomiting #20 tabs famotidine 40 mg tablet 40 mg PO .bedtime #30 tabs 0 11/28/24 omeprazole 40 mg capsule,delayed 40 mg PO QDAY #30 cap s 11/28/24 release ondansetron 4 mg disintegrating 4 mg PO TID PRN nausea and 11/28/24 tablet vomiting 30 days #10 tabs Allergies Allergy/AdvReac Type Severity Reaction Status Date / Time No Known Allergies Allergy Verified 11/03/24 13:02 Review of Systems Review of Systems Systems Reviewed: All systems reviewed, normal except as documented Past Medical History Past Medical History NEUROLOGIC: Negative Neurological Disorders or Seizures CARDIAC: Negative Cardiac Disorders or Congestive Heart Failure RESPIRATORY: Negative Chronic Obstructive Pulmonary Disease (COPD) or Asthma GASTROINTESTINAL: Negative Gastrointestinal Disorders, Gall Bladder Disease or Gastroesophageal Reflux Disease GENITOURINARY: Negative Genitourinary Disorders or Renal Disease MUSCULOSKELETAL: Positive Fractures; Negative Musculoskeletal Disorders ENDOCRINE: Negative Endocrine Disorders, Diabetes Mellitus Type 1 or Diabetes Mellitus Type 2 HEMATOLOGIC: Negative Blood Disorders or Sickle Cell Disease PSYCHO/SOCIAL: Positive Recreational Drug Use, Depression and Anxiety OTHER HISTORY: Positive Hospitalization; Negative Autoimmune Disease, Blood Transfusions, Blood Transfusion Reaction, Anesthesia Reactions, MRSA, Clostridium Difficile or Cancer Family History FAMILY HISTORY: Positive Family Cardiac Disorders; Negative Family Psychiatric Problems, Family Respiratory Disorders, Family Gastrointestinal Problems, Family Cancer, Family Surgery or Family Anesthesia Reaction Surgical History SURGICAL: Negative Cardiac Surgery, Endocrine Surgery, Ear Surgery or Neurologic Surgery Social History SMOKING STATUS: Former smoker SUBSTANCE USE: marijuana ED Exam Narrative Physical exam: See [facility] for Dr. Anderson's physical exam documentation. Course Quality Measures none Orders Category Date Time Status Bedside COVID-19 Antigen Test NOW Care 11/29/24 22:38 Active Bedside Influenza A&B Antigen Test NOW Care 11/29/24 22:39 Completed MRI Screening NOW Care 11/29/24 22:40 Active Saline [Insert IV] NOW Care 11/29/24 22:39 Completed Straight [In and Out Catheter] X1 Care 11/29/24 22:39 Active MR MRCP Stat Exams 11/29/24 Ordered Alcohol, Blood Medical Stat Lab 11/29/24 22:47 Completed Amylase Stat Lab 11/29/24 22:47 Completed Beta Hydroxybutyrate Stat Lab 11/29/24 22:47 Completed Bilirubin,Direct Stat Lab 11/29/24 22:47 Completed Blood Culture (Lab) Stat Lab 11/29/24 22:39 Received CBC Stat Lab 11/29/24 22:47 Completed CK [Creatine Kinase] Stat Lab 11/29/24 22:47 Completed CMP [Comprehensive Metabolic Panel] Stat Lab 11/29/24 22:47 Completed CRP [C-Reactive Protein] Stat Lab 11/29/24 22:47 Completed Drug Screen,Urine Stat Lab 11/29/24 22:50 Completed ESR [Sed Rate (ESR)] Stat Lab 11/29/24 22:47 Completed Lactate (Lactic Acid) Stat Lab 11/29/24 22:47 Results Lipase Stat Lab 11/29/24 22:47 Completed Magnesium Stat Lab 11/29/24 22:47 Completed Procalcitonin Stat Lab 11/29/24 22:47 Completed TSH [Thyroid Stimulating Hormone] Stat Lab 11/29/24 22:47 Completed UA, C/S IF [Urinalysis, C/S if Indicated] Stat Lab 11/29/24 22:50 Completed Ondansetron Inj [Zofran Inj] Med 11/29/24 22:39 Discontinued 4 mg IVP X1 ONE Ringers Lactated 1000 ml [Lactated Ringers] 1,000 ml Med 11/30/24 01:22 Ordered IV 200 mls/hr Sodium Chloride 0.9% 1000 ml [Ns] 1,000 ml Med 11/29/24 22:39 Discontinued IV 999 mls/hr Vital Signs Vital signs: Vital Signs Temperature 98.1 F 11/29/24 22:34 Pulse Rate 77 11/29/24 22:34 Blood Pressure 138/79 H 11/29/24 22:34 Pulse Oximetry (%) 96 11/29/24 22:34 Oxygen Delivery Method Room Air 11/29/24 22:34 Abdominal Pain MDM MDM Narrative MDM Narrative:: This section includes all my notes and documentations, including HPI, PE, and ED course. Carlton Anderson MD HPI: 29yo male BIBA here with severe abdominal pain. Received fentanyl by EMS. Has history of frequent episodes of severe abdominal pain and vomiting with frequent ER visits. I took care of him a couple days ago. Ultrasound read by our teleradiologist recommended MRCP due to prominent CBD. But he elected to go home prior to MRCP. Today, he agrees to stay until MRCP. No other complaints. ROS: All negative except as documented in HPI. Physical Exam: General: Alert and oriented. No acute distress when remaining still. Eyes: Conjunctivae and lids clear. ENT: No nasal congestion. Neck: Supple. Heart: RRR. Lungs: No respiratory distress. Good air movement. No rhonchi, wheezing, rales. Abdomen: Soft and nontender. Normal bowel sounds. No distension. No rebound or guarding. Back: No CVA tenderness. Skin: Warm and dry. Neuro: Alert and oriented X 3. I reviewed EMS notes. I reviewed all diagnostic test results. Blood tests remarkable for WBC 11.1, Lactic Acid 3.6, CK 575. UDS positive for marijuana. COVID/Influenza negative. At this point, diagnoses include: Abdominal pain Mild rhabdomyolysis Marijuana use Treatment here included: IV fluid Zofran MRCP ordered. At 6 AM on 11/29/2024, the care of the patient was transferred to Dr. Su. Carlton Anderson MD Patient data External records reviewed:: [facility] previous records (Per chart review, patient was seen here on 11/28/24 for the same complaint.) and EMS form Clinical information provided by:: patient Social determinants that could affect healthcare access:: none Patient has the following chronic illnesses:: none How is presenting disease/condition affected by chronic disease/condition?: no chronic disease Evaluation data The following diagnostics were reviewed and interpreted by me:: lab results Lab and/or radiology exams considered but not ordered:: none Interpretation Summary: I reviewed all diagnostic test results. Blood tests remarkable for WBC 11.1, Lactic Acid 3.6. UDS positive for marijuana. COVID/Influenza negative. Medications / Prescriptions Medications or Prescriptions considered but not ordered:: none Medication administrations:: Medication Administration History Lactated Ringer's (Lactated Ringers) 1,000 mls @ 200 mls/hr IV .Q5H ONE Stop: 11/30/24 06:21 Discontinued Medications Sodium Chloride (Ns) 1,000 mls @ 999 mls/hr IV .Q1H1M ONE Stop: 11/29/24 23:39 Last Infusion: 11/30/24 00:14 Dose: Infused Documented By: Admin: 11/29/24 22:52 Dose: 999 mls/hr Documented By: MARIAH Ondansetron HCl (Ondansetron Inj 2 Mg/Ml Inj 2 Ml) 4 mg IVP X1 ONE; Protocol Stop: 11/29/24 22:40 Last Admin: 11/29/24 22:53 Dose: 4 mg Documented By: MARIAH IV fluid, Zofran Consultations Consultation(s) initiated? (list below): No Diagnosis Differential diagnosis abdominal pain: other (Biliary colic, choledocholithia sis, marijuana use, psychogenic) Most likely diagnosis given after review of the tests above:: MRCP pending Admission Indicated Admission indicated?: not indicated Explain why admission is indicated or not indicated:: MRCP pending Admission Request Was there a request for admission?: No Disposition Plan Disposition Plan: other (specify) (Signed out to Dr. Su at 6 AM. ) Discharge Plan Prescriptions/Referrals Prescriptions/Med Rec: No Action folic acid 1 mg tablet 1 mg PO QDAY Qty: 30 0RF thiamine HCl (vitamin B1) 100 mg capsule 100 mg PO QDAY Qty: 30 0RF acetaminophen-codeine 300-30 mg tablet 2 tab PO Q8H MDD 6 PRN (Reason: pain) Qty: 20 0RF metoclopramide HCl [Reglan] 10 mg tablet 10 mg PO Q6H PRN (Reason: nausea and vomiting) Qty: 20 0RF benztropine 1 mg tablet 1 mg PO BID Qty: 14 0RF famotidine 40 mg tablet 40 mg PO .bedtime Qty: 30 0RF omeprazole 40 mg capsule,delayed release(DR/EC) 40 mg PO QDAY Qty: 30 0RF ondansetron 4 mg tablet,disintegrating 4 mg PO TID PRN (Reason: nausea and vomiting) 30 Days Qty: 10 0RF Referrals: Nadir Khoury MD [Primary Care Provider] - In 1 week Problem List Clinical Impression: Abdominal pain, Rhabdomyolysis, Marijuana use Patient/Caregiver Discharge Instructions Print Language: Liberian
[2024-11-29 22:39] VITALS: PULSE 86; RESP 24; O2SAT 98
[2024-11-29 22:42] VITALS: BP 121/78; PULSE 68; RESP 19; TEMP 36.9; O2SAT 96
[2024-11-29] MEDS: SODIUM CHLORIDE 0.9% 1000 ML 1,000 ML 999 ML IV (22:52)
[2024-11-29] MEDS: ONDANSETRON INJ 2 MG/ML INJ 2 ML 4 MG IVP (22:53)
[2024-11-29 23:05] LABS: Collection Type, Urine Clean Catch; Squamous Epithelial Cell,Urine 0 /hpf (0-5)
[2024-11-29 23:07] LABS: Lactate (Lactic Acid) 3.6 mMol/L (0.4-2.0)
[2024-11-29 23:08] LABS: Basophils # (Auto) 0.0 Thou/mm3 (0.0-0.2); Basophils % (Auto) 0 % (0-2.5); Eosinophils # (Auto) 0.0 Thou/mm3 (0.0-0.5); Eosinophils % (Auto) 0 % (0-10); Hematocrit 38.0 % (41.0-53.0); Hemoglobin 13.4 g/dL (13.5-16.0); Immature Granulocytes Auto 0.06 Thou/mm3 (0.00-0.00); Lymphocytes # (Auto) 0.8 Thou/mm3 (1.0-4.8); Lymphocytes % (Auto) 7 % (10-50); Mean Corpuscular HGB Conc 35.3 g/dl (31.0-37.0); Mean Corpuscular Hemoglobin 32.3 pg (25.0-35.0); Mean Corpuscular Volume 92 fL (80-100); Monocytes # (Auto) 0.6 Thou/mm3 (0.0-0.8); Monocytes % (Auto) 5 % (0-12); Neutrophils # (Auto) 9.6 Thou/mm3 (1.8-7.7); Neutrophils % (Auto) 87 % (37-80); Nucleated Red Blood Cell # 0.00 Thou/mm3 (0.00-0.00); Nucleated Red Blood Cell % 0 /100 WBC (0); Platelet Count 283 Thou/mm3 (140-440); RDW Standard Deviation 45.3 fL (35.1-43.9); Red Blood Count 4.15 Miln/mm3 (4.50-5.90); White Blood Count 11.1 Thou/mm3 (3.8-10.6)
[2024-11-29 23:10] LABS: Beta Hydroxybutyrate 0.1 mmol/L (<0.6)
[2024-11-29 23:11] LABS: Bilirubin,Urine Negative (Negative); Blood,Urine Trace (Negative); Clarity,Urine Clear (Clear/Hazy); Color,Urine Lt-Yellow (Lt Yel-Yel); Culture Indicated,Urine Not Indicated; Glucose, Urine Trace (Negative); Ketones,Urine Negative (Negative); Leukocyte Esterase,Urine Negative (Negative); Nitrite,Urine Negative (Negative); PH,Urine 5.5 (5.0-7.0); Protein,Urine Negative (Neg - Trace); RBC,Urine 2 /hpf (0-3); Specific Gravity,Urine 1.014 (1.001-1.035); Urobilinogen,Urine Negative mg/dL (0.0-1.0); WBC,Urine 1 /hpf (0-5)
[2024-11-29 23:16] LABS: Sed Rate (ESR) 4 mm/hr (0-15)
[2024-11-29 23:17] LABS: Amphetamine/Methamp Scrn,U Negative (Negative); Barbiturate Screen,Urine Negative (Negative); Benzodiazepines Screen,Urine Negative (Negative); Benzoylecgonine Screen, Ur Negative (Negative); Fentanyl Screen,Urine Positive (Negative); Opiate Screen,Urine Negative (Negative); THC Screen,Urine Positive (Negative)
[2024-11-29 23:43] LABS: Alanine Aminotransferase 16 U/L (10-49); Albumin, Serum 4.5 gm/dL (3.5-5.0); Albumin/Globulin Ratio 2.1 (1.2-2.2); Alkaline Phosphatase 63 U/L (46-116); Amylase 62 U/L (30-118); Anion Gap 13 (7-16); Aspartate Amino Transferase 39 U/L (0-34); BUN/Creatinine Ratio 6 Ratio (12-20); Bilirubin,Direct 0.1 mg/dL (0.0-0.3); Bilirubin,Total 0.4 mg/dL (0.3-1.2); Blood Urea Nitrogen 5 mg/dL (9-23); Calcium 10.1 mg/dL (8.3-10.6); Calcium (Corrected) 10.1 mg/dL (8.5-10.1); Carbon Dioxide 24.7 mMol/L (20.0-31.0); Chloride 104 mMol/L (98-107); Creatine Kinase 575 U/L (34-171); Creatinine (Component) 0.9 mg/dL (0.6-1.3); Estimated Creatinine Clearance 121.1 mL/min (>60); Globulin 2.1 gm/dL (2.3-3.5); Glucose 120 mg/dL (74-106); Lipase 29 U/L (12-53); Magnesium 2.0 mg/dL (1.6-2.6); Osmolality,Calculated 281 (275-295); Potassium 3.5 mMol/L (3.4-5.1); Procalcitonin < 0.04 ng/ml (0.0-0.49); Sodium 142 mMol/L (136-145); Thyroid Stimulating Hormone 0.58 uIU/mL (0.55-4.78); Total Protein 6.6 gm/dL (5.7-8.2); eGFR > 60 See Note
[2024-11-29 23:48] LABS: Alcohol, Blood Medical < 3.0 mg/dL (0-10.0); C-Reactive Protein < 0.5 mg/dL (0.0-0.9)
--- NOTE | 2024-11-30 | XR_ITS ---
MRI abdomen, without contrast. MRCP Date and time of exam: November 30, 2024 0838 hours INDICATIONS: Abdominal pain and vomiting today, absent gallbladder, no common bile duct stones on gallbladder sonogram November 28, 2024 Technique: Multiple axial and coronal images of the abdomen have been obtained with the Siemens 1.5T MRI scanner. Images obtained included T1 weighted transverse images, T2-weighted transverse images, T2-weighted transverse images fat-suppressed, T2 weighted haste fat suppressed transverse images, T1 weighted images, in and out of phase images, T2-weighted coronal images, breath hold, T2 weighted haze coronal images as well as T2 weighted coronal thick slab images, MRCP. Findings: No focal liver lesions or intrahepatic biliary tract dilatation Absent gallbladder Common hepatic common bile duct 4 mm no stones Pancreatic duct is not dilated No peripancreatic edema Spleen is not enlarged No ascites No hydronephrosis IMPRESSION: Absent gallbladder No common hepatic or common bile duct stone
[2024-11-30] MEDS: RINGERS LACTATED 1000 ML 1,000 ML 200 ML IV (01:49)
[2024-11-30] MEDS: HYDROmorphone INJ 2 MG/ML VIAL IVP (01:50)
[2024-11-30 02:57] LABS: Reflex Lactate? Y
[2024-11-30 04:30] LABS: Lactic Acid, 3 HR 1.4 mMol/L (0.4-2.0)
--- NOTE | 2024-11-30 04:36 | PC.NURSE ---
WE HAD DOWN TIME FROM [id number].
[2024-11-30 05:52] VITALS: BP 131/83; PULSE 49; RESP 16; TEMP 36.8; O2SAT 99
--- NOTE | 2024-11-30 08:49 | PC.NURSE ---
PT IN MRI at this time
--- NOTE | 2024-11-30 10:22 | EDNOTE_ITS ---
Emergency Room Addendum Addendum Narrative: 0600: Care assumed from Dr. Anderson, the previous shift emergency physician. Past medical, surgical, social and family history reviewed. Vitals and home medications reviewed. I will assume the care of the patient at this time, pending MRCP. Please refer to the emergency department record for history and examination from initial visit.?The following addendum documentation note is intended to reflect any pending information, findings, or radiology results not included in the patient?s initial chart. Patient remains clinically stable throughout the emergency department visit. We reviewed all the results, analysis, and treatment plans. Patient is amenable to discharge. Strict return precautions were outlined. RADIOLOGY Ordering Physician: Carlton Anderson MD Date of Service: 11/30/24 Procedure(s): MR MRCP Accession Number(s): [id number] cc: Nadir Khoury MD; Carlton Anderson MD; Jj Mckeon MD~ MRI abdomen, without contrast. MRCP Date and time of exam: November 30, 2024 0838 hours INDICATIONS: Abdominal pain and vomiting today, absent gallbladder, no common bile duct stones on gallbladder sonogram November 28, 2024 Technique: Multiple axial and coronal images of the abdomen have been obtained with the Siemens 1.5T MRI scanner. Images obtained included T1 weighted transverse images, T2-weighted transverse images, T2-weighted transverse images fat-suppressed, T2 weighted haste fat suppressed transverse images, T1 weighted images, in and out of phase images, T2-weighted coronal images, breath hold, T2 weighted haze coronal images as well as T2 weighted coronal thick slab images, MRCP. Findings: No focal liver lesions or intrahepatic biliary tract dilatation Absent gallbladder Common hepatic common bile duct 4 mm no stones Pancreatic duct is not dilated No peripancreatic edema Spleen is not enlarged No ascites No hydronephrosis IMPRESSION: Absent gallbladder No common hepatic or common bile duct stone Dictated By: Jj Mckeon MD Signed By: <Electronically signed by Jj W Maclennan, MD in [place]> 09/04/25 1011
[2024-11-30 11:41] VITALS: BP 128/88; PULSE 61; RESP 18; TEMP 36.7; O2SAT 99
== END 2024-11-30 11:43 | disposition home or self-care (01) ==
PROVIDERS: Emergency Medicine; Emergency Provider Family Medicine; PCP Family Medicine
DX: R10.9 Unspecified abdominal pain (principal); M62.82 Rhabdomyolysis
CPT/HCPCS: 36415; 74181; 80053; 80307; 80320; 81001; 82010; 82150; 82248; 82550; 83605; 83690; 83735; 84145; 84443; 85014; 85018; 85025; 85652; 86140; 87040; 87400; 87811; 96361; 96374; 96375; 99284; J1171; J2405; J7030; J7120; G0480

== ENCOUNTER 2025-02-15 15:21 | Emergency (ER) | payer MEDICAID, SELFPAY ==
[2025-02-15 15:23] VITALS: BP 156/94; PULSE 117; RESP 20; TEMP 36.4; O2SAT 95
[2025-02-15 15:25] VITALS: PULSE 117; RESP 24; O2SAT 96; BMI 28.8
[2025-02-15 15:32] VITALS: BP 146/98; PULSE 115; RESP 20; O2SAT 96
--- NOTE | 2025-02-15 15:40 | EKG_ITS ---
[facility] Test Date: 2025-02-15 Pat Name: NGHIA WADDELL Department: Room: - Gender: Male Seating Captain: : 1995 Requested By: Angela Jacques Order Number: [id number] Reading MD: Angela Jacques Measurements Intervals [place] Rate: 109 P: 65 FL: 124 QRS: 66 QRSD: 69 T: 57 QT: 308 QTc: 416 Interpretive Statements SINUS TACHYCARDIA ABNORMAL RHYTHM ECG Compared to ECG 08/05/2024 16:10:18 No significant changes /store/S0/[id number].pdf
[2025-02-15] MEDS: PANTOPRAZOLE 40 MG TABLET PO (15:44)
[2025-02-15] MEDS: KETOROLAC INJ 30 MG/ML VIAL IM (15:44)
--- NOTE | 2025-02-15 15:44 | EDNOTE_ITS ---
<Statement entered by Lexis Palma MD - 02/15/25 18:04> I, Lexis Palma MD, have reviewed the history, exam, and assessment of the patient. I have evaluated the patient independently and agree with the plan of care documented by Dr. Jacques. All diagnostic studies were reviewed and discussed. I confirm the diagnosis as documented by the Resident. I was present during the Medical Decision Making for this patient. The patient's plan of care was created between myself and the Resident and consistent with our discussion of the patient's case. ED Abdominal Pain RME/HPI General Chief Complaint: Abdominal Pain Stated complaint: ABDOMINAL PAIN/ SOB Time seen by provider: 02/15/25 15:34 Arrival date/time: 02/15/25 15:21 RME / HPI RME / HPI narrative: cc: abdominal pain Patient is a 29-year-old male with a past medical history of cannabinoid hyperemesis, gastritis alcohol use disorder, cholecystectomy, history of PTSD who presented to the emergency room with a chief complaint of diffuse abdominal tenderness starting this morning. Patient denied hematemesis or hemoptysis. Patient denied constipation. Patient denied blood. Patient denied urinary symptoms. Patient does not admit to using illicit substance or alcohol use. Denied SI. Related Data Previous Rx's ?Medication ?Instructions ?Recorded acetaminophen 300 mg-codeine 30 mg 2 tab PO Q8H PRN pa in #20 tabs 08/05/24 tablet folic acid 1 mg tablet 1 mg PO QDAY #30 tabs thiamine HCl (vitamin B1) 100 mg 100 mg PO QDAY #30 ca ps 08/05/24 capsule benztropine 1 mg tablet 1 mg PO BID #14 tabs 5 metoclopramide HCl 10 mg tablet 10 mg PO Q6H PRN nause a and 11/26/24 (Reglan) vomiting #20 tabs famotidine 40 mg tablet 40 mg PO .bedtime #30 tabs 0 11/28/24 omeprazole 40 mg capsule,delayed 40 mg PO QDAY #30 cap s 11/28/24 release Allergies Allergy/AdvReac Type Severity Reaction Status Date / Time No Known Allergies Allergy Verified 02/15/25 15:31 Review of Systems Review of Systems Narrative Review of Systems: General appearance: NO weight change, NO fatigue, NO weakness, NO fever, NO chills, NO night sweats, No cough Skin: NO rash, NO itching, NO sores, NO moles HEENT: NO Trauma, NO nausea, NO vomiting, NO visual changes, NO blurry vision, NO double vision, NO tinnitus, NO vertigo, NO ear discharge, NO rhinorrhea, NO stuffiness, NO sneezing, NO allergy, NO epistaxis. NO Hoarseness, NO sore throat, NO swollen neck. Cardiac: NO Palpitations, NO dyspnea on exertion, NO orthopnea, NO paroxysmal nocturnal dyspnea, NO edema Respiratory: NO Shortness of Breath, NO Wheezing, NO Cough, NO Sputum, NO hemoptysis GI:NO appetite, Yes nausea, NO vomiting, NO dysphagia, NO changes in bowel frequency, NO stool color, NO diarrhea, NO constipation, NO hemetemesis, NO hemorrhoids, NO melena, NO hematechezia, Yes abdominal pain, NO jaundice Renal: NO frequency, NO hesitancy, NO urgency, NO hematuria, NO nocturia, NO incontinence MSK: NO muscle weakness, NO gout, NO arthritis, NO muscle stiffness Neuro: NO headaches, NO tremors, NO weakness, NO paralysis, NO seizures, NO loss of consciousness, NO numbness. Hem: NO anemia, NO easy bruising/bleeding, NO petechiae, NO purpura Endo: NO heat/cold intolerance, NO excessive sweating, NO polyuria, NO polydipsia, NO polyphagia, NO thyroid problems, NO diabetes Pysch: NO mood, NO anxiety, NO depression ED Exam Narrative Physical exam: General Appearance: Alert & Oriented X3, well-nourished male who is lying in bed in mild distress HEENT: Skull symmetrical and atraumatic. Conjunctivae pale pink and moist. Pupils equal, round, reactive to light and accommodation (PERRL). External ear without lesion or discharge. Straight, nares patient, mucosa pink, no discharge. Cardio: Normal Rate and Rhythm with S1 and S2 heart sounds. No murmurs or extra heart sounds auscultated. No bruits on carotid auscultation. No peripheral edema or cyanosis. Lungs: Symmetric with good expansion. Chest and back non-tender. Breath sounds vesicular without crackles, wheezing or rhonchi Abdomen: diffuse tenderness, Non-distended, Normal Reactive Bowel Sounds Neuro: Alert, cooperative, oriented to person, place, and time. Speech clear. CN grossly intact. Upper motor strength 5/5 and Lower motor strength 5/5. Sensation intact. Course Quality Measures none Orders Category Date Time Status EKG (ED ONLY) *Do not use* NOW Care 02/15/25 15:40 Completed Insert IV NOW Care 02/15/25 16:06 Active EKG (ED Only) Stat Exams 02/15/25 15:40 Draft Alcohol, Urine Stat Lab 02/15/25 15:37 Ordered C-Reactive Protein Stat Lab 02/15/25 16:15 Completed CBC Stat Lab 02/15/25 16:15 Completed CMP [Comprehensive Metabolic Panel] Stat Lab 02/15/25 16:15 Completed Drug Screen,Urine Stat Lab 02/15/25 15:37 Ordered Lipase Stat Lab 02/15/25 16:15 Completed Troponin I Stat Lab 02/15/25 16:15 Completed Urinalysis, C/S if Indicated Stat Lab 02/15/25 15:37 Ordered Haloperidol Lactate [Haldol Inj] Med 02/15/25 16:06 Discontinued 5 mg IV X1 ONE Ketorolac Inj [Toradol Inj] Med 02/15/25 15:36 Discontinued 30 mg IM X1 ONE LORazepam [Ativan] Med 02/15/25 15:38 Discontinued 1 mg PO X1 ONE Pantoprazole [Protonix] Med 02/15/25 15:38 Discontinued 40 mg PO X1 ONE Simethicone [Mylicon Chew] Med 02/15/25 15:39 Discontinued 80 mg PO X1 ONE Vital Signs Vital signs: Vital Signs Temperature 97.5 F 02/15/25 15:23 Pulse Rate 117 H 02/15/25 15:23 Respiratory Rate 20 02/15/25 15:23 Blood Pressure 156/94 H 02/15/25 15:23 Pulse Oximetry (%) 95 02/15/25 15:23 Oxygen Delivery Method Room Air 02/15/25 15:23 Abdominal Pain MDM Patient data External records reviewed:: [facility] previous records Clinical information provided by:: patient Social determinants that could affect healthcare access:: substance use Patient has the following chronic illnesses:: cannabinoid hyperemesis, gastritis alcohol use disorder, cholecystectomy, history of PTS How is presenting disease/condition affected by chronic disease/condition?: exacerbated by (substance use ) Evaluation data The following diagnostics were reviewed and interpreted by me:: lab results Lab and/or radiology exams considered but not ordered:: None Interpretation Summary: Patient is a 29-year-old male with a past medical history of cannabinoid hyperemesis, gastritis alcohol use disorder, cholecystectomy, history of PTSD who presented with diffuse abdominal tenderness and reported episodes of emesis. CBC no leukocytosis noted, no anemia note, with mild hypernatremia. Tra nsiminitis with AST 152 and AlT 99. Troponin negative. Lipase negative. EKG sinus tachy. #Abdominal Pain #Cannabinoid Hyperemesis - The patient's plan was discussed with attending Dr. Louie Jacques MD PGY2 Internal Medicine Medications / Prescriptions Medications or Prescriptions considered but not ordered:: None Medication administrations:: Medication Administration History Discontinued Medications Haloperidol Lactate (Haloperidol Lact Inj 5 Mg/Ml Vial) 5 mg IV X1 ONE Stop: 02/15/25 16:07 Last Admin: 02/15/25 16:20 Dose: 5 mg Documented By: AUGUSTUS Ketorolac Tromethamine (Ketorolac Inj 30 Mg/Ml Vial) 30 mg IM X1 ONE Stop: 02/15/25 15:37 Last Admin: 02/15/25 15:44 Dose: 30 mg Documented By: ESTHER Lorazepam (Lorazepam 0.5 Mg Tablet) 1 mg PO X1 ONE Stop: 02/15/25 15:39 Last Admin: 02/15/25 15:44 Dose: 1 mg Documented By: ESTHER Pantoprazole Sodium (Pantoprazole 40 Mg Tablet) 40 mg PO X1 ONE Stop: 02/15/25 15:39 Last Admin: 02/15/25 15:44 Dose: 40 mg Documented By: ESTHER Simethicone (Simethicone 80 Mg Chew) 80 mg PO X1 ONE Stop: 02/15/25 15:40 Last Admin: 02/15/25 16:24 Dose: Not Given Documented By: AGUUSTUS Non-Admin Reason: Discontinued same as above Consultations Consultation(s) initiated? (list below): No Diagnosis Differential diagnosis abdominal pain: abdominal pain, constipation, gastroenteritis and pancreatitis Most likely diagnosis given after review of the tests above:: Patient is a 29-year-old male with a past medical history of cannabinoid hyperemesis, gastritis alcohol use disorder, cholecystectomy, history of PTSD who presented with diffuse abdominal tenderness and reported episodes of emesis. CBC no leukocytosis noted, no anemia note, with mild hypernatremia. Transiminitis with AST 152 and AlT 99. Troponin negative. Lipase negative. EKG sinus tachy. #Abdominal Pain #Cannabinoid Hyperemesis - The patient's plan was discussed with attending Dr. Louie Jacques MD PGY2 Internal Medicine Admission Indicated Admission indicated?: not indicated Explain why admission is indicated or not indicated:: Patient is a 29-year-old male with a past medical history of cannabinoid hyperemesis, gastritis alcohol use disorder, cholecystectomy, history of PTSD who presented with diffuse abdominal tenderness and reported episodes of emesis. CBC no leukocytosis noted, no anemia note, with mild hypernatremia. Transiminitis with AST 152 and AlT 99. Troponin negative. Lipase negative. EKG sinus tachy. #Abdominal Pain #Cannabinoid Hyperemesis - The patient's plan was discussed with attending Dr. Louie Jacques MD PGY2 Internal Medicine Admission Request Was there a request for admission?: No Disposition Plan Disposition Plan: Discharge Discharge Attestation Discharge Attestation: The patient and all family members were given an opportunity to ask questions and understood the discharge instructions. Discharge instructions specifically effects, indications for sooner follow up or return to the emergency department, and the expected course of current diagnosis. Patient condition: Stable Discharge Plan Plan Patient Disposition: HOME (Self Care) Patient condition on transfer: Stable Health Concerns: Instructions: -Please refrain from alcohol, marijuana, or other drug use that may worsen your symptoms of abdominal pain. -Please continue your famotidine as needed. -Please follow up with your primary care provider within one week of discharge -If your symptoms worsen,please seek immediate medical attention and return to your nearest emergency room -If you do not have a primary care provider, [facility] [address], [place] [address], Prescriptions/Referrals Prescriptions/Med Rec: Continued folic acid 1 mg tablet 1 mg PO QDAY Qty: 30 0RF thiamine HCl (vitamin B1) 100 mg capsule 100 mg PO QDAY Qty: 30 0RF acetaminophen-codeine 300-30 mg tablet 2 tab PO Q8H MDD 6 PRN (Reason: pain) Qty: 20 0RF metoclopramide HCl [Reglan] 10 mg tablet 10 mg PO Q6H PRN (Reason: nausea and vomiting) Qty: 20 0RF benztropine 1 mg tablet 1 mg PO BID Qty: 14 0RF famotidine 40 mg tablet 40 mg PO .bedtime Qty: 30 0RF omeprazole 40 mg capsule,delayed release(DR/EC) 40 mg PO QDAY Qty: 30 0RF Referrals: No Primary/Family,Physician [Primary Care Provider] - In 1 week Problem List Clinical Impression: Abdominal pain, Cannabinoid hyperemesis syndrome Patient/Caregiver Discharge Instructions Education Materials: Abdominal Pain Print Language: Comoran Stand Alone Forms: Jenn Award Info., Patient Portal Info Letter
[2025-02-15] MEDS: HALOPERIDOL LACT INJ 5 MG/ML VIAL IV (16:20)
[2025-02-15 16:26] LABS: Basophils # (Auto) 0.1 Thou/mm3 (0.0-0.2); Basophils % (Auto) 1 % (0-2.5); Eosinophils # (Auto) 0.0 Thou/mm3 (0.0-0.5); Eosinophils % (Auto) 0 % (0-10); Hematocrit 44.0 % (41.0-53.0); Hemoglobin 15.3 g/dL (13.5-16.0); Immature Granulocytes Auto 0.04 Thou/mm3 (0.00-0.00); Lymphocytes # (Auto) 1.4 Thou/mm3 (1.0-4.8); Lymphocytes % (Auto) 18 % (10-50); Mean Corpuscular HGB Conc 34.8 g/dl (31.0-37.0); Mean Corpuscular Hemoglobin 32.0 pg (25.0-35.0); Mean Corpuscular Volume 92 fL (80-100); Monocytes # (Auto) 0.5 Thou/mm3 (0.0-0.8); Monocytes % (Auto) 6 % (0-12); Neutrophils # (Auto) 5.8 Thou/mm3 (1.8-7.7); Neutrophils % (Auto) 74 % (37-80); Nucleated Red Blood Cell # 0.00 Thou/mm3 (0.00-0.00); Nucleated Red Blood Cell % 0 /100 WBC (0); Platelet Count 266 Thou/mm3 (140-440); RDW Standard Deviation 45.1 fL (35.1-43.9); Red Blood Count 4.78 Miln/mm3 (4.50-5.90); White Blood Count 7.8 Thou/mm3 (3.8-10.6)
[2025-02-15 16:44] LABS: Alanine Aminotransferase 99 U/L (10-49); Albumin, Serum 5.0 gm/dL (3.5-5.0); Albumin/Globulin Ratio 2.4 (1.2-2.2); Alkaline Phosphatase 116 U/L (46-116); Anion Gap 14 (7-16); Aspartate Amino Transferase 152 U/L (0-34); BUN/Creatinine Ratio 6 Ratio (12-20); Bilirubin,Total 0.4 mg/dL (0.3-1.2); Blood Urea Nitrogen 5 mg/dL (9-23); C-Reactive Protein < 0.5 mg/dL (0.0-0.9); Calcium 8.7 mg/dL (8.3-10.6); Calcium (Corrected) 8.7 mg/dL (8.5-10.1); Carbon Dioxide 26.2 mMol/L (20.0-31.0); Chloride 107 mMol/L (98-107); Creatinine (Component) 0.8 mg/dL (0.6-1.3); Estimated Creatinine Clearance 145.5 mL/min (>60); Globulin 2.1 gm/dL (2.3-3.5); Glucose 140 mg/dL (74-106); Lipase 29 U/L (12-53); Osmolality,Calculated 291 (275-295); Potassium 3.8 mMol/L (3.4-5.1); Sodium 147 mMol/L (136-145); Total Protein 7.1 gm/dL (5.7-8.2); Troponin I < 0.002 ng/mL (0.0-0.045); eGFR > 60 See Note
== END 2025-02-15 18:43 | disposition home or self-care (01) ==
PROVIDERS: Emergency Provider Family Medicine
DX: R11.16 Cannabis hyperemesis syndrome (principal)
CPT/HCPCS: 36415; 80053; 80307; 80320; 81001; 82150; 83605; 83690; 84484; 85025; 86140; 93005; 96372; 99283; J1630; J1885; A9270; G0480

== ENCOUNTER 2025-02-15 18:55 | Emergency (ER) | payer MEDICAID, SELFPAY ==
[2025-02-15 18:55] VITALS: BMI 27.3
[2025-02-15 19:20] VITALS: BP 132/94; PULSE 101; RESP 18; TEMP 36.7; O2SAT 96
--- NOTE | 2025-02-15 19:52 | PD.EDNV ---
Nausea/Vomit./Diarrhea-RME/HPI General Chief complaint: Nausea/Vomiting/Diarrhea Stated complaint: VOMITING Time Seen by Provider: 02/15/25 19:24 Arrival date/time: 02/15/25 18:55 29M with history of homelessness and drug/alcohol use presents to ED wanting a blanket. Patient was discharged 2 hours ago with unremarkable work-up. Limitations: no limitations Related Data Previous Rx's ?Medication ?Instructions ?Recorded acetaminophen 300 mg-codeine 30 mg 2 tab PO Q8H PRN pain #20 tabs 08/05/24 tablet folic acid 1 mg tablet 1 mg PO QDAY #30 tabs 08/05/24 thiamine HCl (vitamin B1) 100 mg 100 mg PO QDAY #30 caps 08/05/24 capsule benztropine 1 mg tablet 1 mg PO BID #14 tabs 11/26/24 metoclopramide HCl 10 mg tablet 10 mg PO Q6H PRN nausea and 11/26/24 (Reglan) vomiting #20 tabs famotidine 40 mg tablet 40 mg PO .bedtime #30 tabs 11/28/24 omeprazole 40 mg capsule,delayed 40 mg PO QDAY #30 caps 11/28/24 release Allergies Allergy/AdvReac Type Severity Reaction Status Date / Time No Known Allergies Allergy Verified 02/15/25 15:31 Review of Systems Review of Systems Systems Reviewed: All systems reviewed, normal except as documented Past Medical History Past Medical History NEUROLOGIC: Negative Neurological Disorders or Seizures CARDIAC: Negative Cardiac Disorders or Congestive Heart Failure RESPIRATORY: Negative Chronic Obstructive Pulmonary Disease (COPD) or Asthma GASTROINTESTINAL: Negative Gastrointestinal Disorders, Gall Bladder Disease or Gastroesophageal Reflux Disease GENITOURINARY: Negative Genitourinary Disorders or Renal Disease MUSCULOSKELETAL: Positive Fractures; Negative Musculoskeletal Disorders ENDOCRINE: Negative Endocrine Disorders, Diabetes Mellitus Type 1 or Diabetes Mellitus Type 2 HEMATOLOGIC: Negative Blood Disorders or Sickle Cell Disease PSYCHO/SOCIAL: Positive Recreational Drug Use, Depression and Anxiety OTHER HISTORY: Positive Hospitalization; Negative Autoimmune Disease, Blood Transfusions, Blood Transfusion Reaction, Anesthesia Reactions, MRSA, Clostridium Difficile or Cancer Family History FAMILY HISTORY: Positive Family Cardiac Disorders; Negative Family Psychiatric Problems, Family Respiratory Disorders, Family Gastrointestinal Problems, Family Cancer, Family Surgery or Family Anesthesia Reaction Surgical History SURGICAL: Negative Cardiac Surgery, Endocrine Surgery, Ear Surgery or Neurologic Surgery Social History SMOKING STATUS: Never smoker SUBSTANCE USE: marijuana ED Exam General Limitations: Present no limitations General appearance: Present in no apparent distress Head Head exam: Present atraumatic Neck Neck exam: Present normal inspection, full ROM and trachea midline Chest Chest inspection: Present normal inspection and symmetric chest wall rise Psychiatric Psychiatric exam: Present normal affect and normal mood Skin Skin exam: Present warm, dry, intact and normal color Course Quality Measures none Vital Signs Vital signs: Vital Signs Temperature 98.1 F 02/15/25 19:20 Pulse Rate 101 H 02/15/25 19:20 Respiratory Rate 18 02/15/25 19:20 Blood Pressure 132/94 H 02/15/25 19:20 Pulse Oximetry (%) 96 02/15/25 19:20 Oxygen Delivery Method Room Air 02/15/25 19:20 O2 at 96% on RA and WNLs Nausea/Vomiting/Diarrhea MDM Narrative MDM Narrative:: 29M with history of homelessness and drug/alcohol use presents to ED wanting a blanket. Patient was discharged 2 hours ago with unremarkable work-up. Physical exam reveals sleep individual. Patient is afebrile and calm. [place] given. Patient data External records reviewed:: [facility] previous records Clinical information provided by:: patient Social determinants that could affect healthcare access:: housing Patient has the following chronic illnesses:: homelessness and drug/alcohol use How is presenting disease/condition affected by chronic disease/condition?: caused by Evaluation data The following diagnostics were reviewed and interpreted by me:: other (specify) (none) Lab and/or radiology exams considered but not ordered:: not ordered Interpretation Summary: n/a Medications / Prescriptions Medications / Prescriptions considered but not ordered:: not ordered Medication administrations:: n/a Consultations Consultation(s) initiated? (list below): No Diagnosis Nausea Differential Diagnosis: traveler's diarrhea, food poisoning, gastroenteritis, clostridium difficile infection, drug-induced nausea and vomiting, dehydration and other (homelessness and drug use) Most likely diagnosis given after review of the tests above:: homelessness and drug/alcohol use Admission Indicated Admission indicated?: not indicated Admission Request Was there a request for admission?: No Disposition Plan Disposition Plan: Discharge Discharge Attestation Discharge Attestation: The patient and all family members were given an opportunity to ask questions and understood the discharge instructions. Discharge instructions specifically effects, indications for sooner follow up or return to the emergency department, and the expected course of current diagnosis. Patient condition: Stable Discharge Plan Plan Patient Disposition: HOME (Self Care) Discharge Disposition comment: Stable Prescriptions/Referrals Prescriptions/Med Rec: No Action folic acid 1 mg tablet 1 mg PO QDAY Qty: 30 0RF thiamine HCl (vitamin B1) 100 mg capsule 100 mg PO QDAY Qty: 30 0RF acetaminophen-codeine 300-30 mg tablet 2 tab PO Q8H MDD 6 PRN (Reason: pain) Qty: 20 0RF metoclopramide HCl [Reglan] 10 mg tablet 10 mg PO Q6H PRN (Reason: nausea and vomiting) Qty: 20 0RF benztropine 1 mg tablet 1 mg PO BID Qty: 14 0RF famotidine 40 mg tablet 40 mg PO .bedtime Qty: 30 0RF omeprazole 40 mg capsule,delayed release(DR/EC) 40 mg PO QDAY Qty: 30 0RF Referrals: No Primary/Family,Physician [Primary Care Provider] - In 1 week Problem List Clinical Impression: Homelessness, Drug use, Alcohol use Patient/Caregiver Discharge Instructions Additional Instructions: Please follow-up with PCP within 24-48 hours and return immediately if symptoms worsen. Print Language: Tunisian Stand Alone Forms: Patient Portal Info Letter PA/TUBE STATION ATTENDANT Supervising Physician NATANAEL/ZOIE Supervising Physician: Dr. Matta
--- NOTE | 2025-02-15 20:10 | PC.NURSE ---
PT IS BEING DISCHARGED. SPOKE WITH HIM AND HE IS HOMELESS. FOOD AND BLANKETS OFFERED. PT INFORMED THAT ITS OK FOR HIM TO STAY IN LOBBY. INFORMED HIM THAT IF HE CAUSES ANY DISTURBANCE, HE WILL BE ASKED TO LEAVE.
== END 2025-02-15 20:19 | disposition home or self-care (01) ==
PROVIDERS: Emergency Provider Emergency Medicine
DX: F10.90 Alcohol use, unspecified, uncomplicated (principal); F19.90 Other psychoactive substance use, unspecified, uncomplicated; Z59.00 Homelessness unspecified
CPT/HCPCS: 99281

== ENCOUNTER 2025-02-24 20:09 | Emergency (ER) | payer MEDICAID, SELFPAY ==
[2025-02-24 20:09] VITALS: BMI 28.1
[2025-02-24 20:10] VITALS: BP 140/68; PULSE 123; RESP 21; TEMP 36.5; O2SAT 94
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
== END 2025-02-24 22:15 ==
PROVIDERS: Emergency Provider Emergency Medicine
DX: Z02.89 Encounter for other administrative examinations (principal); S09.90XA Unspecified injury of head, initial encounter; S29.9XXA Unspecified injury of thorax, initial encounter; S19.9XXA Unspecified injury of neck, initial encounter; Y09 Assault by unspecified means
CPT/HCPCS: 70450; 71045; 72125; 99282